=== PATIENT | female | born 1945 | race Caucasian/White ===

== ENCOUNTER 2017-09-24 16:34 | Inpatient (IN) | payer MEDICARE, OTHER ==
--- NOTE | 2017-09-24 17:03 | ED Physician Chart ---
ED Chief Complaint/HPI - Patient Information Date Seen:: 09/24/17 Time Seen:: 16:45 Chief Complaint:: Agitation History of Present Illness:: onset x one day of agitation and aggressive behavior; no SIs, H/As, neck pain, C /P, Cough, SOB, Abd. Pain, A/N/V/D/C, fever, chills, or urinary s/s Allergies:: Allergies Allergy/AdvReac Type Severity Reaction Status Date / Time MDX No Known Allergies - Nka Allergy Verified 08/16/14 15:25 [No Known Allergies - Nka] Historian:: Patient, EMS Review:: Nurse's Note Reviewed, EMS run form Reviewed, Transfer documents Reviewed ED Review of Systems - Review of Systems General/Constitutional: No fever, No chills, No weight loss, No weakness, No diaphoresis, No edema, No loss of appetite Skin: No skin lesions, No rash, No bruising Head: No headache, No light-headedness Eyes: No loss of vision, No pain, No diplopia ENT: No earache, No nasal drainage, No sore throat, No tinnitus Neck: No neck pain, No swelling, No thyromegaly, No stiffness, No mass noted Cardio Vascular: No chest pain, No palpitations, No PND, No orthopnea, No edema Pulmonary: No SOB, No cough, No sputum, No wheezing GI: Nausea, Vomiting, Diarrhea, No pain, Melena, Hematochezia, No constipation, No hematemesis G/U: No dysuria, No frequency, 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, No abnormal vaginal bleed, No contraction Musculoskeletal: No bone or joint pain, No back pain, No muscle pain Endocrine: No polyuria, No polydipsia Psychiatric: Prior psych history, Depression, Anxiety, No suicidal ideation, No homicidal ideation, No auditory hallucination, No visual hallucination Hematopoietic: No bruising, No lymphadenopathy Allergic/Immuno: No urticaria, No angioedema Neurological: No syncope, No focal symptoms, No weakness, No paresthesia, No headache, No seizure, No dizziness, No confusion, No vertigo ED Past Medical History - Past Medical History Obtainable: Yes Past Medical History: HTN, Dyslipidemia, PUD/GERD, ESRD, Seizures Family History: Diabetes Melitus, HTN Social History: Non Smoker, No Alcohol, No Drug Use, Single, Care Facility Surgical History: Cholecystectomy Psychiatricy History: Depression, Schizophrenia, Bipolar Medication: Reviewed Family Medical History - Family Member Father History Unknown: Yes Ethnicity: Unknown Living Status: Unknown Hx Family Coronary Artery Disease: Yes Hx Family Seizures: Yes ED Physical Exam - Physical Examination General/Constitutional: Awake, Well-developed, well-nourished, Alert, No distress, GCS 15, Non-toxic appearing, Ambulatory Head: Atraumatic Eyes: Lids, conjuctiva normal, PERRL, EOMI Skin: Nl inspection, No rash, No skin lesions, No ecchymosis, Well hydrated, No lymphadenopathy ENMT: External ears, nose nl, Nasal exam nl, Lips, teeth, gums nl Neck: Nontender, Full ROM w/o pain, No JVD, No nuchal rigidity, No bruit, No mass, No stridor Respiratory: Nl effort/Exclusion, Clear to Auscultation, No Wheeze/Rhonchi/Rales Cardio Vascular: RRR, No murmur, gallop, rubs, NL S1 S2 GI: No tenderness/rebounding/guarding, No organomegaly, No hernia, Normal BS's, Nondistended, No mass/bruits, No McBurney tenderness : No CVA tenderness Extremities: No tenderness or effusion, Full ROM, normal strength in all extremities, No edema, Normal digits & nails Neuro/Psych: Alert/oriented, DTR's symmetric, Normal sensory exam, Normal motor strength, Normal gait, No focal deficits Other Neuro/Psych comments:: + Psychomotor Agitation; Mood/Affect: Labile; no SIs Misc: Normal back, No paraspinal tenderness ED Labs/Radiology/EKG Results - Lab Results Comments:: unremarkable - EKG Interpretations EKG Time:: 17:27 Rate & Rhythm: 65; NSR Comments:: non-specific st-t changes ED Septic Shock - . Is Septic Shock (SBP<90, OR Lactate>4 mmol\L) present?: No ED Reassessment (Disposition) - Reassessment Reassessment Condition:: Improved - Diagnosis Diagnosis:: Dx: Agitation; BiPolar Disorder; Schizophrenia; Manic-Depression - Aftercare/Follow up Instructions Aftercare/Follow-Up Instructions:: Counseled pt regarding lab results/diagnosis & need follow up, Counseled pt & family regarding lab results/diagnosis & need follow up - Patient Disposition Discharge/Transfer:: Acute Care w/in this hosp Admitted to:: [facility] Condition at Disposition:: Stable, Improved
[2017-09-24 17:32] LABS: URINE MICROSCOPIC INDICATED? YES; URINE SOURCE CLEAN C
[2017-09-24 17:37] LABS: % BASOPHILS 0.9 % (0.0-2.0); % EOSINOPHILS 2.6 % (0.0-5.0); % LYMPHOCYTES 48.5 % (20.0-50.0); % MONOCYTES 7.4 % (2.0-10.0); % NEUTROPHILS 40.6 % (40.0-80.0); EOSINOPHILE ABSOLUTE 0.1 Th/cmm (0.1-0.4); LYMPHOCYTE ABSOLUTE 2.4 Th/cmm (1.5-3.0); MEAN CELL VOLUME 97.6 fl (81-100); MEAN CORPUSCULAR HEMOGLOBIN 33.2 pg (27.0-31.0); MEAN PLATELET VOLUME 8.6 fl; MONOCYTE ABSOLUTE 0.4 Th/cmm (0.3-1.0); PLATELET COUNT 138 Th/cmm (150-400); RED BLOOD COUNT 4.01 Mil/cmm (3.80-5.20); RED CELL DISTRIBUTION WIDTH 13.9 % (11.5-20.0)
[2017-09-24 17:46] LABS: URINE BILIRUBIN NEGATIVE (NEGATIVE); URINE BLOOD NEGATIVE (NEGATIVE); URINE GLUCOSE (UA) NEGATIVE (NEGATIVE); URINE KETONE NEGATIVE (NEGATIVE); URINE LEUKOCYTE ESTERASE NEGATIVE (NEGATIVE); URINE NITRATE NEGATIVE (NEGATIVE); URINE PH 6.5 (4.6 - 8.0); URINE PROTEIN NEGATIVE (NEGATIVE); URINE UROBILINOGEN 0.2 E.U./dL (0.2 - 1.0)
[2017-09-24 17:50] LABS: ACETAMINOPHEN < 10.0 ug/mL (10.0-30.0); ALBUMIN 3.6 gm/dL (3.7-5.3); ALKALINE PHOSPHATASE 88 U/L (34-104); ANION GAP 5.4 (7.0-16.0); BILIRUBIN,TOTAL 0.5 mg/dL (0.3-1.0); BUN - UREA NITROGEN 29 mg/dL (7-25); CALCIUM SERUM 10.1 mg/dL (8.6-10.3); CARBON DIOXIDE 31.1 mEq/L (21.0-31.0); CHLORIDE 103 mEq/L (98-107); CHOLESTEROL 150 mg/dL (<200); CREATININE - SERUM 0.8 mg/dL (0.6-1.2); GFR AFRICAN-AMERICAN > 60.0 ml/min (>90); GFR NON AFRICAN-AMERICAN > 60.0 ml/min; GLUCOSE 94 mg/dL (70-105); HDL -HIGH DENSITY LIPOPROTEIN 53 mg/dL (23-92); POTASSIUM SERUM 4.5 mEq/L (3.5-5.1); SALICYLATES (ASPIRIN) < 25.0 mg/L (30.0-100.0); SGOT 49 U/L (13-39); SGPT/ALT 60 U/L (7-52); SODIUM SERUM 135 mEq/L (136-145); TOTAL PROTEIN,SERUM 7.1 gm/dL (6.0-8.3); TRIGLYCERIDES 77 mg/dL (<150)
[2017-09-24 17:52] LABS: HEMOGLOBIN 13.3 gm/dL (12-16); WHITE BLOOD COUNT 4.9 Th/cmm (4.8-10.8)
[2017-09-24 17:53] LABS: A1C % 4.8 % (4.0-6.0); HEMATOCRIT 39.1 % (41.0-60)
[2017-09-24 18:00] LABS: URINE CLARITY CLEAR (CLEAR); URINE COLOR YELLOW
[2017-09-24 18:01] LABS: URINE BACTERIA NONE SEEN /hpf (NONE SEEN); URINE EPITHELIAL CELLS NONE SEEN /lpf (FEW); URINE RBC NONE SEEN /hpf (0-5); URINE WBC NONE SEEN /hpf (0-5)
[2017-09-24 18:14] LABS: AMPHETAMINE URINE NEGATIVE (NEGATIVE); BARBITURATES URINE NEGATIVE (NEGATIVE); BENZODIAZEPINES QUAL URINE POSITIVE (NEGATIVE); CANNABINOID THC NEGATIVE (NEGATIVE); COCAINE METABOLITE QUAL URINE NEGATIVE (NEGATIVE); METHADONE URINE NEGATIVE (NEGATIVE); METHAMPHETAMINES QUAL URINE NEGATIVE (NEGATIVE); OPIATES (MORPHINE) QUAL. URINE NEGATIVE (NEGATIVE); PHENCYCLIDINE (PCP) URINE NEGATIVE (NEGATIVE); TRICYCLICS (TCA) QUAL. URINE NEGATIVE (NEGATIVE)
[2017-09-24] MEDS ORDERED: Magnesium Hydroxide (MOM) 30 mL UDC PO PRN (22:10)
[2017-09-24] MEDS ORDERED: Maalox 30 mL Cup PO PRN (22:10)
[2017-09-25 00:11] VITALS: BP 131/59
[2017-09-25] MEDS: Multivitamin Tab PO SCH (08:29)
--- NOTE | 2017-09-25 08:43 | History and Physical ---
History of Present Illness - HPI Chief Complaint: Increased in agitation HPI: Patient is a permanent resident of a intermediate, she was send for evaluation secondary that patient became agitated and agressive. She was transferred for evaluation and treatment. 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 Pertinent Hx GI: Report: No Pertinent Hx Psych: Report: Psychosis, Schizophrenia Musculoskeletal: Report: Weakness Rheumatologic: Report: No pertinent Hx Infectious Disease: Report: No Pertinent Hx Renal/: Report: No Pertinent Hx Endocrine: Report: No Pertinent Hx Dermatology: Report: No Pertinent Hx - Past Surgical History Past Surgical History: No pertinent Hx Family Medical History - Family Member Father History Unknown: Yes Ethnicity: Unknown Living Status: Unknown Hx Family Coronary Artery Disease: Yes Hx Family Seizures: Yes Social History Smoke: <1 pack per day Alcohol: None Drugs: None Lives: [facility] Domestic Violence: Negative - Medications Home Medications: Home Medication Medication Instructions Recorded Type Acetaminophen [Mapap] 650 mg PO Q4H PRN 08/16/14 History Docusate Sodium [Colace] 100 mg PO BID 08/16/14 History Gabapentin [Neurontin] 300 mg PO BID 08/16/14 History Olanzapine 5 mg PO Q12H 04/05/15 History Acetaminophen [Tylenol] 325 mg PO Q4HR PRN 09/24/17 History Atomoxetine HCl [Strattera] 40 mg PO HS 09/24/17 History Cran/Vitc/Mannose/Fos/Bromeln 30 ml PO BID 09/24/17 History [Uti-Stat Liquid] Cranberry Conc/C/Bacill Coag 1 each PO BID 09/24/17 History [Cranberry Tablet] Dextromethorphan/Quinidine 1 cap PO Q12H 09/24/17 History [Nuedexta 20mg-10mg] Divalproex DR [Depakote DR] 125 mg PO Q12H 09/24/17 History Lorazepam [Ativan] 0.5 mg PO Q6HR PRN 09/24/17 History Magnesium Hydroxide [Milk of 30 ml PO Q72HR 09/24/17 History Magnesia] Nitroglycerin [Nitrostat*] 0.4 mg SL Q5MIN PRN MDD 3 09/24/17 History PARoxetine [Paxil] 10 mg PO DAILY 09/24/17 History Trazodone HCl 150 mg PO HS 09/24/17 History - Allergies Allergies/Adverse Reactions: Allergies Allergy/AdvReac Type Severity Reaction Status Date / Time codeine Allergy Unverified 09/24/17 22:42 Review of Systems - Review of Systems Constitutional: Report: Weakness Eyes: Report: No Significant ENT: Report: No Significant Respiratory: Report: No Significant Cardiovascular: Report: No Significant Gastrointestinal: Report: No Significant Genitourinary: Report: No Significant Musculoskeletal: Report: No Significant Skin: Report: No Significant Neurological: Report: Weakness Physical Exam - Physical Exam HEENT: Report: Ears Nose Throat within normal limits Neck: Report: Within normal limits Cardiovascular Systems: Report: Regular, Rate and Rhythm Respiratory: Report: Breath Sounds are within normal limits Abdomen: Report: Non-tender to palpation Back: Report: Inspection of back is within normal limits. Extremities: Report: Non-tender to palpation. Skin: Report: Color of skin is within normal limits Neuro/Psych: Report: No motor deficit (Patient is awake, calm, confused, not oriented) - Assessment Assessment: Patient is awake, alert, calm, confused, not oriented. Dx Psychosis, Schizophrenia. - Plan Plan: Patient under Psychiatric care. Will continue with some SNF meds.
[2017-09-25] MEDS ORDERED: Magnesium Hydroxide (MOM) 30 mL UDC PO SCH (08:45)
[2017-09-25] MEDS ORDERED: OLANZAPINE 5 MG PO SCH (09:00)
[2017-09-25] MEDS ORDERED: Non-Formulary Item 1 EA (Cranberry Conc/C/Bacill Coag [Cranberry Tablet] 1 EACH) PO SCH (09:00)
--- NOTE | 2017-09-25 22:39 | Psychosocial Evaluation ---
DATE OF SERVICE: 09/25/2017 IDENTIFYING DATA: The patient is a 72-year-old woman, resident of [facility]. Information obtained by directly interviewing the patient as well as reviewing the admission paper. JUSTIFICATION FOR HOSPITALIZATION: The patient is admitted here on a voluntary basis in view of her agitation and psychosis. CHIEF COMPLAINT: "I need to get these babies out." HISTORY OF PRESENT ILLNESS: This is one of multiple psychiatric hospitalizations for this patient who was hospitalized here in 2015. The patient has been diagnosed to have schizoaffective disorder and the patient has been stabilized and was discharged. The patient is currently at [facility] and the patient's staff was spoken to. The patient is interviewed. During the interview, the patient has been mentioning that she has the babies coming out of her belly and I need to help her and she states she does not want to have the babies any longer. The patient has been screaming and yelling earlier and has been also reported to be cursing and getting uncontrollable at the facility and the patient has to be transferred over here for stabilization. At the time of hospitalization, the patient has been stating that she is not able to sleep and her appetite is fair, but she is more worried about the babies. At the time of the hospitalization, the patient has been only on Paxil 10 mg in the morning and the patient is also reported to be on 125 mg of the Depakote before and the patient at this time is not able to contract for her safety. Plan to start the patient on the lower dose of Seroquel and in view of the psychosis, Seroquel, low dose is to be added and the patient is going to be provided with the supportive therapy. PAST PSYCHIATRIC HISTORY: Please refer to the above. MEDICAL HISTORY: PHYSICAL EXAMINATION: Requested to be done by Dr. Sutton. SUBSTANCE ABUSE HISTORY: None. PHYSICAL OR SEXUAL ABUSE HISTORY: None. LEGAL PROBLEMS: None at this time. STRENGTH AND ASSETS: The patient is motivated. MENTAL STATUS EXAMINATION: The patient is a 72-year-old woman looking older than her stated age, cooperative. Eye contact is fair. Mood is noted to be irritable. Affect is constricted. The patient's insight and judgment are very much impaired. Impulse control seems to be poor. The patient is screaming and yelling and is stating that she has babies coming out of her abdomen and I need to make sure that is okay, but also mentioned that she does not need to have any more babies. The patient is grossly psychotic at this time. The patient is alert and aware that she is in the hospital, but short and residential memory are noted to be impaired. Attention span and concentration are noted to be poor at this time. DIAGNOSTIC IMPRESSION: AXIS I: Psychosis, not otherwise specified, rule out schizoaffective disorder. AXIS II: None. AXIS III: As per Dr. Sutton. IMMEDIATE TREATMENT PLAN: The patient is going to be observed on the inpatient unit. The patient is going to be started on the Seroquel and the Paxil is going to be discontinued. ESTIMATED LENGTH OF STAY: Three to five days. DISCHARGE CRITERIA: When she no longer is a threat to self or others and be able to cope up with the stress. JOB# [id number]
--- NOTE | 2017-09-26 08:59 | General Progress Note ---
Subjective - Review of Systems Service Date: 09/26/17 Subjective: I want go home Objective - Results Result Diagrams: 09/24/17 17:24 09/24/17 17:24 Recent Labs: Laboratory Last Values WBC 4.9 Th/cmm (4.8-10.8) D 09/24/17 17:24 RBC 4.01 Mil/cmm (3.80-5.20) 09/24/17 17:24 Hgb 13.3 gm/dL (12-16) D 09/24/17 17:24 Hct 39.1 % (41.0-60) L D 09/24/17 17:24 MCV 97.6 fl (81-100) 09/24/17 17:24 MCH 33.2 pg (27.0-31.0) H 09/24/17 17:24 MCHC Differential 34.0 pg (28.0-36.0) 09/24/17 17:24 RDW 13.9 % (11.5-20.0) 09/24/17 17:24 Plt Count 138 Th/cmm (150-400) L D 09/24/17 17:24 MPV 8.6 fl 09/24/17 17:24 Neutrophils % 40.6 % (40.0-80.0) 09/24/17 17:24 Lymphocytes % 48.5 % (20.0-50.0) 09/24/17 17:24 Monocytes % 7.4 % (2.0-10.0) 09/24/17 17:24 Eosinophils % 2.6 % (0.0-5.0) 09/24/17 17:24 Basophils % 0.9 % (0.0-2.0) 09/24/17 17:24 Sodium 135 mEq/L (136-145) L 09/24/17 17:24 Potassium 4.5 mEq/L (3.5-5.1) 09/24/17 17:24 Chloride 103 mEq/L (98-107) 09/24/17 17:24 Carbon Dioxide 31.1 mEq/L (21.0-31.0) H 09/24/17 17:24 Anion Gap 5.4 (7.0-16.0) L 09/24/17 17:24 BUN 29 mg/dL (7-25) H 09/24/17 17:24 Creatinine 0.8 mg/dL (0.6-1.2) 09/24/17 17:24 Est GFR ( Amer) > 60.0 ml/min (>90) 09/24/17 17:24 Est GFR (Non-Af Amer) > 60.0 ml/min 09/24/17 17:24 BUN/Creatinine Ratio 36.3 09/24/17 17:24 Glucose 94 mg/dL (70-105) 09/24/17 17:24 Hemoglobin A1c % 4.8 % (4.0-6.0) 09/24/17 17:24 Calcium 10.1 mg/dL (8.6-10.3) 09/24/17:24 Total Bilirubin 0.5 mg/dL (0.3-1.0) 09/24/17 17:24 AST 49 U/L (13-39) H 09/24/17 17:24 ALT 60 U/L (7-52) H 09/24/17 17:24 Alkaline Phosphatase 88 U/L (34-104) 09/24/17 17:24 Total Protein 7.1 gm/dL (6.0-8.3) 09/24/17 17:24 Albumin 3.6 gm/dL (3.7-5.3) L 09/24/17:24 Globulin 3.5 gm/dL 09/24/17 17:24 Albumin/Globulin Ratio 1.0 (1.0-1.8) 09/24/17 17:24 Triglycerides 77 mg/dL (<150) 09/24/17 17:24 Cholesterol 150 mg/dL (<200) 09/24/17 17:24 LDL Cholesterol Direct 80 mg/dL (75-193) 09/24/17 17:24 HDL Cholesterol 53 mg/dL (23-92) 09/24/17 17:24 TSH 0.65 uIU/ml (0.34-5.60) 09/24/17 17:24 Urine Source CLEAN C 09/24/17 17:10 Urine Color YELLOW 09/24/17 17:10 Urine Clarity CLEAR (CLEAR) 09/24/17 17:10 Urine pH 6.5 (4.6 - 8.0) 09/24/17 17:10 Ur Specific [place] 1.020 (1.005-1.030) 09/24/17 17:10 Urine Protein NEGATIVE mg/dL (NEGATIVE) 09/24/17 17:10 Urine Glucose (UA) NEGATIVE mg/dL (NEGATIVE) 09/24/17 17:10 Urine Ketones NEGATIVE mg/dL (NEGATIVE) 09/24/17 17:10 Urine Blood NEGATIVE (NEGATIVE) 09/24/17 17:10 Urine Nitrate NEGATIVE (NEGATIVE) 09/24/17 17:10 Urine Bilirubin NEGATIVE (NEGATIVE) 09/24/17 17:10 Urine Urobilinogen 0.2 E.U./dL (0.2 - 1.0) 09/24/17 17:10 Ur Leukocyte Esterase NEGATIVE (NEGATIVE) 09/24/17 17:10 Urine RBC NONE SEEN /hpf (0-5) 09/24/17 17:10 Urine WBC NONE SEEN /hpf (0-5) 09/24/17 17:10 Ur Epithelial Cells NONE SEEN /lpf (FEW) 09/24/17 17:10 Urine Bacteria NONE SEEN /hpf (NONE SEEN) 09/24/17 17:10 Salicylates < 25.0 mg/L (30.0-100.0) L 09/24/17 17:24 Urine Opiates Screen NEGATIVE (NEGATIVE) 09/24/17 17:10 Urine Methadone Screen NEGATIVE (NEGATIVE) 09/24/17 17:10 Acetaminophen < 10.0 ug/mL (10.0-30.0) L 09/24/17 17:24 Ur Barbiturates Screen NEGATIVE (NEGATIVE) 09/24/17 17:10 Ur Tricyclics Screen NEGATIVE (NEGATIVE) 09/24/17 17:10 Ur Phencyclidine Scrn NEGATIVE (NEGATIVE) 09/24/17 17:10 Amphetamines Screen NEGATIVE (NEGATIVE) 09/24/17 17:10 U Methamphetamines Scrn NEGATIVE (NEGATIVE) 09/24/17 17:10 U Benzodiazepines Scrn POSITIVE (NEGATIVE) H 09/24/17 17:10 U Cocaine Metab Screen NEGATIVE (NEGATIVE) 09/24/17 17:10 U Cannabinoids Screen NEGATIVE (NEGATIVE) 09/24/17 17:10 Ethyl Alcohol < 10 mg/dL (0-10) 09/24/17 17:24 RPR NONREACTIVE (NONREACTIVE) 09/24/17 17:24 - Physical Exam Vitals and I&O: Vital Signs Temp 98.4 F 09/26/17 06:41 Pulse 71 09/26/17 06:41 Resp 20 09/26/17 06:41 BP 142/79 09/26/17 06:41 Pulse Ox 98 09/26/17 06:41 Intake & Output 09/25/17 09/26/17 09/26/17 18:59 06:59 18:59 Intake Total 120 Balance 120 Intake: Oral 120 Other: # Voids 3 Active Medications: Current Medications Acetaminophen (Tylenol) 650 mg PO Q4HR PRN PRN Reason: Mild Pain / Temp above 100 Stop: 11/23/17 22:09 Al Hydrox/Mg Hydrox/Simethicone (Maalox) 30 ml PO Q4HR PRN PRN Reason: GI DISTRESS Stop: 11/23/17 22:09 Docusate Sodium (Colace) 100 mg PO BID STEFANY Stop: 11/24/17 08:59 Last Admin: 09/25/17 16:41 Dose: 100 mg Lorazepam (Ativan) 0.5 mg PO Q4HR PRN; Protocol PRN Reason: Anxiety Stop: 10/24/17 22:09 Last Admin: 09/25/17 08:29 Dose: 0.5 mg Magnesium Hydroxide (Milk Of Magnesia) 30 ml PO HS PRN PRN Reason: Constipation Multivitamins/Vitamin C (Theragran) 1 tab PO DAILY STEFANY Stop: 11/24/17 08:59 Last Admin: 09/25/17 08:29 Dose: 1 tab Quetiapine Fumarate (Seroquel) 25 mg PO HS STEFANY PRN Reason: Protocol Stop: 11/24/17 20:59 Zolpidem Tartrate (Ambien) 5 mg PO HS PRN PRN Reason: Insomnia Stop: 11/23/17 22:09 General: Alert, Other (Confused, not oriented) HEENT: Atraumatic Neck: Supple Cardiovascular: Regular rate Lungs: Clear to auscultation Abdomen: Bowel sounds Extremities: Other (No edema) Neurological: Other (Unstable gait) Skin: Other (Warm and dry) Psych/Mental Status: Other (Confused, not oriented) - Procedures Procedures: Procedures Procedure Code Date ABDOMINAL PROCTOPEXY 48.75 04/05/15 CORRECT RECTAL PROLAPSE 61232 04/05/15 OTHER GROUP THERAPY 94.44 04/13/15 Assessment/Plan - Problem List Patient Problems: All Active Problems Agitation (Acute) R45.1 Alzheimer's disease (Acute) G30.9 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 Dx Psychosis, Schizophrenia. - Plan Plan: Patient under Psychiatric care. Will continue with some SNF meds.
[2017-09-26] MEDS: Multivitamin Tab PO SCH (10:02)
--- NOTE | 2017-09-26 17:06 | Progress Notes ---
DATE: 09/26/2017 SUBJECTIVE: Staff was spoken to. The patient is interviewed. Mood is noted to be irritable. Affect is constricted. Insight and judgment at this time are noted to be impaired. Impulse control seems to be poor. Coping skills are also noted to be poor. The patient has been having difficult time to cope with the stress. The patient is currently on olanzapine 5 mg q. h., and patient also has been placed on the Seroquel to help her with the sleep. The patient continues to be paranoid at this time. No side effects to the medications are noted. ASSESSMENT: The patient is still impulsive. PLAN: To continue the patient with the current medications. I encouraged the patient to verbalize the concerns rather than to act out. Plan to gradually increase the dose on the Seroquel to 25 mg at bedtime and closely monitor the patient for any side effects. [facility]# [id number]
[2017-09-27] MEDS: Multivitamin Tab PO SCH (08:36)
--- NOTE | 2017-09-27 12:36 | General Progress Note ---
Subjective - Review of Systems Service Date: 09/27/17 Subjective: I want go home Objective - Results Result Diagrams: 09/24/17 17:24 09/24/17 17:24 Recent Labs: Laboratory Last Values WBC 4.9 Th/cmm (4.8-10.8) D 09/24/17 17:24 RBC 4.01 Mil/cmm (3.80-5.20) 09/24/17 17:24 Hgb 13.3 gm/dL (12-16) D 09/24/17 17:24 Hct 39.1 % (41.0-60) L D 09/24/17 17:24 MCV 97.6 fl (81-100) 09/24/17 17:24 MCH 33.2 pg (27.0-31.0) H 09/24/17 17:24 MCHC Differential 34.0 pg (28.0-36.0) 09/24/17 17:24 RDW 13.9 % (11.5-20.0) 09/24/17 17:24 Plt Count 138 Th/cmm (150-400) L D 09/24/17 17:24 MPV 8.6 fl 09/24/17 17:24 Neutrophils % 40.6 % (40.0-80.0) 09/24/17 17:24 Lymphocytes % 48.5 % (20.0-50.0) 09/24/17 17:24 Monocytes % 7.4 % (2.0-10.0) 09/24/17 17:24 Eosinophils % 2.6 % (0.0-5.0) 09/24/17 17:24 Basophils % 0.9 % (0.0-2.0) 09/24/17 17:24 Sodium 135 mEq/L (136-145) L 09/24/17 17:24 Potassium 4.5 mEq/L (3.5-5.1) 09/24/17 17:24 Chloride 103 mEq/L (98-107) 09/24/17 17:24 Carbon Dioxide 31.1 mEq/L (21.0-31.0) H 09/24/17 17:24 Anion Gap 5.4 (7.0-16.0) L 09/24/17 17:24 BUN 29 mg/dL (7-25) H 09/24/17 17:24 Creatinine 0.8 mg/dL (0.6-1.2) 09/24/17 17:24 Est GFR ( Amer) > 60.0 ml/min (>90) 09/24/17 17:24 Est GFR (Non-Af Amer) > 60.0 ml/min 09/24/17 17:24 BUN/Creatinine Ratio 36.3 09/24/17 17:24 Glucose 94 mg/dL (70-105) 09/24/17 17:24 Hemoglobin A1c % 4.8 % (4.0-6.0) 09/24/17 17:24 Calcium 10.1 mg/dL (8.6-10.3) 09/24/17:24 Total Bilirubin 0.5 mg/dL (0.3-1.0) 09/24/17 17:24 AST 49 U/L (13-39) H 09/24/17 17:24 ALT 60 U/L (7-52) H 09/24/17 17:24 Alkaline Phosphatase 88 U/L (34-104) 09/24/17 17:24 Total Protein 7.1 gm/dL (6.0-8.3) 09/24/17 17:24 Albumin 3.6 gm/dL (3.7-5.3) L 09/24/17:24 Globulin 3.5 gm/dL 09/24/17 17:24 Albumin/Globulin Ratio 1.0 (1.0-1.8) 09/24/17 17:24 Triglycerides 77 mg/dL (<150) 09/24/17 17:24 Cholesterol 150 mg/dL (<200) 09/24/17 17:24 LDL Cholesterol Direct 80 mg/dL (75-193) 09/24/17 17:24 HDL Cholesterol 53 mg/dL (23-92) 09/24/17 17:24 TSH 0.65 uIU/ml (0.34-5.60) 09/24/17 17:24 Urine Source CLEAN C 09/24/17 17:10 Urine Color YELLOW 09/24/17 17:10 Urine Clarity CLEAR (CLEAR) 09/24/17 17:10 Urine pH 6.5 (4.6 - 8.0) 09/24/17 17:10 Ur Specific [place] 1.020 (1.005-1.030) 09/24/17 17:10 Urine Protein NEGATIVE mg/dL (NEGATIVE) 09/24/17 17:10 Urine Glucose (UA) NEGATIVE mg/dL (NEGATIVE) 09/24/17 17:10 Urine Ketones NEGATIVE mg/dL (NEGATIVE) 09/24/17 17:10 Urine Blood NEGATIVE (NEGATIVE) 09/24/17 17:10 Urine Nitrate NEGATIVE (NEGATIVE) 09/24/17 17:10 Urine Bilirubin NEGATIVE (NEGATIVE) 09/24/17 17:10 Urine Urobilinogen 0.2 E.U./dL (0.2 - 1.0) 09/24/17 17:10 Ur Leukocyte Esterase NEGATIVE (NEGATIVE) 09/24/17 17:10 Urine RBC NONE SEEN /hpf (0-5) 09/24/17 17:10 Urine WBC NONE SEEN /hpf (0-5) 09/24/17 17:10 Ur Epithelial Cells NONE SEEN /lpf (FEW) 09/24/17 17:10 Urine Bacteria NONE SEEN /hpf (NONE SEEN) 09/24/17 17:10 Salicylates < 25.0 mg/L (30.0-100.0) L 09/24/17 17:24 Urine Opiates Screen NEGATIVE (NEGATIVE) 09/24/17 17:10 Urine Methadone Screen NEGATIVE (NEGATIVE) 09/24/17 17:10 Acetaminophen < 10.0 ug/mL (10.0-30.0) L 09/24/17 17:24 Ur Barbiturates Screen NEGATIVE (NEGATIVE) 09/24/17 17:10 Ur Tricyclics Screen NEGATIVE (NEGATIVE) 09/24/17 17:10 Ur Phencyclidine Scrn NEGATIVE (NEGATIVE) 09/24/17 17:10 Amphetamines Screen NEGATIVE (NEGATIVE) 09/24/17 17:10 U Methamphetamines Scrn NEGATIVE (NEGATIVE) 09/24/17 17:10 U Benzodiazepines Scrn POSITIVE (NEGATIVE) H 09/24/17 17:10 U Cocaine Metab Screen NEGATIVE (NEGATIVE) 09/24/17 17:10 U Cannabinoids Screen NEGATIVE (NEGATIVE) 09/24/17 17:10 Ethyl Alcohol < 10 mg/dL (0-10) 09/24/17 17:24 RPR NONREACTIVE (NONREACTIVE) 09/24/17 17:24 - Physical Exam Vitals and I&O: Vital Signs Temp 97.4 F 09/27/17 07:03 Pulse 91 09/27/17 07:03 Resp 20 09/27/17 07:03 BP 141/74 09/27/17 07:03 Pulse Ox 98 09/27/17 07:03 Intake & Output 09/26/17 09/27/17 09/27/17 18:59 06:59 18:59 Intake Total 120 Balance 120 Intake: Oral 120 Other: # Voids 3 Active Medications: Current Medications Acetaminophen (Tylenol) 650 mg PO Q4HR PRN PRN Reason: Mild Pain / Temp above 100 Stop: 11/23/17 22:09 Al Hydrox/Mg Hydrox/Simethicone (Maalox) 30 ml PO Q4HR PRN PRN Reason: GI DISTRESS Stop: 11/23/17 22:09 Docusate Sodium (Colace) 100 mg PO BID STEFANY Stop: 11/24/17 08:59 Last Admin: 09/27/17 08:36 Dose: 100 mg Lorazepam (Ativan) 0.5 mg PO Q4HR PRN; Protocol PRN Reason: Anxiety Stop: 10/24/17 22:09 Last Admin: 09/27/17 08:40 Dose: 0.5 mg Magnesium Hydroxide (Milk Of Magnesia) 30 ml PO HS PRN PRN Reason: Constipation Multivitamins/Vitamin C (Theragran) 1 tab PO DAILY STEFANY Stop: 11/24/17 08:59 Last Admin: 09/27/17 08:36 Dose: 1 tab Quetiapine Fumarate (Seroquel) 25 mg PO BID STEFANY PRN Reason: Protocol Stop: 11/26/17 16:59 Zolpidem Tartrate (Ambien) 5 mg PO HS PRN PRN Reason: Insomnia Stop: 11/23/17 22:09 General: Alert, Other (Confused, not oriented) HEENT: Atraumatic Neck: Supple Cardiovascular: Regular rate Lungs: Clear to auscultation Abdomen: Bowel sounds Extremities: Other (No edema) Neurological: Other (Unstable gait) Skin: Other (Warm and dry) Psych/Mental Status: Other (Confused, not oriented) - Procedures Procedures: Procedures Procedure Code Date ABDOMINAL PROCTOPEXY 48.75 04/05/15 CORRECT RECTAL PROLAPSE 55966 04/05/15 OTHER GROUP THERAPY 94.44 04/13/15 Assessment/Plan - Problem List Patient Problems: All Active Problems Agitation (Acute) R45.1 Alzheimer's disease (Acute) G30.9 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 Dx Psychosis, Schizophrenia. - Plan Plan: Patient under Psychiatric care. Will continue with some SNF meds.
--- NOTE | 2017-09-27 22:35 | Progress Notes ---
DATE: 09/27/2017 Staff was spoken to. The patient is interviewed. Mood is noted to be irritable. Affect is constricted. Insight and judgment are noted to be still impaired. Impulse control is noted to be poor. Coping skills are also noted to be poor. The patient is very delusional and has been getting easily irritable. The patient is currently on 25 mg of Seroquel, which is going to be gradually increased to 25 mg twice a day and the patient is going to be followed up because of O2 therapy. JOB# [id number]
[2017-09-28] MEDS: Multivitamin Tab PO SCH (08:49)
--- NOTE | 2017-09-28 09:57 | General Progress Note ---
Subjective - Review of Systems Service Date: 09/29/17 Subjective: I want go home Objective - Results Result Diagrams: 09/24/17 17:24 09/24/17 17:24 Recent Labs: Laboratory Last Values WBC 4.9 Th/cmm (4.8-10.8) D 09/24/17 17:24 RBC 4.01 Mil/cmm (3.80-5.20) 09/24/17 17:24 Hgb 13.3 gm/dL (12-16) D 09/24/17 17:24 Hct 39.1 % (41.0-60) L D 09/24/17 17:24 MCV 97.6 fl (81-100) 09/24/17 17:24 MCH 33.2 pg (27.0-31.0) H 09/24/17 17:24 MCHC Differential 34.0 pg (28.0-36.0) 09/24/17 17:24 RDW 13.9 % (11.5-20.0) 09/24/17 17:24 Plt Count 138 Th/cmm (150-400) L D 09/24/17 17:24 MPV 8.6 fl 09/24/17 17:24 Neutrophils % 40.6 % (40.0-80.0) 09/24/17 17:24 Lymphocytes % 48.5 % (20.0-50.0) 09/24/17 17:24 Monocytes % 7.4 % (2.0-10.0) 09/24/17 17:24 Eosinophils % 2.6 % (0.0-5.0) 09/24/17 17:24 Basophils % 0.9 % (0.0-2.0) 09/24/17 17:24 Sodium 135 mEq/L (136-145) L 09/24/17 17:24 Potassium 4.5 mEq/L (3.5-5.1) 09/24/17 17:24 Chloride 103 mEq/L (98-107) 09/24/17 17:24 Carbon Dioxide 31.1 mEq/L (21.0-31.0) H 09/24/17 17:24 Anion Gap 5.4 (7.0-16.0) L 09/24/17 17:24 BUN 29 mg/dL (7-25) H 09/24/17 17:24 Creatinine 0.8 mg/dL (0.6-1.2) 09/24/17 17:24 Est GFR ( Amer) > 60.0 ml/min (>90) 09/24/17 17:24 Est GFR (Non-Af Amer) > 60.0 ml/min 09/24/17 17:24 BUN/Creatinine Ratio 36.3 09/24/17 17:24 Glucose 94 mg/dL (70-105) 09/24/17 17:24 Hemoglobin A1c % 4.8 % (4.0-6.0) 09/24/17 17:24 Calcium 10.1 mg/dL (8.6-10.3) 09/24/17:24 Total Bilirubin 0.5 mg/dL (0.3-1.0) 09/24/17 17:24 AST 49 U/L (13-39) H 09/24/17 17:24 ALT 60 U/L (7-52) H 09/24/17 17:24 Alkaline Phosphatase 88 U/L (34-104) 09/24/17 17:24 Total Protein 7.1 gm/dL (6.0-8.3) 09/24/17 17:24 Albumin 3.6 gm/dL (3.7-5.3) L 09/24/17:24 Globulin 3.5 gm/dL 09/24/17 17:24 Albumin/Globulin Ratio 1.0 (1.0-1.8) 09/24/17 17:24 Triglycerides 77 mg/dL (<150) 09/24/17 17:24 Cholesterol 150 mg/dL (<200) 09/24/17 17:24 LDL Cholesterol Direct 80 mg/dL (75-193) 09/24/17 17:24 HDL Cholesterol 53 mg/dL (23-92) 09/24/17 17:24 TSH 0.65 uIU/ml (0.34-5.60) 09/24/17 17:24 Urine Source CLEAN C 09/24/17 17:10 Urine Color YELLOW 09/24/17 17:10 Urine Clarity CLEAR (CLEAR) 09/24/17 17:10 Urine pH 6.5 (4.6 - 8.0) 09/24/17 17:10 Ur Specific [place] 1.020 (1.005-1.030) 09/24/17 17:10 Urine Protein NEGATIVE mg/dL (NEGATIVE) 09/24/17 17:10 Urine Glucose (UA) NEGATIVE mg/dL (NEGATIVE) 09/24/17 17:10 Urine Ketones NEGATIVE mg/dL (NEGATIVE) 09/24/17 17:10 Urine Blood NEGATIVE (NEGATIVE) 09/24/17 17:10 Urine Nitrate NEGATIVE (NEGATIVE) 09/24/17 17:10 Urine Bilirubin NEGATIVE (NEGATIVE) 09/24/17 17:10 Urine Urobilinogen 0.2 E.U./dL (0.2 - 1.0) 09/24/17 17:10 Ur Leukocyte Esterase NEGATIVE (NEGATIVE) 09/24/17 17:10 Urine RBC NONE SEEN /hpf (0-5) 09/24/17 17:10 Urine WBC NONE SEEN /hpf (0-5) 09/24/17 17:10 Ur Epithelial Cells NONE SEEN /lpf (FEW) 09/24/17 17:10 Urine Bacteria NONE SEEN /hpf (NONE SEEN) 09/24/17 17:10 Salicylates < 25.0 mg/L (30.0-100.0) L 09/24/17 17:24 Urine Opiates Screen NEGATIVE (NEGATIVE) 09/24/17 17:10 Urine Methadone Screen NEGATIVE (NEGATIVE) 09/24/17 17:10 Acetaminophen < 10.0 ug/mL (10.0-30.0) L 09/24/17 17:24 Ur Barbiturates Screen NEGATIVE (NEGATIVE) 09/24/17 17:10 Ur Tricyclics Screen NEGATIVE (NEGATIVE) 09/24/17 17:10 Ur Phencyclidine Scrn NEGATIVE (NEGATIVE) 09/24/17 17:10 Amphetamines Screen NEGATIVE (NEGATIVE) 09/24/17 17:10 U Methamphetamines Scrn NEGATIVE (NEGATIVE) 09/24/17 17:10 U Benzodiazepines Scrn POSITIVE (NEGATIVE) H 09/24/17 17:10 U Cocaine Metab Screen NEGATIVE (NEGATIVE) 09/24/17 17:10 U Cannabinoids Screen NEGATIVE (NEGATIVE) 09/24/17 17:10 Ethyl Alcohol < 10 mg/dL (0-10) 09/24/17 17:24 RPR NONREACTIVE (NONREACTIVE) 09/24/17 17:24 - Physical Exam Vitals and I&O: Vital Signs Temp 97.8 F 09/27/17 14:00 Pulse 76 09/27/17 14:00 Resp 19 09/27/17 14:00 BP 148/73 09/27/17 14:00 Pulse Ox 96 09/27/17 14:00 Intake & Output 09/27/17 09/28/17 09/28/17 18:59 06:59 18:59 Intake Total 1320 Balance 1320 Intake: Oral 1320 Other: # Voids 3 # Bowel Movements 1 Active Medications: Current Medications Acetaminophen (Tylenol) 650 mg PO Q4HR PRN PRN Reason: Mild Pain / Temp above 100 Stop: 11/23/17 22:09 Al Hydrox/Mg Hydrox/Simethicone (Maalox) 30 ml PO Q4HR PRN PRN Reason: GI DISTRESS Stop: 11/23/17 22:09 Docusate Sodium (Colace) 100 mg PO BID STEFANY Stop: 11/24/17 08:59 Last Admin: 09/28/17 08:50 Dose: 100 mg Lorazepam (Ativan) 0.5 mg PO Q4HR PRN; Protocol PRN Reason: Anxiety Stop: 10/24/17 22:09 Last Admin: 09/27/17 08:40 Dose: 0.5 mg Magnesium Hydroxide (Milk Of Magnesia) 30 ml PO HS PRN PRN Reason: Constipation Multivitamins/Vitamin C (Theragran) 1 tab PO DAILY STEFANY Stop: 11/24/17 08:59 Last Admin: 09/28/17 08:49 Dose: 1 tab Quetiapine Fumarate (Seroquel) 25 mg PO BID STEFANY PRN Reason: Protocol Stop: 11/26/17 16:59 Last Admin: 09/27/17 17:38 Dose: 25 mg Zolpidem Tartrate (Ambien) 5 mg PO HS PRN PRN Reason: Insomnia Stop: 11/23/17 22:09 Last Admin: 09/27/17 23:42 Dose: 5 mg General: Alert, Other (Confused, not oriented) HEENT: Atraumatic Neck: Supple Cardiovascular: Regular rate Lungs: Clear to auscultation Abdomen: Bowel sounds Extremities: Other (No edema) Neurological: Other (Unstable gait) Skin: Other (Warm and dry) Psych/Mental Status: Other (Confused, not oriented) - Procedures Procedures: Procedures Procedure Code Date ABDOMINAL PROCTOPEXY 48.75 04/05/15 CORRECT RECTAL PROLAPSE 37060 04/05/15 OTHER GROUP THERAPY 94.44 04/13/15 Assessment/Plan - Problem List Patient Problems: All Active Problems Agitation (Acute) R45.1 Alzheimer's disease (Acute) G30.9 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 Dx Psychosis, Schizophrenia. - Plan Plan: Patient under Psychiatric care. Will continue with some SNF meds. Nutritional Asmnt/Malnutr-PDOC - Dietary Evaluation Malnutrition Findings (Please click <Entered> for more info): Nutritional Asmnt/Malnutrition Start: 09/27/17 16: 52 Text: Status: Complete Freq: Document 09/27/17 16:54 GSUN (Rec: 09/27/17 17:02 GSUN [email or web address]) Nutritional Asmnt/Malnutrition Patient General Information Nutritional Screening Moderate Risk Screening Diagnosis Psychosis NOS r/o schizoaffective disorder Pertinent Medical Hx/Surgical Hx Weakness, psychosis Subjective Information 72 year old female from SNF. Per nursing notes, pt is delusional. Spoke to pt in caty in rec room during meal time. Pt was talkative, a poor historian, off topic, did not provide much nutrition hx. Observed pt finished >75% of meal during visit without chew /swallowing difficulties noted . Pt apepared overweight, no muscle/fat wasting noted. Pt is edentulous on ground, stated has dentures but unable to state where, questionable. No nutritinoal concerns per nursing staff. Current Diet Order/ Nutrition Support [facility] soft ground Pertinent Medications Colace, MOM, Theragran, Seroquel Pertinent Labs 09/24: reviewed Nutritional Hx/Data Height 1.75 m Height (Calculated Centimeters) 175.3 Current Weight (lbs) 84.368 kg Weight (Calculated Kilograms) 84.4 Weight (Calculated Grams) 13746.2 [place] Body Weight 145 Recent Weight Change No Weight Status Overweight GI Symptoms Food Allergies No Usual diet at home [facility]: ground, regular Skin Integrity/Comment: Jonel Stallings. Current %PO Good (75-100%) Estimated Nutritional Goals Calories/Kcals/Kg IBW 145lb/65.9kg Kcals Calculated 1648-1977kcal (25-30kcal/kg) Protein Calculated 66g (1g/kg) Fluid: ml 1648-1977ml (1ml/kcal) Nutritional Problem 1. Problem Problem No nutritnioal problem at this time. Intervention/Recommendation Comments 1. Continue with current diet order. 2. Nursing staff to record %PO of every meal. Expected Outcomes/Goals Expected Outcomes/Goals 1. PO intake to meet at least 75% of estimated nutritinoal needs.
--- NOTE | 2017-09-28 21:48 | Progress Notes ---
DATE: 09/28/2017 SUBJECTIVE: Staff was spoken to. The patient is interviewed. Mood is noted to be irritable. Affect is constricted. Continues to be grossly psychotic. The patient has been stating that she needs to have all the babies to come out. The patient's coping skills at this time are noted to be very poor. The patient is stating that too many babies are there, and she needs to help the surgery. ASSESSMENT: The patient is still grossly psychotic and impulsive. PLAN: To continue the patient with the current medications. I encouraged the patient to verbalize the concerns rather than to act out. JOB# [id number]
[2017-09-29] MEDS: Multivitamin Tab PO SCH (08:33)
--- NOTE | 2017-09-29 11:48 | General Progress Note ---
Subjective - Review of Systems Service Date: 09/29/17 Subjective: I want go home Objective - Results Result Diagrams: 09/24/17 17:24 09/24/17 17:24 Recent Labs: Laboratory Last Values WBC 4.9 Th/cmm (4.8-10.8) D 09/24/17 17:24 RBC 4.01 Mil/cmm (3.80-5.20) 09/24/17 17:24 Hgb 13.3 gm/dL (12-16) D 09/24/17 17:24 Hct 39.1 % (41.0-60) L D 09/24/17 17:24 MCV 97.6 fl (81-100) 09/24/17 17:24 MCH 33.2 pg (27.0-31.0) H 09/24/17 17:24 MCHC Differential 34.0 pg (28.0-36.0) 09/24/17 17:24 RDW 13.9 % (11.5-20.0) 09/24/17 17:24 Plt Count 138 Th/cmm (150-400) L D 09/24/17 17:24 MPV 8.6 fl 09/24/17 17:24 Neutrophils % 40.6 % (40.0-80.0) 09/24/17 17:24 Lymphocytes % 48.5 % (20.0-50.0) 09/24/17 17:24 Monocytes % 7.4 % (2.0-10.0) 09/24/17 17:24 Eosinophils % 2.6 % (0.0-5.0) 09/24/17 17:24 Basophils % 0.9 % (0.0-2.0) 09/24/17 17:24 Sodium 135 mEq/L (136-145) L 09/24/17 17:24 Potassium 4.5 mEq/L (3.5-5.1) 09/24/17 17:24 Chloride 103 mEq/L (98-107) 09/24/17 17:24 Carbon Dioxide 31.1 mEq/L (21.0-31.0) H 09/24/17 17:24 Anion Gap 5.4 (7.0-16.0) L 09/24/17 17:24 BUN 29 mg/dL (7-25) H 09/24/17 17:24 Creatinine 0.8 mg/dL (0.6-1.2) 09/24/17 17:24 Est GFR ( Amer) > 60.0 ml/min (>90) 09/24/17 17:24 Est GFR (Non-Af Amer) > 60.0 ml/min 09/24/17 17:24 BUN/Creatinine Ratio 36.3 09/24/17 17:24 Glucose 94 mg/dL (70-105) 09/24/17 17:24 Hemoglobin A1c % 4.8 % (4.0-6.0) 09/24/17 17:24 Calcium 10.1 mg/dL (8.6-10.3) 09/24/17:24 Total Bilirubin 0.5 mg/dL (0.3-1.0) 09/24/17 17:24 AST 49 U/L (13-39) H 09/24/17 17:24 ALT 60 U/L (7-52) H 09/24/17 17:24 Alkaline Phosphatase 88 U/L (34-104) 09/24/17 17:24 Total Protein 7.1 gm/dL (6.0-8.3) 09/24/17 17:24 Albumin 3.6 gm/dL (3.7-5.3) L 09/24/17:24 Globulin 3.5 gm/dL 09/24/17 17:24 Albumin/Globulin Ratio 1.0 (1.0-1.8) 09/24/17 17:24 Triglycerides 77 mg/dL (<150) 09/24/17 17:24 Cholesterol 150 mg/dL (<200) 09/24/17 17:24 LDL Cholesterol Direct 80 mg/dL (75-193) 09/24/17 17:24 HDL Cholesterol 53 mg/dL (23-92) 09/24/17 17:24 TSH 0.65 uIU/ml (0.34-5.60) 09/24/17 17:24 Urine Source CLEAN C 09/24/17 17:10 Urine Color YELLOW 09/24/17 17:10 Urine Clarity CLEAR (CLEAR) 09/24/17 17:10 Urine pH 6.5 (4.6 - 8.0) 09/24/17 17:10 Ur Specific [place] 1.020 (1.005-1.030) 09/24/17 17:10 Urine Protein NEGATIVE mg/dL (NEGATIVE) 09/24/17 17:10 Urine Glucose (UA) NEGATIVE mg/dL (NEGATIVE) 09/24/17 17:10 Urine Ketones NEGATIVE mg/dL (NEGATIVE) 09/24/17 17:10 Urine Blood NEGATIVE (NEGATIVE) 09/24/17 17:10 Urine Nitrate NEGATIVE (NEGATIVE) 09/24/17 17:10 Urine Bilirubin NEGATIVE (NEGATIVE) 09/24/17 17:10 Urine Urobilinogen 0.2 E.U./dL (0.2 - 1.0) 09/24/17 17:10 Ur Leukocyte Esterase NEGATIVE (NEGATIVE) 09/24/17 17:10 Urine RBC NONE SEEN /hpf (0-5) 09/24/17 17:10 Urine WBC NONE SEEN /hpf (0-5) 09/24/17 17:10 Ur Epithelial Cells NONE SEEN /lpf (FEW) 09/24/17 17:10 Urine Bacteria NONE SEEN /hpf (NONE SEEN) 09/24/17 17:10 Salicylates < 25.0 mg/L (30.0-100.0) L 09/24/17 17:24 Urine Opiates Screen NEGATIVE (NEGATIVE) 09/24/17 17:10 Urine Methadone Screen NEGATIVE (NEGATIVE) 09/24/17 17:10 Acetaminophen < 10.0 ug/mL (10.0-30.0) L 09/24/17 17:24 Ur Barbiturates Screen NEGATIVE (NEGATIVE) 09/24/17 17:10 Ur Tricyclics Screen NEGATIVE (NEGATIVE) 09/24/17 17:10 Ur Phencyclidine Scrn NEGATIVE (NEGATIVE) 09/24/17 17:10 Amphetamines Screen NEGATIVE (NEGATIVE) 09/24/17 17:10 U Methamphetamines Scrn NEGATIVE (NEGATIVE) 09/24/17 17:10 U Benzodiazepines Scrn POSITIVE (NEGATIVE) H 09/24/17 17:10 U Cocaine Metab Screen NEGATIVE (NEGATIVE) 09/24/17 17:10 U Cannabinoids Screen NEGATIVE (NEGATIVE) 09/24/17 17:10 Ethyl Alcohol < 10 mg/dL (0-10) 09/24/17 17:24 RPR NONREACTIVE (NONREACTIVE) 09/24/17 17:24 - Physical Exam Vitals and I&O: Vital Signs Temp 98.9 F 09/29/17 06:42 Pulse 60 09/29/17 06:42 Resp 16 09/29/17 06:42 BP 147/74 09/29/17 06:42 Pulse Ox 96 09/29/17 06:42 Intake & Output 09/28/17 09/29/17 09/29/17 18:59 06:59 18:59 Intake Total 1200 120 Balance 1200 120 Intake: Oral 1200 120 Other: # Voids 1 # Bowel Movements 1 Active Medications: Current Medications Acetaminophen (Tylenol) 650 mg PO Q4HR PRN PRN Reason: Mild Pain / Temp above 100 Stop: 11/23/17 22:09 Last Admin: 09/28/17 22:02 Dose: 650 mg Al Hydrox/Mg Hydrox/Simethicone (Maalox) 30 ml PO Q4HR PRN PRN Reason: GI DISTRESS Stop: 11/23/17 22:09 Docusate Sodium (Colace) 100 mg PO BID STEFANY Stop: 11/24/17 08:59 Last Admin: 09/29/17 08:33 Dose: 100 mg Lorazepam (Ativan) 0.5 mg PO Q4HR PRN; Protocol PRN Reason: Anxiety Stop: 10/24/17 22:09 Last Admin: 09/29/17 06:16 Dose: 0.5 mg Magnesium Hydroxide (Milk Of Magnesia) 30 ml PO HS PRN PRN Reason: Constipation Multivitamins/Vitamin C (Theragran) 1 tab PO DAILY STEFANY Stop: 11/24/17 08:59 Last Admin: 09/29/17 08:33 Dose: 1 tab Quetiapine Fumarate (Seroquel) 25 mg PO BID STEFANY PRN Reason: Protocol Stop: 11/26/17 16:59 Last Admin: 09/29/17 08:33 Dose: 25 mg Zolpidem Tartrate (Ambien) 5 mg PO HS PRN PRN Reason: Insomnia Stop: 11/23/17 22:09 Last Admin: 09/28/17 22:02 Dose: 5 mg General: Alert, Other (Confused, not oriented) HEENT: Atraumatic Neck: Supple Cardiovascular: Regular rate Lungs: Clear to auscultation Abdomen: Bowel sounds Extremities: Other (No edema) Neurological: Other (Unstable gait) Skin: Other (Warm and dry) Psych/Mental Status: Other (Confused, not oriented) - Procedures Procedures: Procedures Procedure Code Date ABDOMINAL PROCTOPEXY 48.75 04/05/15 CORRECT RECTAL PROLAPSE 54939 04/05/15 OTHER GROUP THERAPY 94.44 04/13/15 Assessment/Plan - Problem List Patient Problems: All Active Problems Agitation (Acute) R45.1 Alzheimer's disease (Acute) G30.9 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 Dx Psychosis, Schizophrenia. - Plan Plan: Patient under Psychiatric care. Will continue with some SNF meds. Nutritional Asmnt/Malnutr-PDOC - Dietary Evaluation Malnutrition Findings (Please click <Entered> for more info): Nutritional Asmnt/Malnutrition Start: 09/27/17 16: 52 Text: Status: Complete Freq: Document 09/27/17 16:54 GSUN (Rec: 09/27/17 17:02 GSUN [email or web address]) Nutritional Asmnt/Malnutrition Patient General Information Nutritional Screening Moderate Risk Screening Diagnosis Psychosis NOS r/o schizoaffective disorder Pertinent Medical Hx/Surgical Hx Weakness, psychosis Subjective Information 72 year old female from SNF. Per nursing notes, pt is delusional. Spoke to pt in caty in rec room during meal time. Pt was talkative, a poor historian, off topic, did not provide much nutrition hx. Observed pt finished >75% of meal during visit without chew /swallowing difficulties noted . Pt apepared overweight, no muscle/fat wasting noted. Pt is edentulous on ground, stated has dentures but unable to state where, questionable. No nutritinoal concerns per nursing staff. Current Diet Order/ Nutrition Support [facility] soft ground Pertinent Medications Colace, MOM, Theragran, Seroquel Pertinent Labs 09/24: reviewed Nutritional Hx/Data Height 1.75 m Height (Calculated Centimeters) 175.3 Current Weight (lbs) 84.368 kg Weight (Calculated Kilograms) 84.4 Weight (Calculated Grams) 17065.2 [place] Body Weight 145 Recent Weight Change No Weight Status Overweight GI Symptoms Food Allergies No Usual diet at home [facility]: ground, regular Skin Integrity/Comment: Jonel 17. Current %PO Good (75-100%) Estimated Nutritional Goals Calories/Kcals/Kg IBW 145lb/65.9kg Kcals Calculated 1648-1977kcal (25-30kcal/kg) Protein Calculated 66g (1g/kg) Fluid: ml 1648-1977ml (1ml/kcal) Nutritional Problem 1. Problem Problem No nutritnioal problem at this time. Intervention/Recommendation Comments 1. Continue with current diet order. 2. Nursing staff to record %PO of every meal. Expected Outcomes/Goals Expected Outcomes/Goals 1. PO intake to meet at least 75% of estimated nutritinoal needs.
--- NOTE | 2017-09-30 03:30 | Progress Notes ---
DATE: 09/29/2017 SUBJECTIVE: Staff was spoken to. The patient is interviewed. Mood is irritable. Affect is constricted. Insight and judgment are noted to be still impaired. Impulse control seems to be poor. The patient is grossly psychotic. The patient has been stating that she has been too many babies coming out of her ribs and the patient is stating that I need to take her to the surgery. The patient's coping skills at this time are noted to be very poor. The patient is currently on 25 mg twice a day of the Seroquel and has been able to tolerate the medication. In view of her psychosis, it is decided to increase the dose on the Seroquel to 50 mg twice a day and follow the patient. ASSESSMENT: The patient is grossly psychotic. PLAN: To continue the patient with supportive therapy and followup. JOB# [id number]
[2017-09-30] MEDS: Multivitamin Tab PO SCH (08:12)
--- NOTE | 2017-09-30 09:15 | General Progress Note ---
Subjective - Review of Systems Service Date: 09/30/17 Subjective: I want go home Objective - Results Result Diagrams: 09/24/17 17:24 09/24/17 17:24 Recent Labs: Laboratory Last Values WBC 4.9 Th/cmm (4.8-10.8) D 09/24/17 17:24 RBC 4.01 Mil/cmm (3.80-5.20) 09/24/17 17:24 Hgb 13.3 gm/dL (12-16) D 09/24/17 17:24 Hct 39.1 % (41.0-60) L D 09/24/17 17:24 MCV 97.6 fl (81-100) 09/24/17 17:24 MCH 33.2 pg (27.0-31.0) H 09/24/17 17:24 MCHC Differential 34.0 pg (28.0-36.0) 09/24/17 17:24 RDW 13.9 % (11.5-20.0) 09/24/17 17:24 Plt Count 138 Th/cmm (150-400) L D 09/24/17 17:24 MPV 8.6 fl 09/24/17 17:24 Neutrophils % 40.6 % (40.0-80.0) 09/24/17 17:24 Lymphocytes % 48.5 % (20.0-50.0) 09/24/17 17:24 Monocytes % 7.4 % (2.0-10.0) 09/24/17 17:24 Eosinophils % 2.6 % (0.0-5.0) 09/24/17 17:24 Basophils % 0.9 % (0.0-2.0) 09/24/17 17:24 Sodium 135 mEq/L (136-145) L 09/24/17 17:24 Potassium 4.5 mEq/L (3.5-5.1) 09/24/17 17:24 Chloride 103 mEq/L (98-107) 09/24/17 17:24 Carbon Dioxide 31.1 mEq/L (21.0-31.0) H 09/24/17 17:24 Anion Gap 5.4 (7.0-16.0) L 09/24/17 17:24 BUN 29 mg/dL (7-25) H 09/24/17 17:24 Creatinine 0.8 mg/dL (0.6-1.2) 09/24/17 17:24 Est GFR ( Amer) > 60.0 ml/min (>90) 09/24/17 17:24 Est GFR (Non-Af Amer) > 60.0 ml/min 09/24/17 17:24 BUN/Creatinine Ratio 36.3 09/24/17 17:24 Glucose 94 mg/dL (70-105) 09/24/17 17:24 Hemoglobin A1c % 4.8 % (4.0-6.0) 09/24/17 17:24 Calcium 10.1 mg/dL (8.6-10.3) 09/24/17:24 Total Bilirubin 0.5 mg/dL (0.3-1.0) 09/24/17 17:24 AST 49 U/L (13-39) H 09/24/17 17:24 ALT 60 U/L (7-52) H 09/24/17 17:24 Alkaline Phosphatase 88 U/L (34-104) 09/24/17 17:24 Total Protein 7.1 gm/dL (6.0-8.3) 09/24/17 17:24 Albumin 3.6 gm/dL (3.7-5.3) L 09/24/17:24 Globulin 3.5 gm/dL 09/24/17 17:24 Albumin/Globulin Ratio 1.0 (1.0-1.8) 09/24/17 17:24 Triglycerides 77 mg/dL (<150) 09/24/17 17:24 Cholesterol 150 mg/dL (<200) 09/24/17 17:24 LDL Cholesterol Direct 80 mg/dL (75-193) 09/24/17 17:24 HDL Cholesterol 53 mg/dL (23-92) 09/24/17 17:24 TSH 0.65 uIU/ml (0.34-5.60) 09/24/17 17:24 Urine Source CLEAN C 09/24/17 17:10 Urine Color YELLOW 09/24/17 17:10 Urine Clarity CLEAR (CLEAR) 09/24/17 17:10 Urine pH 6.5 (4.6 - 8.0) 09/24/17 17:10 Ur Specific [place] 1.020 (1.005-1.030) 09/24/17 17:10 Urine Protein NEGATIVE mg/dL (NEGATIVE) 09/24/17 17:10 Urine Glucose (UA) NEGATIVE mg/dL (NEGATIVE) 09/24/17 17:10 Urine Ketones NEGATIVE mg/dL (NEGATIVE) 09/24/17 17:10 Urine Blood NEGATIVE (NEGATIVE) 09/24/17 17:10 Urine Nitrate NEGATIVE (NEGATIVE) 09/24/17 17:10 Urine Bilirubin NEGATIVE (NEGATIVE) 09/24/17 17:10 Urine Urobilinogen 0.2 E.U./dL (0.2 - 1.0) 09/24/17 17:10 Ur Leukocyte Esterase NEGATIVE (NEGATIVE) 09/24/17 17:10 Urine RBC NONE SEEN /hpf (0-5) 09/24/17 17:10 Urine WBC NONE SEEN /hpf (0-5) 09/24/17 17:10 Ur Epithelial Cells NONE SEEN /lpf (FEW) 09/24/17 17:10 Urine Bacteria NONE SEEN /hpf (NONE SEEN) 09/24/17 17:10 Salicylates < 25.0 mg/L (30.0-100.0) L 09/24/17 17:24 Urine Opiates Screen NEGATIVE (NEGATIVE) 09/24/17 17:10 Urine Methadone Screen NEGATIVE (NEGATIVE) 09/24/17 17:10 Acetaminophen < 10.0 ug/mL (10.0-30.0) L 09/24/17 17:24 Ur Barbiturates Screen NEGATIVE (NEGATIVE) 09/24/17 17:10 Ur Tricyclics Screen NEGATIVE (NEGATIVE) 09/24/17 17:10 Ur Phencyclidine Scrn NEGATIVE (NEGATIVE) 09/24/17 17:10 Amphetamines Screen NEGATIVE (NEGATIVE) 09/24/17 17:10 U Methamphetamines Scrn NEGATIVE (NEGATIVE) 09/24/17 17:10 U Benzodiazepines Scrn POSITIVE (NEGATIVE) H 09/24/17 17:10 U Cocaine Metab Screen NEGATIVE (NEGATIVE) 09/24/17 17:10 U Cannabinoids Screen NEGATIVE (NEGATIVE) 09/24/17 17:10 Ethyl Alcohol < 10 mg/dL (0-10) 09/24/17 17:24 RPR NONREACTIVE (NONREACTIVE) 09/24/17 17:24 - Physical Exam Vitals and I&O: Vital Signs Temp 98.3 F 09/30/17 06:15 Pulse 71 09/30/17 06:15 Resp 19 09/30/17 06:15 BP 140/71 09/30/17 06:15 Pulse Ox 94 09/30/17 06:15 Intake & Output 09/29/17 09/30/17 09/30/17 18:59 06:59 18:59 Intake Total 1200 360 Balance 1200 360 Intake: Oral 1200 360 Other: # Voids 2 # Bowel Movements 1 0 Active Medications: Current Medications Acetaminophen (Tylenol) 650 mg PO Q4HR PRN PRN Reason: Mild Pain / Temp above 100 Stop: 11/23/17 22:09 Last Admin: 09/30/17 06:54 Dose: 650 mg Al Hydrox/Mg Hydrox/Simethicone (Maalox) 30 ml PO Q4HR PRN PRN Reason: GI DISTRESS Stop: 11/23/17 22:09 Docusate Sodium (Colace) 100 mg PO BID STEFANY Stop: 11/24/17 08:59 Last Admin: 09/30/17 08:12 Dose: 100 mg Lorazepam (Ativan) 0.5 mg PO Q4HR PRN; Protocol PRN Reason: Anxiety Stop: 10/24/17 22:09 Last Admin: 09/29/17 06:16 Dose: 0.5 mg Magnesium Hydroxide (Milk Of Magnesia) 30 ml PO HS PRN PRN Reason: Constipation Multivitamins/Vitamin C (Theragran) 1 tab PO DAILY STEFANY Stop: 11/24/17 08:59 Last Admin: 09/30/17 08:12 Dose: 1 tab Quetiapine Fumarate (Seroquel) 50 mg PO BID STEFANY PRN Reason: Protocol Stop: 11/26/17 16:59 Last Admin: 09/30/17 08:12 Dose: 50 mg Zolpidem Tartrate (Ambien) 5 mg PO HS PRN PRN Reason: Insomnia Stop: 11/23/17 22:09 Last Admin: 09/29/17 21:47 Dose: 5 mg General: Alert, Other (Confused, not oriented) HEENT: Atraumatic Neck: Supple Cardiovascular: Regular rate Lungs: Clear to auscultation Abdomen: Bowel sounds Extremities: Other (No edema) Neurological: Other (Unstable gait) Skin: Other (Warm and dry) Psych/Mental Status: Other (Confused, not oriented) - Procedures Procedures: Procedures Procedure Code Date ABDOMINAL PROCTOPEXY 48.75 04/05/15 CORRECT RECTAL PROLAPSE 67985 04/05/15 OTHER GROUP THERAPY 94.44 04/13/15 Assessment/Plan - Problem List Patient Problems: All Active Problems Agitation (Acute) R45.1 Alzheimer's disease (Acute) G30.9 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 Dx Psychosis, Schizophrenia. - Plan Plan: Patient under Psychiatric care. Will continue with some SNF meds. Nutritional Asmnt/Malnutr-PDOC - Dietary Evaluation Malnutrition Findings (Please click <Entered> for more info): Nutritional Asmnt/Malnutrition Start: 09/27/17 16: 52 Text: Status: Complete Freq: Document 09/27/17 16:54 GSUN (Rec: 09/27/17 17:02 GSUN [facility]) Nutritional Asmnt/Malnutrition Patient General Information Nutritional Screening Moderate Risk Screening Diagnosis Psychosis NOS r/o schizoaffective disorder Pertinent Medical Hx/Surgical Hx Weakness, psychosis Subjective Information 72 year old female from SNF. Per nursing notes, pt is delusional. Spoke to pt in caty in rec room during meal time. Pt was talkative, a poor historian, off topic, did not provide much nutrition hx. Observed pt finished >75% of meal during visit without chew /swallowing difficulties noted . Pt apepared overweight, no muscle/fat wasting noted. Pt is edentulous on ground, stated has dentures but unable to state where, questionable. No nutritinoal concerns per nursing staff. Current Diet Order/ Nutrition Support [facility] soft ground Pertinent Medications Colace, MOM, Theragran, Seroquel Pertinent Labs 09/24: reviewed Nutritional Hx/Data Height 1.75 m Height (Calculated Centimeters) 175.3 Current Weight (lbs) 84.368 kg Weight (Calculated Kilograms) 84.4 Weight (Calculated Grams) 73934.2 [place] Body Weight 145 Recent Weight Change No Weight Status Overweight GI Symptoms Food Allergies No Usual diet at home [facility]: ground, regular Skin Integrity/Comment: Jonel 17. Current %PO Good (75-100%) Estimated Nutritional Goals Calories/Kcals/Kg IBW 145lb/65.9kg Kcals Calculated 1648-1977kcal (25-30kcal/kg) Protein Calculated 66g (1g/kg) Fluid: ml 1648-1977ml (1ml/kcal) Nutritional Problem 1. Problem Problem No nutritnioal problem at this time. Intervention/Recommendation Comments 1. Continue with current diet order. 2. Nursing staff to record %PO of every meal. Expected Outcomes/Goals Expected Outcomes/Goals 1. PO intake to meet at least 75% of estimated nutritinoal needs.
--- NOTE | 2017-09-30 20:43 | Progress Notes ---
DATE: 09/30/2017 SUBJECTIVE: Staff was spoken to. The patient is interviewed. Mood is noted to be irritable. Affect is constricted. The patient is still fixated on that baby is coming out of her home and I need to put her on the ____ for surgery. The patient has no insight into her illness. The patient is currently on Seroquel, but this seems to be not making any impact on the patient. ASSESSMENT: Hence it is decided to start the patient on haloperidol and the patient is going to be considered for Haldol Decanoate in view of her gross psychosis. JOB# [id number]
[2017-10-01] MEDS: Multivitamin Tab PO SCH (08:12)
--- NOTE | 2017-10-01 08:34 | General Progress Note ---
Subjective - Review of Systems Service Date: 10/01/17 Subjective: I want go home Objective - Results Result Diagrams: 09/24/17 17:24 09/24/17 17:24 Recent Labs: Laboratory Last Values WBC 4.9 Th/cmm (4.8-10.8) D 09/24/17 17:24 RBC 4.01 Mil/cmm (3.80-5.20) 09/24/17 17:24 Hgb 13.3 gm/dL (12-16) D 09/24/17 17:24 Hct 39.1 % (41.0-60) L D 09/24/17 17:24 MCV 97.6 fl (81-100) 09/24/17 17:24 MCH 33.2 pg (27.0-31.0) H 09/24/17 17:24 MCHC Differential 34.0 pg (28.0-36.0) 09/24/17 17:24 RDW 13.9 % (11.5-20.0) 09/24/17 17:24 Plt Count 138 Th/cmm (150-400) L D 09/24/17 17:24 MPV 8.6 fl 09/24/17 17:24 Neutrophils % 40.6 % (40.0-80.0) 09/24/17 17:24 Lymphocytes % 48.5 % (20.0-50.0) 09/24/17 17:24 Monocytes % 7.4 % (2.0-10.0) 09/24/17 17:24 Eosinophils % 2.6 % (0.0-5.0) 09/24/17 17:24 Basophils % 0.9 % (0.0-2.0) 09/24/17 17:24 Sodium 135 mEq/L (136-145) L 09/24/17 17:24 Potassium 4.5 mEq/L (3.5-5.1) 09/24/17 17:24 Chloride 103 mEq/L (98-107) 09/24/17 17:24 Carbon Dioxide 31.1 mEq/L (21.0-31.0) H 09/24/17 17:24 Anion Gap 5.4 (7.0-16.0) L 09/24/17 17:24 BUN 29 mg/dL (7-25) H 09/24/17 17:24 Creatinine 0.8 mg/dL (0.6-1.2) 09/24/17 17:24 Est GFR ( Amer) > 60.0 ml/min (>90) 09/24/17 17:24 Est GFR (Non-Af Amer) > 60.0 ml/min 09/24/17 17:24 BUN/Creatinine Ratio 36.3 09/24/17 17:24 Glucose 94 mg/dL (70-105) 09/24/17 17:24 Hemoglobin A1c % 4.8 % (4.0-6.0) 09/24/17 17:24 Calcium 10.1 mg/dL (8.6-10.3) 09/24/17:24 Total Bilirubin 0.5 mg/dL (0.3-1.0) 09/24/17 17:24 AST 49 U/L (13-39) H 09/24/17 17:24 ALT 60 U/L (7-52) H 09/24/17 17:24 Alkaline Phosphatase 88 U/L (34-104) 09/24/17 17:24 Total Protein 7.1 gm/dL (6.0-8.3) 09/24/17 17:24 Albumin 3.6 gm/dL (3.7-5.3) L 09/24/17:24 Globulin 3.5 gm/dL 09/24/17 17:24 Albumin/Globulin Ratio 1.0 (1.0-1.8) 09/24/17 17:24 Triglycerides 77 mg/dL (<150) 09/24/17 17:24 Cholesterol 150 mg/dL (<200) 09/24/17 17:24 LDL Cholesterol Direct 80 mg/dL (75-193) 09/24/17 17:24 HDL Cholesterol 53 mg/dL (23-92) 09/24/17 17:24 TSH 0.65 uIU/ml (0.34-5.60) 09/24/17 17:24 Urine Source CLEAN C 09/24/17 17:10 Urine Color YELLOW 09/24/17 17:10 Urine Clarity CLEAR (CLEAR) 09/24/17 17:10 Urine pH 6.5 (4.6 - 8.0) 09/24/17 17:10 Ur Specific [place] 1.020 (1.005-1.030) 09/24/17 17:10 Urine Protein NEGATIVE mg/dL (NEGATIVE) 09/24/17 17:10 Urine Glucose (UA) NEGATIVE mg/dL (NEGATIVE) 09/24/17 17:10 Urine Ketones NEGATIVE mg/dL (NEGATIVE) 09/24/17 17:10 Urine Blood NEGATIVE (NEGATIVE) 09/24/17 17:10 Urine Nitrate NEGATIVE (NEGATIVE) 09/24/17 17:10 Urine Bilirubin NEGATIVE (NEGATIVE) 09/24/17 17:10 Urine Urobilinogen 0.2 E.U./dL (0.2 - 1.0) 09/24/17 17:10 Ur Leukocyte Esterase NEGATIVE (NEGATIVE) 09/24/17 17:10 Urine RBC NONE SEEN /hpf (0-5) 09/24/17 17:10 Urine WBC NONE SEEN /hpf (0-5) 09/24/17 17:10 Ur Epithelial Cells NONE SEEN /lpf (FEW) 09/24/17 17:10 Urine Bacteria NONE SEEN /hpf (NONE SEEN) 09/24/17 17:10 Salicylates < 25.0 mg/L (30.0-100.0) L 09/24/17 17:24 Urine Opiates Screen NEGATIVE (NEGATIVE) 09/24/17 17:10 Urine Methadone Screen NEGATIVE (NEGATIVE) 09/24/17 17:10 Acetaminophen < 10.0 ug/mL (10.0-30.0) L 09/24/17 17:24 Ur Barbiturates Screen NEGATIVE (NEGATIVE) 09/24/17 17:10 Ur Tricyclics Screen NEGATIVE (NEGATIVE) 09/24/17 17:10 Ur Phencyclidine Scrn NEGATIVE (NEGATIVE) 09/24/17 17:10 Amphetamines Screen NEGATIVE (NEGATIVE) 09/24/17 17:10 U Methamphetamines Scrn NEGATIVE (NEGATIVE) 09/24/17 17:10 U Benzodiazepines Scrn POSITIVE (NEGATIVE) H 09/24/17 17:10 U Cocaine Metab Screen NEGATIVE (NEGATIVE) 09/24/17 17:10 U Cannabinoids Screen NEGATIVE (NEGATIVE) 09/24/17 17:10 Ethyl Alcohol < 10 mg/dL (0-10) 09/24/17 17:24 RPR NONREACTIVE (NONREACTIVE) 09/24/17 17:24 - Physical Exam Vitals and I&O: Vital Signs Temp 98.1 F 10/01/17 05:50 Pulse 80 10/01/17 05:50 Resp 19 10/01/17 05:50 BP 145/59 10/01/17 05:50 Pulse Ox 93 10/01/17 05:50 Intake & Output 09/30/17 10/01/17 10/01/17 18:59 06:59 18:59 Intake Total 360 Balance 360 Intake: Oral 360 Other: # Voids 2 # Bowel Movements 0 Active Medications: Current Medications Acetaminophen (Tylenol) 650 mg PO Q4HR PRN PRN Reason: Mild Pain / Temp above 100 Stop: 11/23/17 22:09 Last Admin: 09/30/17 22:00 Dose: 650 mg Al Hydrox/Mg Hydrox/Simethicone (Maalox) 30 ml PO Q4HR PRN PRN Reason: GI DISTRESS Stop: 11/23/17 22:09 Docusate Sodium (Colace) 100 mg PO BID STEFANY Stop: 11/24/17 08:59 Last Admin: 10/01/17 08:12 Dose: 100 mg Haloperidol (Haldol) 2 mg PO BID STEFANY PRN Reason: Protocol Stop: 11/29/17 16:59 Last Admin: 10/01/17 08:12 Dose: 2 mg Lorazepam (Ativan) 0.5 mg PO Q4HR PRN; Protocol PRN Reason: Anxiety Stop: 10/24/17 22:09 Last Admin: 10/01/17 05:25 Dose: 0.5 mg Magnesium Hydroxide (Milk Of Magnesia) 30 ml PO HS PRN PRN Reason: Constipation Multivitamins/Vitamin C (Theragran) 1 tab PO DAILY STEFANY Stop: 11/24/17 08:59 Last Admin: 10/01/17 08:12 Dose: 1 tab Quetiapine Fumarate (Seroquel) 50 mg PO BID STEFANY PRN Reason: Protocol Stop: 11/26/17 16:59 Last Admin: 10/01/17 08:12 Dose: 50 mg Zolpidem Tartrate (Ambien) 5 mg PO HS PRN PRN Reason: Insomnia Stop: 11/23/17 22:09 Last Admin: 09/30/17 20:39 Dose: 5 mg General: Alert, Other (Confused, not oriented) HEENT: Atraumatic Neck: Supple Cardiovascular: Regular rate Lungs: Clear to auscultation Abdomen: Bowel sounds Extremities: Other (No edema) Neurological: Other (Unstable gait) Skin: Other (Warm and dry) Psych/Mental Status: Other (Confused, not oriented) - Procedures Procedures: Procedures Procedure Code Date ABDOMINAL PROCTOPEXY 48.75 04/05/15 CORRECT RECTAL PROLAPSE 47833 04/05/15 OTHER GROUP THERAPY 94.44 04/13/15 Assessment/Plan - Problem List Patient Problems: All Active Problems Agitation (Acute) R45.1 Alzheimer's disease (Acute) G30.9 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 Dx Psychosis, Schizophrenia. - Plan Plan: Patient under Psychiatric care. Will continue with some SNF meds. Nutritional Asmnt/Malnutr-PDOC - Dietary Evaluation Malnutrition Findings (Please click <Entered> for more info): Nutritional Asmnt/Malnutrition Start: 09/27/17 16: 52 Text: Status: Complete Freq: Document 09/27/17 16:54 GSUN (Rec: 09/27/17 17:02 GSUN [email or web address]) Nutritional Asmnt/Malnutrition Patient General Information Nutritional Screening Moderate Risk Screening Diagnosis Psychosis NOS r/o schizoaffective disorder Pertinent Medical Hx/Surgical Hx Weakness, psychosis Subjective Information 72 year old female from SNF. Per nursing notes, pt is delusional. Spoke to pt in caty in rec room during meal time. Pt was talkative, a poor historian, off topic, did not provide much nutrition hx. Observed pt finished >75% of meal during visit without chew /swallowing difficulties noted . Pt apepared overweight, no muscle/fat wasting noted. Pt is edentulous on ground, stated has dentures but unable to state where, questionable. No nutritinoal concerns per nursing staff. Current Diet Order/ Nutrition Support [facility] soft ground Pertinent Medications Colace, MOM, Theragran, Seroquel Pertinent Labs 09/24: reviewed Nutritional Hx/Data Height 1.75 m Height (Calculated Centimeters) 175.3 Current Weight (lbs) 84.368 kg Weight (Calculated Kilograms) 84.4 Weight (Calculated Grams) 67114.2 [place] Body Weight 145 Recent Weight Change No Weight Status Overweight GI Symptoms Food Allergies No Usual diet at home [facility]: ground, regular Skin Integrity/Comment: Jonel 17. Current %PO Good (75-100%) Estimated Nutritional Goals Calories/Kcals/Kg IBW 145lb/65.9kg Kcals Calculated 1648-1977kcal (25-30kcal/kg) Protein Calculated 66g (1g/kg) Fluid: ml 1648-1977ml (1ml/kcal) Nutritional Problem 1. Problem Problem No nutritnioal problem at this time. Intervention/Recommendation Comments 1. Continue with current diet order. 2. Nursing staff to record %PO of every meal. Expected Outcomes/Goals Expected Outcomes/Goals 1. PO intake to meet at least 75% of estimated nutritinoal needs.
--- NOTE | 2017-10-01 16:51 | Progress Notes ---
DATE: 10/01/2017 SUBJECTIVE: Staff was spoken to. The patient is interviewed. Mood is noted to be irritable. Affect is constricted. The patient's insight and judgment are noted to be still impaired. Impulse control is noted to be poor. The patient is currently on Seroquel and then haloperidol, but even with these two medications, the patient is still having the difficult time to comply with the unit rules and the patient is not able to make much sense. ASSESSMENT: The patient is still grossly psychotic. In view of gross psychosis, it is decided to start the patient with 25 mg of Haldol Decanoate for psychosis and then slowly taper the Seroquel off. The patient is still grossly psychotic and is talking about the babies coming out of her womb, I need to do surgery to get them out faster. The patient is not making much sense. PLAN: To proceed with the Haldol Decanoate and then follow the patient up. JOB# [id number]
[2017-10-02] MEDS: Multivitamin Tab PO SCH (08:46)
--- NOTE | 2017-10-02 09:11 | General Progress Note ---
Subjective - Review of Systems Service Date: 10/02/17 Subjective: I want go home Objective - Results Result Diagrams: 09/24/17 17:24 09/24/17 17:24 Recent Labs: Laboratory Last Values WBC 4.9 Th/cmm (4.8-10.8) D 09/24/17 17:24 RBC 4.01 Mil/cmm (3.80-5.20) 09/24/17 17:24 Hgb 13.3 gm/dL (12-16) D 09/24/17 17:24 Hct 39.1 % (41.0-60) L D 09/24/17 17:24 MCV 97.6 fl (81-100) 09/24/17 17:24 MCH 33.2 pg (27.0-31.0) H 09/24/17 17:24 MCHC Differential 34.0 pg (28.0-36.0) 09/24/17 17:24 RDW 13.9 % (11.5-20.0) 09/24/17 17:24 Plt Count 138 Th/cmm (150-400) L D 09/24/17 17:24 MPV 8.6 fl 09/24/17 17:24 Neutrophils % 40.6 % (40.0-80.0) 09/24/17 17:24 Lymphocytes % 48.5 % (20.0-50.0) 09/24/17 17:24 Monocytes % 7.4 % (2.0-10.0) 09/24/17 17:24 Eosinophils % 2.6 % (0.0-5.0) 09/24/17 17:24 Basophils % 0.9 % (0.0-2.0) 09/24/17 17:24 Sodium 135 mEq/L (136-145) L 09/24/17 17:24 Potassium 4.5 mEq/L (3.5-5.1) 09/24/17 17:24 Chloride 103 mEq/L (98-107) 09/24/17 17:24 Carbon Dioxide 31.1 mEq/L (21.0-31.0) H 09/24/17 17:24 Anion Gap 5.4 (7.0-16.0) L 09/24/17 17:24 BUN 29 mg/dL (7-25) H 09/24/17 17:24 Creatinine 0.8 mg/dL (0.6-1.2) 09/24/17 17:24 Est GFR ( Amer) > 60.0 ml/min (>90) 09/24/17 17:24 Est GFR (Non-Af Amer) > 60.0 ml/min 09/24/17 17:24 BUN/Creatinine Ratio 36.3 09/24/17 17:24 Glucose 94 mg/dL (70-105) 09/24/17 17:24 Hemoglobin A1c % 4.8 % (4.0-6.0) 09/24/17 17:24 Calcium 10.1 mg/dL (8.6-10.3) 09/24/17:24 Total Bilirubin 0.5 mg/dL (0.3-1.0) 09/24/17 17:24 AST 49 U/L (13-39) H 09/24/17 17:24 ALT 60 U/L (7-52) H 09/24/17 17:24 Alkaline Phosphatase 88 U/L (34-104) 09/24/17 17:24 Total Protein 7.1 gm/dL (6.0-8.3) 09/24/17 17:24 Albumin 3.6 gm/dL (3.7-5.3) L 09/24/17:24 Globulin 3.5 gm/dL 09/24/17 17:24 Albumin/Globulin Ratio 1.0 (1.0-1.8) 09/24/17 17:24 Triglycerides 77 mg/dL (<150) 09/24/17 17:24 Cholesterol 150 mg/dL (<200) 09/24/17 17:24 LDL Cholesterol Direct 80 mg/dL (75-193) 09/24/17 17:24 HDL Cholesterol 53 mg/dL (23-92) 09/24/17 17:24 TSH 0.65 uIU/ml (0.34-5.60) 09/24/17 17:24 Urine Source CLEAN C 09/24/17 17:10 Urine Color YELLOW 09/24/17 17:10 Urine Clarity CLEAR (CLEAR) 09/24/17 17:10 Urine pH 6.5 (4.6 - 8.0) 09/24/17 17:10 Ur Specific [place] 1.020 (1.005-1.030) 09/24/17 17:10 Urine Protein NEGATIVE mg/dL (NEGATIVE) 09/24/17 17:10 Urine Glucose (UA) NEGATIVE mg/dL (NEGATIVE) 09/24/17 17:10 Urine Ketones NEGATIVE mg/dL (NEGATIVE) 09/24/17 17:10 Urine Blood NEGATIVE (NEGATIVE) 09/24/17 17:10 Urine Nitrate NEGATIVE (NEGATIVE) 09/24/17 17:10 Urine Bilirubin NEGATIVE (NEGATIVE) 09/24/17 17:10 Urine Urobilinogen 0.2 E.U./dL (0.2 - 1.0) 09/24/17 17:10 Ur Leukocyte Esterase NEGATIVE (NEGATIVE) 09/24/17 17:10 Urine RBC NONE SEEN /hpf (0-5) 09/24/17 17:10 Urine WBC NONE SEEN /hpf (0-5) 09/24/17 17:10 Ur Epithelial Cells NONE SEEN /lpf (FEW) 09/24/17 17:10 Urine Bacteria NONE SEEN /hpf (NONE SEEN) 09/24/17 17:10 Salicylates < 25.0 mg/L (30.0-100.0) L 09/24/17 17:24 Urine Opiates Screen NEGATIVE (NEGATIVE) 09/24/17 17:10 Urine Methadone Screen NEGATIVE (NEGATIVE) 09/24/17 17:10 Acetaminophen < 10.0 ug/mL (10.0-30.0) L 09/24/17 17:24 Ur Barbiturates Screen NEGATIVE (NEGATIVE) 09/24/17 17:10 Ur Tricyclics Screen NEGATIVE (NEGATIVE) 09/24/17 17:10 Ur Phencyclidine Scrn NEGATIVE (NEGATIVE) 09/24/17 17:10 Amphetamines Screen NEGATIVE (NEGATIVE) 09/24/17 17:10 U Methamphetamines Scrn NEGATIVE (NEGATIVE) 09/24/17 17:10 U Benzodiazepines Scrn POSITIVE (NEGATIVE) H 09/24/17 17:10 U Cocaine Metab Screen NEGATIVE (NEGATIVE) 09/24/17 17:10 U Cannabinoids Screen NEGATIVE (NEGATIVE) 09/24/17 17:10 Ethyl Alcohol < 10 mg/dL (0-10) 09/24/17 17:24 RPR NONREACTIVE (NONREACTIVE) 09/24/17 17:24 - Physical Exam Vitals and I&O: Vital Signs Temp 97.5 F 10/02/17 06:00 Pulse 72 10/02/17 06:00 Resp 18 10/02/17 06:00 BP 148/97 10/02/17 06:00 Pulse Ox 99 10/02/17 06:00 Active Medications: Current Medications Acetaminophen (Tylenol) 650 mg PO Q4HR PRN PRN Reason: Mild Pain / Temp above 100 Stop: 11/23/17 22:09 Last Admin: 10/01/17 23:38 Dose: 650 mg Al Hydrox/Mg Hydrox/Simethicone (Maalox) 30 ml PO Q4HR PRN PRN Reason: GI DISTRESS Stop: 11/23/17 22:09 Last Admin: 10/02/17 03:07 Dose: 30 ml Docusate Sodium (Colace) 100 mg PO BID STEFANY Stop: 11/24/17 08:59 Last Admin: 10/02/17 08:46 Dose: 100 mg Haloperidol (Haldol) 2 mg PO BID STEFANY PRN Reason: Protocol Stop: 11/29/17 16:59 Last Admin: 10/02/17 08:47 Dose: 2 mg Haloperidol Decanoate (Haldol Dec) 25 mg IM QMONTH STEFANY PRN Reason: Protocol Stop: 11/30/17 11:59 Last Admin: 10/01/17 12:42 Dose: 25 mg Lorazepam (Ativan) 0.5 mg PO Q4HR PRN; Protocol PRN Reason: Anxiety Stop: 10/24/17 22:09 Last Admin: 10/02/17 03:07 Dose: 0.5 mg Magnesium Hydroxide (Milk Of Magnesia) 30 ml PO HS PRN PRN Reason: Constipation Multivitamins/Vitamin C (Theragran) 1 tab PO DAILY STEFANY Stop: 11/24/17 08:59 Last Admin: 10/02/17 08:46 Dose: 1 tab Quetiapine Fumarate (Seroquel) 50 mg PO BID STEFANY PRN Reason: Protocol Stop: 11/26/17 16:59 Last Admin: 10/02/17 08:46 Dose: 50 mg Zolpidem Tartrate (Ambien) 5 mg PO HS PRN PRN Reason: Insomnia Stop: 11/23/17 22:09 Last Admin: 10/01/17 23:08 Dose: 5 mg General: Alert, Other (Confused, not oriented) HEENT: Atraumatic Neck: Supple Cardiovascular: Regular rate Lungs: Clear to auscultation Abdomen: Bowel sounds Extremities: Other (No edema) Neurological: Other (Unstable gait) Skin: Other (Warm and dry) Psych/Mental Status: Other (Confused, not oriented) - Procedures Procedures: Procedures Procedure Code Date ABDOMINAL PROCTOPEXY 48.75 04/05/15 CORRECT RECTAL PROLAPSE 94372 04/05/15 OTHER GROUP THERAPY 94.44 04/13/15 Assessment/Plan - Problem List Patient Problems: All Active Problems Agitation (Acute) R45.1 Alzheimer's disease (Acute) G30.9 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 Dx Psychosis, Schizophrenia. - Plan Plan: Patient under Psychiatric care. Will continue with some SNF meds. Nutritional Asmnt/Malnutr-PDOC - Dietary Evaluation Malnutrition Findings (Please click <Entered> for more info): Nutritional Asmnt/Malnutrition Start: 09/27/17 16: 52 Text: Status: Complete Freq: Document 09/27/17 16:54 GSUN (Rec: 09/27/17 17:02 [email or web address]) Nutritional Asmnt/Malnutrition Patient General Information Nutritional Screening Moderate Risk Screening Diagnosis Psychosis NOS r/o schizoaffective disorder Pertinent Medical Hx/Surgical Hx Weakness, psychosis Subjective Information 72 year old female from SNF. Per nursing notes, pt is delusional. Spoke [facility] in [facility] room during meal time. Pt was talkative, a poor historian, off topic, did not provide much nutrition hx. Observed pt finished >75% of meal during visit without chew /swallowing difficulties noted . Pt apepared overweight, no muscle/fat wasting noted. Pt is edentulous on ground, stated has dentures but unable to state where, questionable. No nutritinoal concerns per nursing staff. Current Diet Order/ Nutrition Support [facility] soft ground Pertinent Medications Colace, MOM, Theragran, Seroquel Pertinent Labs 09/24: reviewed Nutritional Hx/Data Height 1.75 m Height (Calculated Centimeters) 175.3 Current Weight (lbs) 84.368 kg Weight (Calculated Kilograms) 84.4 Weight (Calculated Grams) 99694.2 [place] Body Weight 145 Recent Weight Change No Weight Status Overweight GI Symptoms Food Allergies No Usual diet at home [facility]: ground, regular Skin Integrity/Comment: Jonel 17. Current %PO Good (75-100%) Estimated Nutritional Goals Calories/Kcals/Kg IBW 145lb/65.9kg Kcals Calculated 1648-1977kcal (25-30kcal/kg) Protein Calculated 66g (1g/kg) Fluid: ml 1648-1977ml (1ml/kcal) Nutritional Problem 1. Problem Problem No nutritnioal problem at this time. Intervention/Recommendation Comments 1. Continue with current diet order. 2. Nursing staff to record %PO of every meal. Expected Outcomes/Goals Expected Outcomes/Goals 1. PO intake to meet at least 75% of estimated nutritinoal needs.
[2017-10-02] MEDS ORDERED: Haloperidol Lactate 5 mg/mL 1mL Vial ONE (14:47)
[2017-10-02] MEDS ORDERED: Haloperidol Lactate 5 mg/mL 1mL Vial IM ONE (15:00)
--- NOTE | 2017-10-03 01:31 | Progress Notes ---
DATE: 10/02/2017 PSYCHIATRIC PROGRESS NOTE SUBJECTIVE: Staff was spoken to. The patient is reporting that she needs to go to the social security office because she needs to collect her social security check. Coping skills are noted to be extremely poor at this time. The patient is still preoccupied with the and she is stating that she is going to be having too many babies and I need to take her to the hospital. ASSESSMENT: The patient is still grossly psychotic. PLAN: To continue the patient with Seroquel. The patient is getting 50 mg b.i.d. of the Seroquel at this time. Plan to continue the patient with supportive therapy. The patient is also started with haloperidol 2 mg twice a day and Haldol Decanoate and has been given 25 mg IM. The patient's Seroquel is going to be changed to only 50 mg at bedtime and patient is going to be continued on the Haldol. JOB# [id number]
[2017-10-03] MEDS: Multivitamin Tab PO SCH (08:57)
--- NOTE | 2017-10-03 10:33 | General Progress Note ---
Subjective - Review of Systems Service Date: 10/03/17 Subjective: I want go home Objective - Results Result Diagrams: 09/24/17 17:24 09/24/17 17:24 Recent Labs: Laboratory Last Values WBC 4.9 Th/cmm (4.8-10.8) D 09/24/17 17:24 RBC 4.01 Mil/cmm (3.80-5.20) 09/24/17 17:24 Hgb 13.3 gm/dL (12-16) D 09/24/17 17:24 Hct 39.1 % (41.0-60) L D 09/24/17 17:24 MCV 97.6 fl (81-100) 09/24/17 17:24 MCH 33.2 pg (27.0-31.0) H 09/24/17 17:24 MCHC Differential 34.0 pg (28.0-36.0) 09/24/17 17:24 RDW 13.9 % (11.5-20.0) 09/24/17 17:24 Plt Count 138 Th/cmm (150-400) L D 09/24/17 17:24 MPV 8.6 fl 09/24/17 17:24 Neutrophils % 40.6 % (40.0-80.0) 09/24/17 17:24 Lymphocytes % 48.5 % (20.0-50.0) 09/24/17 17:24 Monocytes % 7.4 % (2.0-10.0) 09/24/17 17:24 Eosinophils % 2.6 % (0.0-5.0) 09/24/17 17:24 Basophils % 0.9 % (0.0-2.0) 09/24/17 17:24 Sodium 135 mEq/L (136-145) L 09/24/17 17:24 Potassium 4.5 mEq/L (3.5-5.1) 09/24/17 17:24 Chloride 103 mEq/L (98-107) 09/24/17 17:24 Carbon Dioxide 31.1 mEq/L (21.0-31.0) H 09/24/17 17:24 Anion Gap 5.4 (7.0-16.0) L 09/24/17 17:24 BUN 29 mg/dL (7-25) H 09/24/17 17:24 Creatinine 0.8 mg/dL (0.6-1.2) 09/24/17 17:24 Est GFR ( Amer) > 60.0 ml/min (>90) 09/24/17 17:24 Est GFR (Non-Af Amer) > 60.0 ml/min 09/24/17 17:24 BUN/Creatinine Ratio 36.3 09/24/17 17:24 Glucose 94 mg/dL (70-105) 09/24/17 17:24 Hemoglobin A1c % 4.8 % (4.0-6.0) 09/24/17 17:24 Calcium 10.1 mg/dL (8.6-10.3) 09/24/17:24 Total Bilirubin 0.5 mg/dL (0.3-1.0) 09/24/17 17:24 AST 49 U/L (13-39) H 09/24/17 17:24 ALT 60 U/L (7-52) H 09/24/17 17:24 Alkaline Phosphatase 88 U/L (34-104) 09/24/17 17:24 Total Protein 7.1 gm/dL (6.0-8.3) 09/24/17 17:24 Albumin 3.6 gm/dL (3.7-5.3) L 09/24/17:24 Globulin 3.5 gm/dL 09/24/17 17:24 Albumin/Globulin Ratio 1.0 (1.0-1.8) 09/24/17 17:24 Triglycerides 77 mg/dL (<150) 09/24/17 17:24 Cholesterol 150 mg/dL (<200) 09/24/17 17:24 LDL Cholesterol Direct 80 mg/dL (75-193) 09/24/17 17:24 HDL Cholesterol 53 mg/dL (23-92) 09/24/17 17:24 TSH 0.65 uIU/ml (0.34-5.60) 09/24/17 17:24 Urine Source CLEAN C 09/24/17 17:10 Urine Color YELLOW 09/24/17 17:10 Urine Clarity CLEAR (CLEAR) 09/24/17 17:10 Urine pH 6.5 (4.6 - 8.0) 09/24/17 17:10 Ur Specific [place] 1.020 (1.005-1.030) 09/24/17 17:10 Urine Protein NEGATIVE mg/dL (NEGATIVE) 09/24/17 17:10 Urine Glucose (UA) NEGATIVE mg/dL (NEGATIVE) 09/24/17 17:10 Urine Ketones NEGATIVE mg/dL (NEGATIVE) 09/24/17 17:10 Urine Blood NEGATIVE (NEGATIVE) 09/24/17 17:10 Urine Nitrate NEGATIVE (NEGATIVE) 09/24/17 17:10 Urine Bilirubin NEGATIVE (NEGATIVE) 09/24/17 17:10 Urine Urobilinogen 0.2 E.U./dL (0.2 - 1.0) 09/24/17 17:10 Ur Leukocyte Esterase NEGATIVE (NEGATIVE) 09/24/17 17:10 Urine RBC NONE SEEN /hpf (0-5) 09/24/17 17:10 Urine WBC NONE SEEN /hpf (0-5) 09/24/17 17:10 Ur Epithelial Cells NONE SEEN /lpf (FEW) 09/24/17 17:10 Urine Bacteria NONE SEEN /hpf (NONE SEEN) 09/24/17 17:10 Salicylates < 25.0 mg/L (30.0-100.0) L 09/24/17 17:24 Urine Opiates Screen NEGATIVE (NEGATIVE) 09/24/17 17:10 Urine Methadone Screen NEGATIVE (NEGATIVE) 09/24/17 17:10 Acetaminophen < 10.0 ug/mL (10.0-30.0) L 09/24/17 17:24 Ur Barbiturates Screen NEGATIVE (NEGATIVE) 09/24/17 17:10 Ur Tricyclics Screen NEGATIVE (NEGATIVE) 09/24/17 17:10 Ur Phencyclidine Scrn NEGATIVE (NEGATIVE) 09/24/17 17:10 Amphetamines Screen NEGATIVE (NEGATIVE) 09/24/17 17:10 U Methamphetamines Scrn NEGATIVE (NEGATIVE) 09/24/17 17:10 U Benzodiazepines Scrn POSITIVE (NEGATIVE) H 09/24/17 17:10 U Cocaine Metab Screen NEGATIVE (NEGATIVE) 09/24/17 17:10 U Cannabinoids Screen NEGATIVE (NEGATIVE) 09/24/17 17:10 Ethyl Alcohol < 10 mg/dL (0-10) 09/24/17 17:24 RPR NONREACTIVE (NONREACTIVE) 09/24/17 17:24 - Physical Exam Vitals and I&O: Vital Signs Temp 97.8 F 10/02/17 20:00 Pulse 71 10/02/17 20:00 Resp 19 10/02/17 20:00 BP 134/83 10/02/17 20:00 Pulse Ox 99 10/02/17 20:00 Intake & Output 10/02/17 10/03/17 10/03/17 18:59 06:59 18:59 Intake Total 1200 120 Balance 1200 120 Intake: Oral 1200 120 Other: # Voids 3 # Bowel Movements 1 Active Medications: Current Medications Acetaminophen (Tylenol) 650 mg PO Q4HR PRN PRN Reason: Mild Pain / Temp above 100 Stop: 11/23/17 22:09 Last Admin: 10/01/17 23:38 Dose: 650 mg Al Hydrox/Mg Hydrox/Simethicone (Maalox) 30 ml PO Q4HR PRN PRN Reason: GI DISTRESS Stop: 11/23/17 22:09 Last Admin: 10/02/17 03:07 Dose: 30 ml Docusate Sodium (Colace) 100 mg PO BID STEFANY Stop: 11/24/17 08:59 Last Admin: 10/03/17 08:57 Dose: 100 mg Haloperidol (Haldol) 2 mg PO BID STEFANY PRN Reason: Protocol Stop: 11/29/17 16:59 Last Admin: 10/03/17 08:57 Dose: 2 mg Haloperidol Decanoate (Haldol Dec) 25 mg IM QMONTH STEFANY PRN Reason: Protocol Stop: 11/30/17 11:59 Last Admin: 10/01/17 12:42 Dose: 25 mg Lorazepam (Ativan) 0.5 mg PO Q4HR PRN; Protocol PRN Reason: Anxiety Stop: 10/24/17 22:09 Last Admin: 10/03/17 08:57 Dose: 0.5 mg Magnesium Hydroxide (Milk Of Magnesia) 30 ml PO HS PRN PRN Reason: Constipation Multivitamins/Vitamin C (Theragran) 1 tab PO DAILY STEFANY Stop: 11/24/17 08:59 Last Admin: 10/03/17 08:57 Dose: 1 tab Quetiapine Fumarate (Seroquel) 50 mg PO HS STEFANY Stop: 12/01/17 20:59 Last Admin: 10/02/17 21:16 Dose: 50 mg Zolpidem Tartrate (Ambien) 5 mg PO HS PRN PRN Reason: Insomnia Stop: 11/23/17 22:09 Last Admin: 10/02/17 21:16 Dose: 5 mg General: Alert, Other (Confused, not oriented) HEENT: Atraumatic Neck: Supple Cardiovascular: Regular rate Lungs: Clear to auscultation Abdomen: Bowel sounds Extremities: Other (No edema) Neurological: Other (Unstable gait) Skin: Other (Warm and dry) Psych/Mental Status: Other (Confused, not oriented) - Procedures Procedures: Procedures Procedure Code Date ABDOMINAL PROCTOPEXY 48.75 04/05/15 CORRECT RECTAL PROLAPSE 27817 04/05/15 OTHER GROUP THERAPY 94.44 04/13/15 Assessment/Plan - Problem List Patient Problems: All Active Problems Agitation (Acute) R45.1 Alzheimer's disease (Acute) G30.9 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 Dx Psychosis, Schizophrenia. - Plan Plan: Patient under Psychiatric care. Will continue with some SNF meds. Nutritional Asmnt/Malnutr-PDOC - Dietary Evaluation Malnutrition Findings (Please click <Entered> for more info): Nutritional Asmnt/Malnutrition Start: 09/27/17 16: 52 Text: Status: Complete Freq: Document 09/27/17 16:54 GSUN (Rec: 09/27/17 17:02 [email or web address] [email or web address]) Nutritional Asmnt/Malnutrition Patient General Information Nutritional Screening Moderate Risk Screening Diagnosis Psychosis NOS r/o schizoaffective disorder Pertinent Medical Hx/Surgical Hx Weakness, psychosis Subjective Information 72 year old female from SNF. Per nursing notes, pt is delusional. Spoke to pt in [place] in rec room during meal time. Pt was talkative, a poor historian, off topic, did not provide much nutrition hx. Observed pt finished >75% of meal during visit without chew /swallowing difficulties noted . Pt apepared overweight, no muscle/fat wasting noted. Pt is edentulous on ground, stated has dentures but unable to state where, questionable. No nutritinoal concerns per nursing staff. Current Diet Order/ Nutrition Support [facility] soft ground Pertinent Medications Colace, MOM, Theragran, Seroquel Pertinent Labs 09/24: reviewed Nutritional Hx/Data Height 1.75 m Height (Calculated Centimeters) 175.3 Current Weight (lbs) 84.368 kg Weight (Calculated Kilograms) 84.4 Weight (Calculated Grams) 09473.2 [place] Body Weight 145 Recent Weight Change No Weight Status Overweight GI Symptoms Food Allergies No Usual diet at home [facility] SNF: ground, regular Skin Integrity/Comment: Jonel 17. Current %PO Good (75-100%) Estimated Nutritional Goals Calories/Kcals/Kg IBW 145lb/65.9kg Kcals Calculated 1648-1977kcal (25-30kcal/kg) Protein Calculated 66g (1g/kg) Fluid: ml 1648-1977ml (1ml/kcal) Nutritional Problem 1. Problem Problem No nutritnioal problem at this time. Intervention/Recommendation Comments 1. Continue with current diet order. 2. Nursing staff to record %PO of every meal. Expected Outcomes/Goals Expected Outcomes/Goals 1. PO intake to meet at least 75% of estimated nutritinoal needs.
--- NOTE | 2017-10-03 23:12 | Progress Notes ---
DATE: 10/03/2017 SUBJECTIVE: Staff was spoken to. The patient is interviewed. Mood is noted to be irritable. Affect is constricted. Coping skills at this time are noted to be still poor. The patient has paranoid delusions. The patient wants me to take her to the bank to withdraw her money for the social security. The patient has no insight. The patient is also talking about baby is coming out of her ribs. ASSESSMENT: The patient is still grossly psychotic. PLAN: To continue the patient with Haldol and slowly decrease the dose on the Seroquel and followup. JOB# [id number]
[2017-10-04] MEDS: Multivitamin Tab PO SCH (08:08)
--- NOTE | 2017-10-04 08:45 | General Progress Note ---
Subjective - Review of Systems Service Date: 10/04/17 Subjective: I want go home Objective - Results Result Diagrams: 09/24/17 17:24 09/24/17 17:24 Recent Labs: Laboratory Last Values WBC 4.9 Th/cmm (4.8-10.8) D 09/24/17 17:24 RBC 4.01 Mil/cmm (3.80-5.20) 09/24/17 17:24 Hgb 13.3 gm/dL (12-16) D 09/24/17 17:24 Hct 39.1 % (41.0-60) L D 09/24/17 17:24 MCV 97.6 fl (81-100) 09/24/17 17:24 MCH 33.2 pg (27.0-31.0) H 09/24/17 17:24 MCHC Differential 34.0 pg (28.0-36.0) 09/24/17 17:24 RDW 13.9 % (11.5-20.0) 09/24/17 17:24 Plt Count 138 Th/cmm (150-400) L D 09/24/17 17:24 MPV 8.6 fl 09/24/17 17:24 Neutrophils % 40.6 % (40.0-80.0) 09/24/17 17:24 Lymphocytes % 48.5 % (20.0-50.0) 09/24/17 17:24 Monocytes % 7.4 % (2.0-10.0) 09/24/17 17:24 Eosinophils % 2.6 % (0.0-5.0) 09/24/17 17:24 Basophils % 0.9 % (0.0-2.0) 09/24/17 17:24 Sodium 135 mEq/L (136-145) L 09/24/17 17:24 Potassium 4.5 mEq/L (3.5-5.1) 09/24/17 17:24 Chloride 103 mEq/L (98-107) 09/24/17 17:24 Carbon Dioxide 31.1 mEq/L (21.0-31.0) H 09/24/17 17:24 Anion Gap 5.4 (7.0-16.0) L 09/24/17 17:24 BUN 29 mg/dL (7-25) H 09/24/17 17:24 Creatinine 0.8 mg/dL (0.6-1.2) 09/24/17 17:24 Est GFR ( Amer) > 60.0 ml/min (>90) 09/24/17 17:24 Est GFR (Non-Af Amer) > 60.0 ml/min 09/24/17 17:24 BUN/Creatinine Ratio 36.3 09/24/17 17:24 Glucose 94 mg/dL (70-105) 09/24/17 17:24 Hemoglobin A1c % 4.8 % (4.0-6.0) 09/24/17 17:24 Calcium 10.1 mg/dL (8.6-10.3) 09/24/17:24 Total Bilirubin 0.5 mg/dL (0.3-1.0) 09/24/17 17:24 AST 49 U/L (13-39) H 09/24/17 17:24 ALT 60 U/L (7-52) H 09/24/17 17:24 Alkaline Phosphatase 88 U/L (34-104) 09/24/17 17:24 Total Protein 7.1 gm/dL (6.0-8.3) 09/24/17 17:24 Albumin 3.6 gm/dL (3.7-5.3) L 09/24/17:24 Globulin 3.5 gm/dL 09/24/17 17:24 Albumin/Globulin Ratio 1.0 (1.0-1.8) 09/24/17 17:24 Triglycerides 77 mg/dL (<150) 09/24/17 17:24 Cholesterol 150 mg/dL (<200) 09/24/17 17:24 LDL Cholesterol Direct 80 mg/dL (75-193) 09/24/17 17:24 HDL Cholesterol 53 mg/dL (23-92) 09/24/17 17:24 TSH 0.65 uIU/ml (0.34-5.60) 09/24/17 17:24 Urine Source CLEAN C 09/24/17 17:10 Urine Color YELLOW 09/24/17 17:10 Urine Clarity CLEAR (CLEAR) 09/24/17 17:10 Urine pH 6.5 (4.6 - 8.0) 09/24/17 17:10 Ur Specific [place] 1.020 (1.005-1.030) 09/24/17 17:10 Urine Protein NEGATIVE mg/dL (NEGATIVE) 09/24/17 17:10 Urine Glucose (UA) NEGATIVE mg/dL (NEGATIVE) 09/24/17 17:10 Urine Ketones NEGATIVE mg/dL (NEGATIVE) 09/24/17 17:10 Urine Blood NEGATIVE (NEGATIVE) 09/24/17 17:10 Urine Nitrate NEGATIVE (NEGATIVE) 09/24/17 17:10 Urine Bilirubin NEGATIVE (NEGATIVE) 09/24/17 17:10 Urine Urobilinogen 0.2 E.U./dL (0.2 - 1.0) 09/24/17 17:10 Ur Leukocyte Esterase NEGATIVE (NEGATIVE) 09/24/17 17:10 Urine RBC NONE SEEN /hpf (0-5) 09/24/17 17:10 Urine WBC NONE SEEN /hpf (0-5) 09/24/17 17:10 Ur Epithelial Cells NONE SEEN /lpf (FEW) 09/24/17 17:10 Urine Bacteria NONE SEEN /hpf (NONE SEEN) 09/24/17 17:10 Salicylates < 25.0 mg/L (30.0-100.0) L 09/24/17 17:24 Urine Opiates Screen NEGATIVE (NEGATIVE) 09/24/17 17:10 Urine Methadone Screen NEGATIVE (NEGATIVE) 09/24/17 17:10 Acetaminophen < 10.0 ug/mL (10.0-30.0) L 09/24/17 17:24 Ur Barbiturates Screen NEGATIVE (NEGATIVE) 09/24/17 17:10 Ur Tricyclics Screen NEGATIVE (NEGATIVE) 09/24/17 17:10 Ur Phencyclidine Scrn NEGATIVE (NEGATIVE) 09/24/17 17:10 Amphetamines Screen NEGATIVE (NEGATIVE) 09/24/17 17:10 U Methamphetamines Scrn NEGATIVE (NEGATIVE) 09/24/17 17:10 U Benzodiazepines Scrn POSITIVE (NEGATIVE) H 09/24/17 17:10 U Cocaine Metab Screen NEGATIVE (NEGATIVE) 09/24/17 17:10 U Cannabinoids Screen NEGATIVE (NEGATIVE) 09/24/17 17:10 Ethyl Alcohol < 10 mg/dL (0-10) 09/24/17 17:24 RPR NONREACTIVE (NONREACTIVE) 09/24/17 17:24 - Physical Exam Vitals and I&O: Vital Signs Temp 98.5 F 1103/17 00:42 Pulse 67 10/04/17 00:42 Resp 20 10/04/17 00:42 BP 172/77 10/04/17 00:42 Pulse Ox 97 10/04/17 00:42 Intake & Output 10/03/17 10/04/17 10/04/17 18:59 06:59 18:59 Intake Total 1200 Balance 1200 Intake: Oral 1200 Active Medications: Current Medications Acetaminophen (Tylenol) 650 mg PO Q4HR PRN PRN Reason: Mild Pain / Temp above 100 Stop: 11/23/17 22:09 Last Admin: 10/03/17 15:07 Dose: 650 mg Al Hydrox/Mg Hydrox/Simethicone (Maalox) 30 ml PO Q4HR PRN PRN Reason: GI DISTRESS Stop: 11/23/17 22:09 Last Admin: 10/02/17 03:07 Dose: 30 ml Docusate Sodium (Colace) 100 mg PO BID STEFANY Stop: 11/24/17 08:59 Last Admin: 10/04/17 08:08 Dose: 100 mg Haloperidol (Haldol) 2 mg PO BID STEFANY PRN Reason: Protocol Stop: 11/29/17 16:59 Last Admin: 10/04/17 08:07 Dose: 2 mg Haloperidol Decanoate (Haldol Dec) 25 mg IM QMONTH STEFANY PRN Reason: Protocol Stop: 11/30/17 11:59 Last Admin: 10/01/17 12:42 Dose: 25 mg Lorazepam (Ativan) 0.5 mg PO Q4HR PRN; Protocol PRN Reason: Anxiety Stop: 10/24/17 22:09 Last Admin: 10/03/17 20:44 Dose: 0.5 mg Magnesium Hydroxide (Milk Of Magnesia) 30 ml PO HS PRN PRN Reason: Constipation Multivitamins/Vitamin C (Theragran) 1 tab PO DAILY STEFANY Stop: 11/24/17 08:59 Last Admin: 10/04/17 08:08 Dose: 1 tab Quetiapine Fumarate (Seroquel) 50 mg PO HS STEFANY Stop: 12/01/17 20:59 Last Admin: 10/03/17 20:44 Dose: 50 mg Zolpidem Tartrate (Ambien) 5 mg PO HS PRN PRN Reason: Insomnia Stop: 11/23/17 22:09 Last Admin: 10/03/17 20:45 Dose: 5 mg General: Alert, Other (Confused, not oriented) HEENT: Atraumatic Neck: Supple Cardiovascular: Regular rate Lungs: Clear to auscultation Abdomen: Bowel sounds Extremities: Other (No edema) Neurological: Other (Unstable gait) Skin: Other (Warm and dry) Psych/Mental Status: Other (Confused, not oriented) - Procedures Procedures: Procedures Procedure Code Date ABDOMINAL PROCTOPEXY 48.75 04/05/15 CORRECT RECTAL PROLAPSE 06209 04/05/15 OTHER GROUP THERAPY 94.44 04/13/15 Assessment/Plan - Problem List Patient Problems: All Active Problems Agitation (Acute) R45.1 Alzheimer's disease (Acute) G30.9 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 Dx Psychosis, Schizophrenia. - Plan Plan: Patient under Psychiatric care. Will continue with some SNF meds. Nutritional Asmnt/Malnutr-PDOC - Dietary Evaluation Malnutrition Findings (Please click <Entered> for more info): Nutritional Asmnt/Malnutrition Start: 09/27/17 16: 52 Text: Status: Complete Freq: Document 09/27/17 16:54 GSUN (Rec: 09/27/17 17:02 [email or web address]) Nutritional Asmnt/Malnutrition Patient General Information Nutritional Screening Moderate Risk Screening Diagnosis Psychosis NOS r/o schizoaffective disorder Pertinent Medical Hx/Surgical Hx Weakness, psychosis Subjective Information 72 year old female from SNF. Per nursing notes, pt is delusional. Spoke to pt in caty in rec room during meal time. Pt was talkative, a poor historian, off topic, did not provide much nutrition hx. Observed pt finished >75% of meal during visit without chew /swallowing difficulties noted . Pt apepared overweight, no muscle/fat wasting noted. Pt is edentulous on ground, stated has dentures but unable to state where, questionable. No nutritinoal concerns per nursing staff. Current Diet Order/ Nutrition Support [facility] soft ground Pertinent Medications Colace, MOM, Theragran, Seroquel Pertinent Labs 09/24: reviewed Nutritional Hx/Data Height 1.75 m Height (Calculated Centimeters) 175.3 Current Weight (lbs) 84.368 kg Weight (Calculated Kilograms) 84.4 Weight (Calculated Grams) 16550.2 [place] Body Weight 145 Recent Weight Change No Weight Status Overweight GI Symptoms Food Allergies No Usual diet at home [facility]: ground, regular Skin Integrity/Comment: Jonel 17. Current %PO Good (75-100%) Estimated Nutritional Goals Calories/Kcals/Kg IBW 145lb/65.9kg Kcals Calculated 1648-1977kcal (25-30kcal/kg) Protein Calculated 66g (1g/kg) Fluid: ml 1648-1977ml (1ml/kcal) Nutritional Problem 1. Problem Problem No nutritnioal problem at this time. Intervention/Recommendation Comments 1. Continue with current diet order. 2. Nursing staff to record %PO of every meal. Expected Outcomes/Goals Expected Outcomes/Goals 1. PO intake to meet at least 75% of estimated nutritinoal needs.
[2017-10-05] MEDS: Multivitamin Tab PO SCH (09:02)
--- NOTE | 2017-10-05 13:49 | General Progress Note ---
Subjective - Review of Systems Service Date: 10/05/17 Subjective: I want go home Objective - Results Result Diagrams: 09/24/17 17:24 09/24/17 17:24 Recent Labs: Laboratory Last Values WBC 4.9 Th/cmm (4.8-10.8) D 09/24/17 17:24 RBC 4.01 Mil/cmm (3.80-5.20) 09/24/17 17:24 Hgb 13.3 gm/dL (12-16) D 09/24/17 17:24 Hct 39.1 % (41.0-60) L D 09/24/17 17:24 MCV 97.6 fl (81-100) 09/24/17 17:24 MCH 33.2 pg (27.0-31.0) H 09/24/17 17:24 MCHC Differential 34.0 pg (28.0-36.0) 09/24/17 17:24 RDW 13.9 % (11.5-20.0) 09/24/17 17:24 Plt Count 138 Th/cmm (150-400) L D 09/24/17 17:24 MPV 8.6 fl 09/24/17 17:24 Neutrophils % 40.6 % (40.0-80.0) 09/24/17 17:24 Lymphocytes % 48.5 % (20.0-50.0) 09/24/17 17:24 Monocytes % 7.4 % (2.0-10.0) 09/24/17 17:24 Eosinophils % 2.6 % (0.0-5.0) 09/24/17 17:24 Basophils % 0.9 % (0.0-2.0) 09/24/17 17:24 Sodium 135 mEq/L (136-145) L 09/24/17 17:24 Potassium 4.5 mEq/L (3.5-5.1) 09/24/17 17:24 Chloride 103 mEq/L (98-107) 09/24/17 17:24 Carbon Dioxide 31.1 mEq/L (21.0-31.0) H 09/24/17 17:24 Anion Gap 5.4 (7.0-16.0) L 09/24/17 17:24 BUN 29 mg/dL (7-25) H 09/24/17 17:24 Creatinine 0.8 mg/dL (0.6-1.2) 09/24/17 17:24 Est GFR ( Amer) > 60.0 ml/min (>90) 09/24/17 17:24 Est GFR (Non-Af Amer) > 60.0 ml/min 09/24/17 17:24 BUN/Creatinine Ratio 36.3 09/24/17 17:24 Glucose 94 mg/dL (70-105) 09/24/17 17:24 Hemoglobin A1c % 4.8 % (4.0-6.0) 09/24/17 17:24 Calcium 10.1 mg/dL (8.6-10.3) 09/24/17:24 Total Bilirubin 0.5 mg/dL (0.3-1.0) 09/24/17 17:24 AST 49 U/L (13-39) H 09/24/17 17:24 ALT 60 U/L (7-52) H 09/24/17 17:24 Alkaline Phosphatase 88 U/L (34-104) 09/24/17 17:24 Total Protein 7.1 gm/dL (6.0-8.3) 09/24/17 17:24 Albumin 3.6 gm/dL (3.7-5.3) L 09/24/17:24 Globulin 3.5 gm/dL 09/24/17 17:24 Albumin/Globulin Ratio 1.0 (1.0-1.8) 09/24/17 17:24 Triglycerides 77 mg/dL (<150) 09/24/17 17:24 Cholesterol 150 mg/dL (<200) 09/24/17 17:24 LDL Cholesterol Direct 80 mg/dL (75-193) 09/24/17 17:24 HDL Cholesterol 53 mg/dL (23-92) 09/24/17 17:24 TSH 0.65 uIU/ml (0.34-5.60) 09/24/17 17:24 Urine Source CLEAN C 09/24/17 17:10 Urine Color YELLOW 09/24/17 17:10 Urine Clarity CLEAR (CLEAR) 09/24/17 17:10 Urine pH 6.5 (4.6 - 8.0) 09/24/17 17:10 Ur Specific [place] 1.020 (1.005-1.030) 09/24/17 17:10 Urine Protein NEGATIVE mg/dL (NEGATIVE) 09/24/17 17:10 Urine Glucose (UA) NEGATIVE mg/dL (NEGATIVE) 09/24/17 17:10 Urine Ketones NEGATIVE mg/dL (NEGATIVE) 09/24/17 17:10 Urine Blood NEGATIVE (NEGATIVE) 09/24/17 17:10 Urine Nitrate NEGATIVE (NEGATIVE) 09/24/17 17:10 Urine Bilirubin NEGATIVE (NEGATIVE) 09/24/17 17:10 Urine Urobilinogen 0.2 E.U./dL (0.2 - 1.0) 09/24/17 17:10 Ur Leukocyte Esterase NEGATIVE (NEGATIVE) 09/24/17 17:10 Urine RBC NONE SEEN /hpf (0-5) 09/24/17 17:10 Urine WBC NONE SEEN /hpf (0-5) 09/24/17 17:10 Ur Epithelial Cells NONE SEEN /lpf (FEW) 09/24/17 17:10 Urine Bacteria NONE SEEN /hpf (NONE SEEN) 09/24/17 17:10 Salicylates < 25.0 mg/L (30.0-100.0) L 09/24/17 17:24 Urine Opiates Screen NEGATIVE (NEGATIVE) 09/24/17 17:10 Urine Methadone Screen NEGATIVE (NEGATIVE) 09/24/17 17:10 Acetaminophen < 10.0 ug/mL (10.0-30.0) L 09/24/17 17:24 Ur Barbiturates Screen NEGATIVE (NEGATIVE) 09/24/17 17:10 Ur Tricyclics Screen NEGATIVE (NEGATIVE) 09/24/17 17:10 Ur Phencyclidine Scrn NEGATIVE (NEGATIVE) 09/24/17 17:10 Amphetamines Screen NEGATIVE (NEGATIVE) 09/24/17 17:10 U Methamphetamines Scrn NEGATIVE (NEGATIVE) 09/24/17 17:10 U Benzodiazepines Scrn POSITIVE (NEGATIVE) H 09/24/17 17:10 U Cocaine Metab Screen NEGATIVE (NEGATIVE) 09/24/17 17:10 U Cannabinoids Screen NEGATIVE (NEGATIVE) 09/24/17 17:10 Ethyl Alcohol < 10 mg/dL (0-10) 09/24/17 17:24 RPR NONREACTIVE (NONREACTIVE) 09/24/17 17:24 - Physical Exam Vitals and I&O: Vital Signs Temp 98.3 F 1103/17 20:19 Pulse 70 10/04/17 20:19 Resp 20 10/04/17 20:19 BP 164/79 10/04/17 20:19 Pulse Ox 96 10/04/17 20:19 Intake & Output 10/04/17 10/05/17 10/05/17 18:59 06:59 18:59 Intake Total 1000 240 Balance 1000 240 Intake: Oral 1000 240 Other: # Voids 3 2 # Bowel Movements 2 Active Medications: Current Medications Acetaminophen (Tylenol) 650 mg PO Q4HR PRN PRN Reason: Mild Pain / Temp above 100 Stop: 11/23/17 22:09 Last Admin: 10/03/17 15:07 Dose: 650 mg Al Hydrox/Mg Hydrox/Simethicone (Maalox) 30 ml PO Q4HR PRN PRN Reason: GI DISTRESS Stop: 11/23/17 22:09 Last Admin: 10/02/17 03:07 Dose: 30 ml Docusate Sodium (Colace) 100 mg PO BID STEFANY Stop: 11/24/17 08:59 Last Admin: 10/05/17 09:02 Dose: 100 mg Lorazepam (Ativan) 0.5 mg PO Q4HR PRN; Protocol PRN Reason: Anxiety Stop: 10/24/17 22:09 Last Admin: 10/03/17 20:44 Dose: 0.5 mg Magnesium Hydroxide (Milk Of Magnesia) 30 ml PO HS PRN PRN Reason: Constipation Multivitamins/Vitamin C (Theragran) 1 tab PO DAILY STEFANY Stop: 11/24/17 08:59 Last Admin: 10/05/17 09:02 Dose: 1 tab Quetiapine Fumarate (Seroquel) 100 mg PO HS STEFANY Stop: 12/03/17 18:54 Last Admin: 10/04/17 20:46 Dose: 100 mg Zolpidem Tartrate (Ambien) 5 mg PO HS PRN PRN Reason: Insomnia Stop: 11/23/17 22:09 Last Admin: 10/03/17 20:45 Dose: 5 mg General: Alert, Other (Confused, not oriented) HEENT: Atraumatic Neck: Supple Cardiovascular: Regular rate Lungs: Clear to auscultation Abdomen: Bowel sounds Extremities: Other (No edema) Neurological: Other (Unstable gait) Skin: Other (Warm and dry) Psych/Mental Status: Other (Confused, not oriented) - Procedures Procedures: Procedures Procedure Code Date ABDOMINAL PROCTOPEXY 48.75 04/05/15 CORRECT RECTAL PROLAPSE 97263 04/05/15 OTHER GROUP THERAPY 94.44 04/13/15 Assessment/Plan - Problem List Patient Problems: All Active Problems Agitation (Acute) R45.1 Alzheimer's disease (Acute) G30.9 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 Dx Psychosis, Schizophrenia. - Plan Plan: Patient under Psychiatric care. Will continue with some SNF meds. Nutritional Asmnt/Malnutr-PDOC - Dietary Evaluation Malnutrition Findings (Please click <Entered> for more info): Nutritional Asmnt/Malnutrition Start: 09/27/17 16: 52 Text: Status: Complete Freq: Document 09/27/17 16:54 GSUN (Rec: 09/27/17 17:02 [email or web address]) Nutritional Asmnt/Malnutrition Patient General Information Nutritional Screening Moderate Risk Diagnosis Psychosis NOS r/o schizoaffective disorder Pertinent Medical Hx/Surgical Hx Weakness, psychosis Subjective Information 72 year old female from SNF. Per nursing notes, pt is delusional. Spoke to pt in caty in rec room during meal time. Pt was talkative, a poor historian, off topic, did not provide much nutrition hx. Observed pt finished >75% of meal during visit without chew /swallowing difficulties noted . Pt apepared overweight, no muscle/fat wasting noted. Pt is edentulous on ground, stated has dentures but unable to state where, questionable. No nutritinoal concerns per nursing staff. Current Diet Order/ Nutrition Support [facility] soft ground Pertinent Medications Colace, MOM, Theragran, Seroquel Pertinent Labs 09/24: reviewed Nutritional Hx/Data Height 1.75 m Height (Calculated Centimeters) 175.3 Current Weight (lbs) 84.368 kg Weight (Calculated Kilograms) 84.4 Weight (Calculated Grams) 98383.2 [place] Body Weight 145 Recent Weight Change No Weight Status Overweight GI Symptoms Food Allergies No Usual diet at home [facility]: ground, regular Skin Integrity/Comment: Jonel 17. Current %PO Good (75-100%) Estimated Nutritional Goals Calories/Kcals/Kg IBW 145lb/65.9kg Kcals Calculated 1648-1977kcal (25-30kcal/kg) Protein Calculated 66g (1g/kg) Fluid: ml 1648-1977ml (1ml/kcal) Nutritional Problem 1. Problem Problem No nutritnioal problem at this time. Intervention/Recommendation Comments 1. Continue with current diet order. 2. Nursing staff to record %PO of every meal. Expected Outcomes/Goals Expected Outcomes/Goals 1. PO intake to meet at least 75% of estimated nutritinoal needs.
--- NOTE | 2017-10-06 01:38 | Progress Notes ---
DATE: 10/05/2017 SUBJECTIVE: Staff was spoken to. The patient is interviewed. Mood is noted to be irritable. Affect is constricted. The patient is very paranoid and has been mentioning that she has been quiet because she is going to be having the surgery at 11:30. Coping skills at this time are noted to be very poor. Sleep and appetite are also noted to be poor. The patient has been placed on Seroquel 100 mg at bedtime. The patient had been given the Haldol Decanoate. The patient at this time is still psychotic. PLAN: To continue the patient with supportive therapy, encouraged the patient to verbalize the concerns. JOB# [id number]
[2017-10-06] MEDS: Multivitamin Tab PO SCH (08:09)
--- NOTE | 2017-10-06 13:58 | General Progress Note ---
Subjective - Review of Systems Service Date: 10/06/17 Subjective: I want go home Objective - Results Result Diagrams: 09/24/17 17:24 09/24/17 17:24 Recent Labs: Laboratory Last Values WBC 4.9 Th/cmm (4.8-10.8) D 09/24/17 17:24 RBC 4.01 Mil/cmm (3.80-5.20) 09/24/17 17:24 Hgb 13.3 gm/dL (12-16) D 09/24/17 17:24 Hct 39.1 % (41.0-60) L D 09/24/17 17:24 MCV 97.6 fl (81-100) 09/24/17 17:24 MCH 33.2 pg (27.0-31.0) H 09/24/17 17:24 MCHC Differential 34.0 pg (28.0-36.0) 09/24/17 17:24 RDW 13.9 % (11.5-20.0) 09/24/17 17:24 Plt Count 138 Th/cmm (150-400) L D 09/24/17 17:24 MPV 8.6 fl 09/24/17 17:24 Neutrophils % 40.6 % (40.0-80.0) 09/24/17 17:24 Lymphocytes % 48.5 % (20.0-50.0) 09/24/17 17:24 Monocytes % 7.4 % (2.0-10.0) 09/24/17 17:24 Eosinophils % 2.6 % (0.0-5.0) 09/24/17 17:24 Basophils % 0.9 % (0.0-2.0) 09/24/17 17:24 Sodium 135 mEq/L (136-145) L 09/24/17 17:24 Potassium 4.5 mEq/L (3.5-5.1) 09/24/17 17:24 Chloride 103 mEq/L (98-107) 09/24/17 17:24 Carbon Dioxide 31.1 mEq/L (21.0-31.0) H 09/24/17 17:24 Anion Gap 5.4 (7.0-16.0) L 09/24/17 17:24 BUN 29 mg/dL (7-25) H 09/24/17 17:24 Creatinine 0.8 mg/dL (0.6-1.2) 09/24/17 17:24 Est GFR ( Amer) > 60.0 ml/min (>90) 09/24/17 17:24 Est GFR (Non-Af Amer) > 60.0 ml/min 09/24/17 17:24 BUN/Creatinine Ratio 36.3 09/24/17 17:24 Glucose 94 mg/dL (70-105) 09/24/17 17:24 Hemoglobin A1c % 4.8 % (4.0-6.0) 09/24/17 17:24 Calcium 10.1 mg/dL (8.6-10.3) 09/24/17:24 Total Bilirubin 0.5 mg/dL (0.3-1.0) 09/24/17 17:24 AST 49 U/L (13-39) H 09/24/17 17:24 ALT 60 U/L (7-52) H 09/24/17 17:24 Alkaline Phosphatase 88 U/L (34-104) 09/24/17 17:24 Total Protein 7.1 gm/dL (6.0-8.3) 09/24/17 17:24 Albumin 3.6 gm/dL (3.7-5.3) L 09/24/17:24 Globulin 3.5 gm/dL 09/24/17 17:24 Albumin/Globulin Ratio 1.0 (1.0-1.8) 09/24/17 17:24 Triglycerides 77 mg/dL (<150) 09/24/17 17:24 Cholesterol 150 mg/dL (<200) 09/24/17 17:24 LDL Cholesterol Direct 80 mg/dL (75-193) 09/24/17 17:24 HDL Cholesterol 53 mg/dL (23-92) 09/24/17 17:24 TSH 0.65 uIU/ml (0.34-5.60) 09/24/17 17:24 Urine Source CLEAN C 09/24/17 17:10 Urine Color YELLOW 09/24/17 17:10 Urine Clarity CLEAR (CLEAR) 09/24/17 17:10 Urine pH 6.5 (4.6 - 8.0) 09/24/17 17:10 Ur Specific [place] 1.020 (1.005-1.030) 09/24/17 17:10 Urine Protein NEGATIVE mg/dL (NEGATIVE) 09/24/17 17:10 Urine Glucose (UA) NEGATIVE mg/dL (NEGATIVE) 09/24/17 17:10 Urine Ketones NEGATIVE mg/dL (NEGATIVE) 09/24/17 17:10 Urine Blood NEGATIVE (NEGATIVE) 09/24/17 17:10 Urine Nitrate NEGATIVE (NEGATIVE) 09/24/17 17:10 Urine Bilirubin NEGATIVE (NEGATIVE) 09/24/17 17:10 Urine Urobilinogen 0.2 E.U./dL (0.2 - 1.0) 09/24/17 17:10 Ur Leukocyte Esterase NEGATIVE (NEGATIVE) 09/24/17 17:10 Urine RBC NONE SEEN /hpf (0-5) 09/24/17 17:10 Urine WBC NONE SEEN /hpf (0-5) 09/24/17 17:10 Ur Epithelial Cells NONE SEEN /lpf (FEW) 09/24/17 17:10 Urine Bacteria NONE SEEN /hpf (NONE SEEN) 09/24/17 17:10 Salicylates < 25.0 mg/L (30.0-100.0) L 09/24/17 17:24 Urine Opiates Screen NEGATIVE (NEGATIVE) 09/24/17 17:10 Urine Methadone Screen NEGATIVE (NEGATIVE) 09/24/17 17:10 Acetaminophen < 10.0 ug/mL (10.0-30.0) L 09/24/17 17:24 Ur Barbiturates Screen NEGATIVE (NEGATIVE) 09/24/17 17:10 Ur Tricyclics Screen NEGATIVE (NEGATIVE) 09/24/17 17:10 Ur Phencyclidine Scrn NEGATIVE (NEGATIVE) 09/24/17 17:10 Amphetamines Screen NEGATIVE (NEGATIVE) 09/24/17 17:10 U Methamphetamines Scrn NEGATIVE (NEGATIVE) 09/24/17 17:10 U Benzodiazepines Scrn POSITIVE (NEGATIVE) H 09/24/17 17:10 U Cocaine Metab Screen NEGATIVE (NEGATIVE) 09/24/17 17:10 U Cannabinoids Screen NEGATIVE (NEGATIVE) 09/24/17 17:10 Ethyl Alcohol < 10 mg/dL (0-10) 09/24/17 17:24 RPR NONREACTIVE (NONREACTIVE) 09/24/17 17:24 - Physical Exam Vitals and I&O: Vital Signs Temp 97.6 F 11/04/17 20:00 Pulse 80 10/05/17 20:00 Resp 18 10/05/17 20:00 BP 130/66 10/05/17 20:00 Pulse Ox 97 10/05/17 20:00 Intake & Output 10/05/17 10/06/17 10/06/17 19:59 06:59 18:59 Intake Total Balance Intake: Oral Other: # Voids # Bowel Movements Active Medications: Current Medications Acetaminophen (Tylenol) 650 mg PO Q4HR PRN PRN Reason: Mild Pain / Temp above 100 Stop: 11/23/17 22:09 Last Admin: 10/03/17 15:07 Dose: 650 mg Al Hydrox/Mg Hydrox/Simethicone (Maalox) 30 ml PO Q4HR PRN PRN Reason: GI DISTRESS Stop: 11/23/17 22:09 Last Admin: 10/02/17 03:07 Dose: 30 ml Docusate Sodium (Colace) 100 mg PO BID STEFANY Stop: 11/24/17 08:59 Last Admin: 10/06/17 08:09 Dose: 100 mg Lorazepam (Ativan) 0.5 mg PO Q4HR PRN; Protocol PRN Reason: Anxiety Stop: 10/24/17 22:09 Last Admin: 10/03/17 20:44 Dose: 0.5 mg Magnesium Hydroxide (Milk Of Magnesia) 30 ml PO HS PRN PRN Reason: Constipation Multivitamins/Vitamin C (Theragran) 1 tab PO DAILY STEFANY Stop: 11/24/17 08:59 Last Admin: 10/06/17 08:09 Dose: 1 tab Quetiapine Fumarate (Seroquel) 100 mg PO HS STEFANY Stop: 12/03/17 18:54 Last Admin: 10/05/17 20:45 Dose: 100 mg Zolpidem Tartrate (Ambien) 5 mg PO HS PRN PRN Reason: Insomnia Stop: 11/23/17 22:09 Last Admin: 10/03/17 20:45 Dose: 5 mg General: Alert, Other (Confused, not oriented) HEENT: Atraumatic Neck: Supple Cardiovascular: Regular rate Lungs: Clear to auscultation Abdomen: Bowel sounds Extremities: Other (No edema) Neurological: Other (Unstable gait) Skin: Other (Warm and dry) Psych/Mental Status: Other (Confused, not oriented) - Procedures Procedures: Procedures Procedure Code Date ABDOMINAL PROCTOPEXY 48.75 04/05/15 CORRECT RECTAL PROLAPSE 00172 04/05/15 OTHER GROUP THERAPY 94.44 04/13/15 Assessment/Plan - Problem List Patient Problems: All Active Problems Agitation (Acute) R45.1 Alzheimer's disease (Acute) G30.9 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 Dx Psychosis, Schizophrenia. - Plan Plan: Patient under Psychiatric care. Will continue with some SNF meds. Nutritional Asmnt/Malnutr-PDOC - Dietary Evaluation Malnutrition Findings (Please click <Entered> for more info): Nutritional Asmnt/Malnutrition Start: 09/27/17 16: 52 Text: Status: Complete Freq: Document 09/27/17 16:54 GSUN (Rec: 09/27/17 17:02 GSUN [email or web address]) Nutritional Asmnt/Malnutrition Patient General Information Nutritional Screening Moderate Risk Diagnosis Psychosis NOS r/o schizoaffective disorder Pertinent Medical Hx/Surgical Hx Weakness, psychosis Subjective Information 72 year old female from SNF. Per nursing notes, pt is delusional. Spoke to pt in caty in rec room during meal time. Pt was talkative, a poor historian, off topic, did not provide much nutrition hx. Observed pt finished >75% of meal during visit without chew /swallowing difficulties noted . Pt apepared overweight, no muscle/fat wasting noted. Pt is edentulous on ground, stated has dentures but unable to state where, questionable. No nutritinoal concerns per nursing staff. Current Diet Order/ Nutrition Support [facility] soft ground Pertinent Medications Colace, MOM, Theragran, Seroquel Pertinent Labs 09/24: reviewed Nutritional Hx/Data Height 1.75 m Height (Calculated Centimeters) 175.3 Current Weight (lbs) 84.368 kg Weight (Calculated Kilograms) 84.4 Weight (Calculated Grams) 35498.2 [place] Body Weight 145 Recent Weight Change No Weight Status Overweight GI Symptoms Food Allergies No Usual diet at home [place]: ground, regular Skin Integrity/Comment: Jonel 17. Current %PO Good (75-100%) Estimated Nutritional Goals Calories/Kcals/Kg IBW 145lb/65.9kg Kcals Calculated 1648-1977kcal (25-30kcal/kg) Protein Calculated 66g (1g/kg) Fluid: ml 1648-1977ml (1ml/kcal) Nutritional Problem 1. Problem Problem No nutritnioal problem at this time. Intervention/Recommendation Comments 1. Continue with current diet order. 2. Nursing staff to record %PO of every meal. Expected Outcomes/Goals Expected Outcomes/Goals 1. PO intake to meet at least 75% of estimated nutritinoal needs.
--- NOTE | 2017-10-06 23:45 | Progress Notes ---
DATE: 10/06/2017 SUBJECTIVE: Staff was spoken to. The patient is interviewed. Mood is noted to be anxious. The patient is confused. The patient is still psychotic. Coping skills are noted to be still poor. Paranoid delusions are noted, but no command hallucinations are noted. The patient is still believing that she is . The patient has been given the Haldol Decanoate 25 mg IM. The patient is currently being maintained with 100 mg of Seroquel. ASSESSMENT: The patient is still psychotic. PLAN: To continue the patient with the supportive therapy. I encouraged the patient to verbalize the concerns rather than to act out. JOB# [id number]
[2017-10-07] MEDS: Multivitamin Tab PO SCH (08:13)
--- NOTE | 2017-10-07 08:35 | General Progress Note ---
Subjective - Review of Systems Service Date: 10/07/17 Subjective: I want go home Objective - Results Result Diagrams: 09/24/17 17:24 09/24/17 17:24 Recent Labs: Laboratory Last Values WBC 4.9 Th/cmm (4.8-10.8) D 09/24/17 17:24 RBC 4.01 Mil/cmm (3.80-5.20) 09/24/17 17:24 Hgb 13.3 gm/dL (12-16) D 09/24/17 17:24 Hct 39.1 % (41.0-60) L D 09/24/17 17:24 MCV 97.6 fl (81-100) 09/24/17 17:24 MCH 33.2 pg (27.0-31.0) H 09/24/17 17:24 MCHC Differential 34.0 pg (28.0-36.0) 09/24/17 17:24 RDW 13.9 % (11.5-20.0) 09/24/17 17:24 Plt Count 138 Th/cmm (150-400) L D 09/24/17 17:24 MPV 8.6 fl 09/24/17 17:24 Neutrophils % 40.6 % (40.0-80.0) 09/24/17 17:24 Lymphocytes % 48.5 % (20.0-50.0) 09/24/17 17:24 Monocytes % 7.4 % (2.0-10.0) 09/24/17 17:24 Eosinophils % 2.6 % (0.0-5.0) 09/24/17 17:24 Basophils % 0.9 % (0.0-2.0) 09/24/17 17:24 Sodium 135 mEq/L (136-145) L 09/24/17 17:24 Potassium 4.5 mEq/L (3.5-5.1) 09/24/17 17:24 Chloride 103 mEq/L (98-107) 09/24/17 17:24 Carbon Dioxide 31.1 mEq/L (21.0-31.0) H 09/24/17 17:24 Anion Gap 5.4 (7.0-16.0) L 09/24/17 17:24 BUN 29 mg/dL (7-25) H 09/24/17 17:24 Creatinine 0.8 mg/dL (0.6-1.2) 09/24/17 17:24 Est GFR ( Amer) > 60.0 ml/min (>90) 09/24/17 17:24 Est GFR (Non-Af Amer) > 60.0 ml/min 09/24/17 17:24 BUN/Creatinine Ratio 36.3 09/24/17 17:24 Glucose 94 mg/dL (70-105) 09/24/17 17:24 Hemoglobin A1c % 4.8 % (4.0-6.0) 09/24/17 17:24 Calcium 10.1 mg/dL (8.6-10.3) 09/24/17:24 Total Bilirubin 0.5 mg/dL (0.3-1.0) 09/24/17 17:24 AST 49 U/L (13-39) H 09/24/17 17:24 ALT 60 U/L (7-52) H 09/24/17 17:24 Alkaline Phosphatase 88 U/L (34-104) 09/24/17 17:24 Total Protein 7.1 gm/dL (6.0-8.3) 09/24/17 17:24 Albumin 3.6 gm/dL (3.7-5.3) L 09/24/17:24 Globulin 3.5 gm/dL 09/24/17 17:24 Albumin/Globulin Ratio 1.0 (1.0-1.8) 09/24/17 17:24 Triglycerides 77 mg/dL (<150) 09/24/17 17:24 Cholesterol 150 mg/dL (<200) 09/24/17 17:24 LDL Cholesterol Direct 80 mg/dL (75-193) 09/24/17 17:24 HDL Cholesterol 53 mg/dL (23-92) 09/24/17 17:24 TSH 0.65 uIU/ml (0.34-5.60) 09/24/17 17:24 Urine Source CLEAN C 09/24/17 17:10 Urine Color YELLOW 09/24/17 17:10 Urine Clarity CLEAR (CLEAR) 09/24/17 17:10 Urine pH 6.5 (4.6 - 8.0) 09/24/17 17:10 Ur Specific [place] 1.020 (1.005-1.030) 09/24/17 17:10 Urine Protein NEGATIVE mg/dL (NEGATIVE) 09/24/17 17:10 Urine Glucose (UA) NEGATIVE mg/dL (NEGATIVE) 09/24/17 17:10 Urine Ketones NEGATIVE mg/dL (NEGATIVE) 09/24/17 17:10 Urine Blood NEGATIVE (NEGATIVE) 09/24/17 17:10 Urine Nitrate NEGATIVE (NEGATIVE) 09/24/17 17:10 Urine Bilirubin NEGATIVE (NEGATIVE) 09/24/17 17:10 Urine Urobilinogen 0.2 E.U./dL (0.2 - 1.0) 09/24/17 17:10 Ur Leukocyte Esterase NEGATIVE (NEGATIVE) 09/24/17 17:10 Urine RBC NONE SEEN /hpf (0-5) 09/24/17 17:10 Urine WBC NONE SEEN /hpf (0-5) 09/24/17 17:10 Ur Epithelial Cells NONE SEEN /lpf (FEW) 09/24/17 17:10 Urine Bacteria NONE SEEN /hpf (NONE SEEN) 09/24/17 17:10 Salicylates < 25.0 mg/L (30.0-100.0) L 09/24/17 17:24 Urine Opiates Screen NEGATIVE (NEGATIVE) 09/24/17 17:10 Urine Methadone Screen NEGATIVE (NEGATIVE) 09/24/17 17:10 Acetaminophen < 10.0 ug/mL (10.0-30.0) L 09/24/17 17:24 Ur Barbiturates Screen NEGATIVE (NEGATIVE) 09/24/17 17:10 Ur Tricyclics Screen NEGATIVE (NEGATIVE) 09/24/17 17:10 Ur Phencyclidine Scrn NEGATIVE (NEGATIVE) 09/24/17 17:10 Amphetamines Screen NEGATIVE (NEGATIVE) 09/24/17 17:10 U Methamphetamines Scrn NEGATIVE (NEGATIVE) 09/24/17 17:10 U Benzodiazepines Scrn POSITIVE (NEGATIVE) H 09/24/17 17:10 U Cocaine Metab Screen NEGATIVE (NEGATIVE) 09/24/17 17:10 U Cannabinoids Screen NEGATIVE (NEGATIVE) 09/24/17 17:10 Ethyl Alcohol < 10 mg/dL (0-10) 09/24/17 17:24 RPR NONREACTIVE (NONREACTIVE) 09/24/17 17:24 - Physical Exam Vitals and I&O: Vital Signs Temp 98 F 10/07/17 06:10 Pulse 77 10/07/17 06:10 Resp 18 10/07/17 06:10 BP 148/74 10/07/17 06:10 Pulse Ox 96 10/07/17 06:10 Intake & Output 10/06/17 10/07/17 10/07/17 18:59 06:59 18:59 Intake Total 700 120 Balance 700 120 Intake: Oral 700 120 Other: # Voids 4 3 # Bowel Movements 1 Active Medications: Current Medications Acetaminophen (Tylenol) 650 mg PO Q4HR PRN PRN Reason: Mild Pain / Temp above 100 Stop: 11/23/17 22:09 Last Admin: 10/06/17 16:32 Dose: 650 mg Al Hydrox/Mg Hydrox/Simethicone (Maalox) 30 ml PO Q4HR PRN PRN Reason: GI DISTRESS Stop: 11/23/17 22:09 Last Admin: 10/02/17 03:07 Dose: 30 ml Docusate Sodium (Colace) 100 mg PO BID STEFANY Stop: 11/24/17 08:59 Last Admin: 10/07/17 08:12 Dose: 100 mg Lorazepam (Ativan) 0.5 mg PO Q4HR PRN; Protocol PRN Reason: Anxiety Stop: 10/24/17 22:09 Last Admin: 10/07/17 07:42 Dose: 0.5 mg Magnesium Hydroxide (Milk Of Magnesia) 30 ml PO HS PRN PRN Reason: Constipation Multivitamins/Vitamin C (Theragran) 1 tab PO DAILY STEFANY Stop: 11/24/17 08:59 Last Admin: 10/07/17 08:13 Dose: 1 tab Quetiapine Fumarate (Seroquel) 100 mg PO HS STEFANY Stop: 12/03/17 18:54 Last Admin: 10/06/17 21:02 Dose: 100 mg Zolpidem Tartrate (Ambien) 5 mg PO HS PRN PRN Reason: Insomnia Stop: 11/23/17 22:09 Last Admin: 10/06/17 21:27 Dose: 5 mg General: Alert, Other (Confused, not oriented) HEENT: Atraumatic Neck: Supple Cardiovascular: Regular rate Lungs: Clear to auscultation Abdomen: Bowel sounds Extremities: Other (No edema) Neurological: Other (Unstable gait) Skin: Other (Warm and dry) Psych/Mental Status: Other (Confused, not oriented) - Procedures Procedures: Procedures Procedure Code Date ABDOMINAL PROCTOPEXY 48.75 04/05/15 CORRECT RECTAL PROLAPSE 26434 04/05/15 OTHER GROUP THERAPY 94.44 04/13/15 Assessment/Plan - Problem List Patient Problems: All Active Problems Agitation (Acute) R45.1 Alzheimer's disease (Acute) G30.9 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 Dx Psychosis, Schizophrenia. - Plan Plan: Patient under Psychiatric care. Will continue with some SNF meds. Nutritional Asmnt/Malnutr-PDOC - Dietary Evaluation Malnutrition Findings (Please click <Entered> for more info): Nutritional Asmnt/Malnutrition Start: 09/27/17 16: 52 Text: Status: Complete Freq: Document 09/27/17 16:54 GSUN (Rec: 09/27/17 17:02 GSUN [email or web address]) Nutritional Asmnt/Malnutrition Patient General Information Nutritional Screening Moderate Risk Diagnosis Psychosis NOS r/o schizoaffective disorder Pertinent Medical Hx/Surgical Hx Weakness, psychosis Subjective Information 72 year old female from SNF. Per nursing notes, pt is delusional. Spoke to pt in caty in rec room during meal time. Pt was talkative, a poor historian, off topic, did not provide much nutrition hx. Observed pt finished >75% of meal during visit without chew /swallowing difficulties noted . Pt apepared overweight, no muscle/fat wasting noted. Pt is edentulous on ground, stated has dentures but unable to state where, questionable. No nutritinoal concerns per nursing staff. Current Diet Order/ Nutrition Support [facility] soft ground Pertinent Medications Colace, MOM, Theragran, Seroquel Pertinent Labs 09/24: reviewed Nutritional Hx/Data Height 1.75 m Height (Calculated Centimeters) 175.3 Current Weight (lbs) 84.368 kg Weight (Calculated Kilograms) 84.4 Weight (Calculated Grams) 22316.2 [place] Body Weight 145 Recent Weight Change No Weight Status Overweight GI Symptoms Food Allergies No Usual diet at home [facility]: ground, regular Skin Integrity/Comment: Jonel 17. Current %PO Good (75-100%) Estimated Nutritional Goals Calories/Kcals/Kg IBW 145lb/65.9kg Kcals Calculated 1648-1977kcal (25-30kcal/kg) Protein Calculated 66g (1g/kg) Fluid: ml 1648-1977ml (1ml/kcal) Nutritional Problem 1. Problem Problem No nutritnioal problem at this time. Intervention/Recommendation Comments 1. Continue with current diet order. 2. Nursing staff to record %PO of every meal. Expected Outcomes/Goals Expected Outcomes/Goals 1. PO intake to meet at least 75% of estimated nutritinoal needs.
--- NOTE | 2017-10-07 08:37 | Progress Notes ---
DATE: 10/04/2017 PSYCHIATRIC PROGRESS NOTE SUBJECTIVE: Staff was spoken to, the patient is interviewed. Mood is noted to be irritable. Affect is constricted. The patient is still testing the limits. No side effects to the medications are noted. The patient has been currently on the Haldol 2 mg b.i.d. The patient has been given the dose of the Seroquel, which is going to be increased to 200 mg at bedtime and the patient is going to be followed up with supportive therapy. The patient continues to be impulsive and patient has been having acute mood swings. One minute she is okay and the next minute she has been presenting with crying spells. ASSESSMENT: The patient is still impulsive. PLAN: To continue the patient with supportive therapy. I encouraged the patient to verbalize the concerns. The oral dose of the Haldol is going to be discontinued and the patient has already been given the Haldol Decanoate. The patient is going to be continued only with the Seroquel prior to her being discharged with the recommendation that she is going to be continuing with the medications and possibly tapering it if she is going to be doing fairly well. JOB# [id number]
--- NOTE | 2017-10-07 20:49 | Progress Notes ---
DATE: 10/07/2017 SUBJECTIVE: Staff was spoken to. The patient is interviewed. Mood is noted to be irritable. Affect is constricted. The patient is screaming and yelling and stating that she needs to have the baby is to come out. The patient has pain going on a tangent. No side effects to the medications are noted at this time. The patient has been still insisting on having her way. The patient is currently on the 100 mg of the Seroquel and plan to increase the dose to 150 mg and encouraged the patient to verbalize the concerns rather than to act out. The patient already has been given the Haldol Decanoate in the past. The patient is still psychotic and not ready to be discharged to the low level of care. JOB# [id number]
[2017-10-08] MEDS: Multivitamin Tab PO SCH (08:38)
--- NOTE | 2017-10-08 08:57 | General Progress Note ---
Subjective - Review of Systems Service Date: 10/08/17 Subjective: I want go home Objective - Results Result Diagrams: 09/24/17 17:24 09/24/17 17:24 Recent Labs: Laboratory Last Values WBC 4.9 Th/cmm (4.8-10.8) D 09/24/17 17:24 RBC 4.01 Mil/cmm (3.80-5.20) 09/24/17 17:24 Hgb 13.3 gm/dL (12-16) D 09/24/17 17:24 Hct 39.1 % (41.0-60) L D 09/24/17 17:24 MCV 97.6 fl (81-100) 09/24/17 17:24 MCH 33.2 pg (27.0-31.0) H 09/24/17 17:24 MCHC Differential 34.0 pg (28.0-36.0) 09/24/17 17:24 RDW 13.9 % (11.5-20.0) 09/24/17 17:24 Plt Count 138 Th/cmm (150-400) L D 09/24/17 17:24 MPV 8.6 fl 09/24/17 17:24 Neutrophils % 40.6 % (40.0-80.0) 09/24/17 17:24 Lymphocytes % 48.5 % (20.0-50.0) 09/24/17 17:24 Monocytes % 7.4 % (2.0-10.0) 09/24/17 17:24 Eosinophils % 2.6 % (0.0-5.0) 09/24/17 17:24 Basophils % 0.9 % (0.0-2.0) 09/24/17 17:24 Sodium 135 mEq/L (136-145) L 09/24/17 17:24 Potassium 4.5 mEq/L (3.5-5.1) 09/24/17 17:24 Chloride 103 mEq/L (98-107) 09/24/17 17:24 Carbon Dioxide 31.1 mEq/L (21.0-31.0) H 09/24/17 17:24 Anion Gap 5.4 (7.0-16.0) L 09/24/17 17:24 BUN 29 mg/dL (7-25) H 09/24/17 17:24 Creatinine 0.8 mg/dL (0.6-1.2) 09/24/17 17:24 Est GFR ( Amer) > 60.0 ml/min (>90) 09/24/17 17:24 Est GFR (Non-Af Amer) > 60.0 ml/min 09/24/17 17:24 BUN/Creatinine Ratio 36.3 09/24/17 17:24 Glucose 94 mg/dL (70-105) 09/24/17 17:24 Hemoglobin A1c % 4.8 % (4.0-6.0) 09/24/17 17:24 Calcium 10.1 mg/dL (8.6-10.3) 09/24/17:24 Total Bilirubin 0.5 mg/dL (0.3-1.0) 09/24/17 17:24 AST 49 U/L (13-39) H 09/24/17 17:24 ALT 60 U/L (7-52) H 09/24/17 17:24 Alkaline Phosphatase 88 U/L (34-104) 09/24/17 17:24 Total Protein 7.1 gm/dL (6.0-8.3) 09/24/17 17:24 Albumin 3.6 gm/dL (3.7-5.3) L 09/24/17:24 Globulin 3.5 gm/dL 09/24/17 17:24 Albumin/Globulin Ratio 1.0 (1.0-1.8) 09/24/17 17:24 Triglycerides 77 mg/dL (<150) 09/24/17 17:24 Cholesterol 150 mg/dL (<200) 09/24/17 17:24 LDL Cholesterol Direct 80 mg/dL (75-193) 09/24/17 17:24 HDL Cholesterol 53 mg/dL (23-92) 09/24/17 17:24 TSH 0.65 uIU/ml (0.34-5.60) 09/24/17 17:24 Urine Source CLEAN C 09/24/17 17:10 Urine Color YELLOW 09/24/17 17:10 Urine Clarity CLEAR (CLEAR) 09/24/17 17:10 Urine pH 6.5 (4.6 - 8.0) 09/24/17 17:10 Ur Specific [place] 1.020 (1.005-1.030) 09/24/17 17:10 Urine Protein NEGATIVE mg/dL (NEGATIVE) 09/24/17 17:10 Urine Glucose (UA) NEGATIVE mg/dL (NEGATIVE) 09/24/17 17:10 Urine Ketones NEGATIVE mg/dL (NEGATIVE) 09/24/17 17:10 Urine Blood NEGATIVE (NEGATIVE) 09/24/17 17:10 Urine Nitrate NEGATIVE (NEGATIVE) 09/24/17 17:10 Urine Bilirubin NEGATIVE (NEGATIVE) 09/24/17 17:10 Urine Urobilinogen 0.2 E.U./dL (0.2 - 1.0) 09/24/17 17:10 Ur Leukocyte Esterase NEGATIVE (NEGATIVE) 09/24/17 17:10 Urine RBC NONE SEEN /hpf (0-5) 09/24/17 17:10 Urine WBC NONE SEEN /hpf (0-5) 09/24/17 17:10 Ur Epithelial Cells NONE SEEN /lpf (FEW) 09/24/17 17:10 Urine Bacteria NONE SEEN /hpf (NONE SEEN) 09/24/17 17:10 Salicylates < 25.0 mg/L (30.0-100.0) L 09/24/17 17:24 Urine Opiates Screen NEGATIVE (NEGATIVE) 09/24/17 17:10 Urine Methadone Screen NEGATIVE (NEGATIVE) 09/24/17 17:10 Acetaminophen < 10.0 ug/mL (10.0-30.0) L 09/24/17 17:24 Ur Barbiturates Screen NEGATIVE (NEGATIVE) 09/24/17 17:10 Ur Tricyclics Screen NEGATIVE (NEGATIVE) 09/24/17 17:10 Ur Phencyclidine Scrn NEGATIVE (NEGATIVE) 09/24/17 17:10 Amphetamines Screen NEGATIVE (NEGATIVE) 09/24/17 17:10 U Methamphetamines Scrn NEGATIVE (NEGATIVE) 09/24/17 17:10 U Benzodiazepines Scrn POSITIVE (NEGATIVE) H 09/24/17 17:10 U Cocaine Metab Screen NEGATIVE (NEGATIVE) 09/24/17 17:10 U Cannabinoids Screen NEGATIVE (NEGATIVE) 09/24/17 17:10 Ethyl Alcohol < 10 mg/dL (0-10) 09/24/17 17:24 RPR NONREACTIVE (NONREACTIVE) 09/24/17 17:24 - Physical Exam Vitals and I&O: Vital Signs Temp 98.0 F 10/08/17 06:38 Pulse 78 10/08/17 06:38 Resp 20 10/08/17 06:38 BP 147/90 10/08/17 06:38 Pulse Ox 99 10/08/17 06:38 Intake & Output 10/07/17 10/08/17 10/08/17 18:59 06:59 18:59 Intake Total 900 420 Balance 900 420 Intake: Oral 900 420 Other: # Voids 4 2 # Bowel Movements 1 0 Active Medications: Current Medications Acetaminophen (Tylenol) 650 mg PO Q4HR PRN PRN Reason: Mild Pain / Temp above 100 Stop: 11/23/17 22:09 Last Admin: 10/06/17 16:32 Dose: 650 mg Al Hydrox/Mg Hydrox/Simethicone (Maalox) 30 ml PO Q4HR PRN PRN Reason: GI DISTRESS Stop: 11/23/17 22:09 Last Admin: 10/02/17 03:07 Dose: 30 ml Docusate Sodium (Colace) 100 mg PO BID STEFANY Stop: 11/24/17 08:59 Last Admin: 10/08/17 08:38 Dose: 100 mg Lorazepam (Ativan) 0.5 mg PO Q4HR PRN; Protocol PRN Reason: Anxiety Stop: 10/24/17 22:09 Last Admin: 10/07/17 18:48 Dose: 0.5 mg Magnesium Hydroxide (Milk Of Magnesia) 30 ml PO HS PRN PRN Reason: Constipation Multivitamins/Vitamin C (Theragran) 1 tab PO DAILY STEFANY Stop: 11/24/17 08:59 Last Admin: 10/08/17 08:38 Dose: 1 tab Quetiapine Fumarate (Seroquel) 150 mg PO HS STEFANY Stop: 12/03/17 18:54 Last Admin: 10/07/17 21:40 Dose: Not Given Zolpidem Tartrate (Ambien) 5 mg PO HS PRN PRN Reason: Insomnia Stop: 11/23/17 22:09 Last Admin: 10/07/17 21:43 Dose: 5 mg General: Alert, Other (Confused, not oriented) HEENT: Atraumatic Neck: Supple Cardiovascular: Regular rate Lungs: Clear to auscultation Abdomen: Bowel sounds Extremities: Other (No edema) Neurological: Other (Unstable gait) Skin: Other (Warm and dry) Psych/Mental Status: Other (Confused, not oriented) - Procedures Procedures: Procedures Procedure Code Date ABDOMINAL PROCTOPEXY 48.75 04/05/15 CORRECT RECTAL PROLAPSE 85581 04/05/15 OTHER GROUP THERAPY 94.44 04/13/15 Assessment/Plan - Problem List Patient Problems: All Active Problems Agitation (Acute) R45.1 Alzheimer's disease (Acute) G30.9 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 Dx Psychosis, Schizophrenia. - Plan Plan: Patient under Psychiatric care. Will continue with some SNF meds. Nutritional Asmnt/Malnutr-PDOC - Dietary Evaluation Malnutrition Findings (Please click <Entered> for more info): Nutritional Asmnt/Malnutrition Start: 09/27/17 16: 52 Text: Status: Complete Freq: Document 09/27/17 16:54 GSUN (Rec: 09/27/17 17:02 [email or web address]) Nutritional Asmnt/Malnutrition Patient General Information Nutritional Screening Moderate Risk Diagnosis Psychosis NOS r/o schizoaffective disorder Pertinent Medical Hx/Surgical Hx Weakness, psychosis Subjective Information 72 year old female from [facility]. Per nursing notes, pt is delusional. Spoke to pt in caty in rec room during meal time. Pt was talkative, a poor historian, off topic, did not provide much nutrition hx. Observed pt finished >75% of meal during visit without chew /swallowing difficulties noted . Pt apepared overweight, no muscle/fat wasting noted. Pt is edentulous on ground, stated has dentures but unable to state where, questionable. No nutritinoal concerns per nursing staff. Current Diet Order/ Nutrition Support [facility] soft ground Pertinent Medications Colace, MOM, Theragran, Seroquel Pertinent Labs 09/24: reviewed Nutritional Hx/Data Height 1.75 m Height (Calculated Centimeters) 175.3 Current Weight (lbs) 84.368 kg Weight (Calculated Kilograms) 84.4 Weight (Calculated Grams) 37822.2 [place] Body Weight 145 Recent Weight Change No Weight Status Overweight GI Symptoms Food Allergies No Usual diet at home [facility]: ground, regular Skin Integrity/Comment: Jonel 17. Current %PO Good (75-100%) Estimated Nutritional Goals Calories/Kcals/Kg IBW 145lb/65.9kg Kcals Calculated 1648-1977kcal (25-30kcal/kg) Protein Calculated 66g (1g/kg) Fluid: ml 1648-1977ml (1ml/kcal) Nutritional Problem 1. Problem Problem No nutritnioal problem at this time. Intervention/Recommendation Comments 1. Continue with current diet order. 2. Nursing staff to record %PO of every meal. Expected Outcomes/Goals Expected Outcomes/Goals 1. PO intake to meet at least 75% of estimated nutritinoal needs.
--- NOTE | 2017-10-08 11:10 | Discharge Summary ---
DATE OF DISCHARGE: 10/08/2017 IDENTIFYING DATA: The patient is a 72-year-old woman, resident of the [facility]. Information obtained by directly interviewing the patient as well as reviewing the admission papers. JUSTIFICATION OF HOSPITALIZATION: The patient is admitted on a voluntary basis in view of her acute agitation and psychosis. CHIEF COMPLAINT: "I need to get these babies out." DIAGNOSIS AT THE TIME OF ADMISSION: AXIS I: 1A.: Psychotic disorder, not otherwise specified. 1B: Rule out schizoaffective disorder. AXIS II: None. AXIS III: As per Dr. Sutton. HISTORY OF PRESENT ILLNESS: Please refer the 09/25/2017 dictation done by me. Physical examination was done by Dr. Sutton and is noted to be significant for no major medical problems. HOSPITAL COURSE AND RESPONSE TO TREATMENT: The patient has been observed on inpatient unit, provided supportive psychotherapy. The patient has been closely monitored and encouraged to participate in the groups and verbalize the concerns. The patient has been very paranoid and has been fixated with idea that there are too many babies that needs to come out and the patient has initially being given the Seroquel, but did not worked out. The patient has been increased on the Seroquel to 150 mg. In the meantime, Haldol Decanoate was given to continue the psychosis. The patient started to do fairly well and hence patient was discharged on 10/08/2017 with recommendation that she is going to be seeking treatment on an outpatient basis. MENTAL STATUS EXAMINATION AT THE TIME OF DISCHARGE: The patient's mood is noted to be less irritable. Affect is appropriate. The patient is still preoccupied with the and the ____ she needs to get from outside. The patient has not been presenting with any threats to harm self or others and hence patient was discharged. DIAGNOSES AT THE TIME OF DISCHARGE: AXIS I: Schizoaffective disorder. AXIS II: None. AXIS III: None. AFTERCARE PLAN: [facility]. JOB# [id number]
== END 2017-10-08 16:00 | disposition home or self-care (01) | DRG 885 ==
LOC: ER 16:34 → GERO 18:30
PROVIDERS: ADMIT Psychiatry & Neurology Psychiatry; ATTEND Psychiatry & Neurology Psychiatry
DX: F25.9 Schizoaffective disorder, unspecified (principal); I12.0 Hypertensive chronic kidney disease with stage 5 chronic kidney disease or end stage renal disease; R56.9 Unspecified convulsions; N18.6 End stage renal disease; F29 Unspecified psychosis not due to a substance or known physiological condition; E78.5 Hyperlipidemia, unspecified; K21.9 Gastro-esophageal reflux disease without esophagitis; Z83.3 Family history of diabetes mellitus; Z82.49 Family history of ischemic heart disease and other diseases of the circulatory system; Z90.49 Acquired absence of other specified parts of digestive tract; Z79.899 Other long term (current) drug therapy; Z88.5 Allergy status to narcotic agent
CPT/HCPCS: 36415-UA; 80053-TC; 80061-TC; 80307; 80320-TC; 80329-TC; 81001-TC; 83036-90; 84443-TC; 85025-TC; 86592-TC; 90899; 93005; G0410; J1200; J1630; J1631; J7051; Z7610

== ENCOUNTER 2018-06-25 20:50 | Inpatient (IN) | payer MEDICARE, OTHER ==
--- NOTE | 2018-06-25 22:33 | ED Physician Chart ---
ED Chief Complaint/HPI - Patient Information Date Seen:: 06/25/18 Time Seen:: 21:10 Chief Complaint:: Agitation History of Present Illness:: onset x 2 days of agitation and aggressive behavior; no report of trauma, H/As, SIs, neck pain, C/P, SOB, Abd. Pain, A/N/V/D/C, fever, chills, or urinary s/s Allergies:: Allergies Allergy/AdvReac Type Severity Reaction Status Date / Time codeine Allergy Unknown Verified 06/25/18 22:06 Vitals:: Vital Signs - 8 hr 06/25/18 21:10 Temp 97.2 F HR 62 RR 18 BP 144/90 O2 Sat % 95 Historian:: Patient, EMS Review:: Nurse's Note Reviewed, Old Chart Reviewed, EMS run form Reviewed ED Review of Systems - Review of Systems General/Constitutional: No fever, No chills, No weight loss, No weakness, No diaphoresis, No edema, No loss of appetite Skin: No skin lesions, No rash, No bruising Head: No headache, No light-headedness Eyes: No loss of vision, No pain, No diplopia ENT: No earache, No nasal drainage, No sore throat, No tinnitus Neck: No neck pain, No swelling, No thyromegaly, No stiffness, No mass noted Cardio Vascular: No chest pain, No palpitations, No PND, No orthopnea, No edema Pulmonary: No SOB, No cough, No sputum, No wheezing GI: No nausea, No vomiting, No diarrhea, No pain, No melena, No hematochezia, No constipation, No hematemesis G/U: No dysuria, No frequency, No hematuria, No nacturia [employer] Application Consultant: No vaginal discharge, No abnormal vaginal bleed, No contraction Musculoskeletal: No bone or joint pain, No back pain, No muscle pain Endocrine: No polyuria, No polydipsia Psychiatric: Prior psych history, Depression, Anxiety, No suicidal ideation, No homicidal ideation, No auditory hallucination, No visual hallucination Hematopoietic: No bruising, No lymphadenopathy Allergic/Immuno: No urticaria, No angioedema Neurological: No syncope, No focal symptoms, No weakness, No paresthesia, No headache, No seizure, No dizziness, Confusion, No vertigo ED Past Medical History - Past Medical History Obtainable: Yes Past Medical History: HTN, Dyslipidemia, PUD/GERD, Seizures, Arthritis, Dementia Family History: HTN Social History: Non Smoker, No Alcohol, No Drug Use, Single, Care Facility Surgical History: None Psychiatricy History: Schizophrenia, Bipolar, Dementia Medication: Reviewed Family Medical History - Family Member Father History Unknown: Yes Ethnicity: Unknown Living Status: Unknown Hx Family Coronary Artery Disease: Yes Hx Family Seizures: Yes ED Physical Exam - Physical Examination General/Constitutional: Awake, Well-developed, well-nourished, Alert, No distress, GCS 15, Non-toxic appearing, Ambulatory Head: Atraumatic Eyes: Lids, conjuctiva normal, PERRL, EOMI Skin: Nl inspection, No rash, No skin lesions, No ecchymosis, Well hydrated, No lymphadenopathy ENMT: External ears, nose nl, TM canals nl, Nasal exam nl, Lips, teeth, gums nl , Oropharynx nl, Tonsils nl Neck: Nontender, Full ROM w/o pain, No JVD, No nuchal rigidity, No bruit, No mass, No stridor Respiratory: Nl effort/Exclusion, Clear to Auscultation, No Wheeze/Rhonchi/Rales Cardio Vascular: RRR, No murmur, gallop, rubs, NL S1 S2, Carotid/Femoral/Distal pulses equal bilaterally GI: No tenderness/rebounding/guarding, No organomegaly, No hernia, Normal BS's, Nondistended, No mass/bruits, No McBurney tenderness : No CVA tenderness Extremities: No tenderness or effusion, Full ROM, normal strength in all extremities, No edema, Normal digits & nails Neuro/Psych: Alert/oriented, DTR's symmetric, Normal sensory exam, Normal motor strength, Judgement/insight normal, Mood normal, Normal gait, No focal deficits Other Neuro/Psych comments:: + Psychomotor Agitation; no SIs; Mood/Affect: Labile Misc: Normal back, No paraspinal tenderness ED Labs/Radiology/EKG Results - Lab Results Comments:: Reviewed - EKG Interpretations EKG Time:: 21:20 Rate & Rhythm: 62; NSR Comments:: non-specific st-t changes ED Septic Shock - . Is Septic Shock (SBP<90, OR Lactate>4 mmol\L) present?: No - <6hrs of presentation: Vital Signs: Vital Signs - 8 hr 07/25/18 21:10 Temp 97.2 F HR 62 RR 18 BP 144/90 O2 Sat % 95 ED Reassessment (Disposition) - Reassessment Reassessment Condition:: Improved - Diagnosis Diagnosis:: Agitation; Medical Clearance; Psychosis; Dementia; Schizophrenia - Aftercare/Follow up Instructions Aftercare/Follow-Up Instructions:: Counseled pt regarding lab results/diagnosis & need follow up, Counseled pt & family regarding lab results/diagnosis & need follow up - Patient Disposition Discharge/Transfer:: Acute Care w/in this hosp Admitted to:: [facility] Condition at Disposition:: Stable, Improved
[2018-06-25 22:48] LABS: WHITE BLOOD COUNT 5.2 Th/cmm (4.8-10.8)
[2018-06-25 22:50] LABS: HEMATOCRIT 46.1 % (41.0-60); HEMOGLOBIN 15.6 gm/dL (12-16); MEAN CELL VOLUME 95.6 fl (81-100); MEAN CORPUSCULAR HEMOGLOBIN 32.3 pg (27.0-31.0); MEAN CORPUSCULAR HGB CONC 33.8 pg (28.0-36.0); MEAN PLATELET VOLUME 9.4 fl; PLATELET COUNT 112 Th/cmm (150-400); RED BLOOD COUNT 4.82 Mil/cmm (3.80-5.20); RED CELL DISTRIBUTION WIDTH 13.1 % (11.5-20.0)
[2018-06-25 22:59] LABS: ALB/GLOB RATIO 1.1 (1.0-1.8); ALKALINE PHOSPHATASE 102 U/L (34-104); ANION GAP 11.2 (7.0-16.0); BILIRUBIN,TOTAL 0.6 mg/dL (0.3-1.0); BUN - UREA NITROGEN 29 mg/dL (7-25); CALCIUM SERUM 10.6 mg/dL (8.6-10.3); CARBON DIOXIDE 27.7 mEq/L (21.0-31.0); CHLORIDE 103 mEq/L (98-107); CHOLESTEROL 162 mg/dL (<200); CREATININE - SERUM 0.9 mg/dL (0.6-1.2); GFR AFRICAN-AMERICAN > 60.0 ml/min (>90); GFR NON AFRICAN-AMERICAN > 60.0 ml/min; GLUCOSE 96 mg/dL (70-105); HDL -HIGH DENSITY LIPOPROTEIN 45 mg/dL (23-92); POTASSIUM SERUM 3.9 mEq/L (3.5-5.1); SALICYLATES (ASPIRIN) < 25.0 mg/L (30.0-100.0); SGOT 40 U/L (13-39); SGPT/ALT 45 U/L (7-52); SODIUM SERUM 138 mEq/L (136-145); TOTAL PROTEIN,SERUM 7.5 gm/dL (6.0-8.3); TRIGLYCERIDES 90 mg/dL (<150)
[2018-06-25 23:11] LABS: BAND NEUTROPHILE 3 % (0-10); EOSINOPHIL 2 % (0-5); LYMPHOCYTE 52 % (20-50); MONOCYTE 7 % (2-10); NEUTROPHILS 36 % (40-80); PLATELET ESTIMATE ADEQUATE (NORMAL)
[2018-06-25 23:37] VITALS: BP 135/73
[2018-06-25] MEDS ORDERED: Maalox 30 mL Cup PO PRN (23:37)
[2018-06-25] MEDS ORDERED: Magnesium Hydroxide (MOM) 30 mL UDC PO PRN (23:37)
[2018-06-26] MEDS ORDERED: HYPROMELLOSE EACH EYE PRN (00:06)
[2018-06-26] MEDS ORDERED: DEXTRAN EACH EYE PRN (00:06)
[2018-06-26] MEDS ORDERED: Magnesium Hydroxide (MOM) 30 mL UDC PO PRN (00:06)
[2018-06-26 07:33] LABS: ACETAMINOPHEN < 10.0 ug/mL (10.0-30.0)
[2018-06-26] MEDS ORDERED: Multivitamin Tab PO SCH (09:00)
--- NOTE | 2018-06-26 14:58 | Psychiatric Evaluation ---
DATE OF SERVICE: 06/25/2018 PSYCHIATRIC EVALUATION AND MENTAL STATUS EXAMINATION IDENTIFYING DATA: The patient is a 72-year-old woman, resident of [facility]. Information obtained by directly interviewing the patient as well as reviewing the admission papers and they are reliable. JUSTIFICATION OF HOSPITALIZATION: The patient is admitted here on a voluntary basis in view of her agitation and aggressive behavior. CHIEF COMPLAINT: "I do not know why they have to bring me in here." HISTORY OF PRESENT ILLNESS: This is one of multiple psychiatric hospitalizations for this patient who was hospitalized here in 2013 and on the day of the hospitalization, the patient is reported to have been out of control, screaming and yelling and has been aggressive towards the staff and they could not contain her. Review of the chart indicated that the patient has been on Depakote, but the patient is getting easily upset and angry at this time. PAST PSYCHIATRIC HISTORY: The patient had been treated for schizophrenia in the past. MEDICAL HISTORY: Physical examination is requested to be done by Dr. Cid. SUBSTANCE ABUSE HISTORY: None. PHYSICAL OR SEXUAL ABUSE HISTORY: None. LEGAL PROBLEMS: None at this time. STRENGTH AND ASSETS: The patient is motivated. MENTAL STATUS EXAMINATION: The patient is a 72-year-old woman looking her stated age, superficially cooperative. Eye contact is poor. Mood is noted to be irritable. Affect is constricted. Insight and judgment at this time are noted to be impaired. Impulse control is noted to be limited. The patient is reported to be aggressive and has been going after the staff members. The patient has no insight into her illness. The patient has short-term memory deficits. Long-term memory seems to be fair at this time. The patient's behavior is a clear danger to others. Paranoia is noted, but the patient denies any command hallucinations. The patient is asking that she needs to talk to Rani. The patient has been requesting for the director of social services all the time. DIAGNOSTIC IMPRESSION: AXIS I: A. Schizophrenia, chronic paranoid type by history. B. Dementia and behavioral changes secondary to it. AXIS II: None. AXIS III: As per Dr. Cid. IMMEDIATE TREATMENT PLAN: The patient is going to be observed on the inpatient unit, provided with supportive psychotherapy. The patient is going to be continued with the current medications and I encouraged to participate in the groups and verbalize the concerns rather than to act out. ESTIMATED LENGTH OF STAY: 3-5 days. DISCHARGE CRITERIA: When the patient is no longer a threat to self or others and be able to cope up with the stress. [facility]# [id number]
[2018-06-26] MEDS: Polyvinyl Alcohol Ophth Soln 15 mL Bottle EACH EYE SCH ×2 (16:50→21:54)
--- NOTE | 2018-06-26 17:15 | Consultation ---
DATE OF CONSULTATION: INTERNAL MEDICINE CONSULT REFERRING PHYSICIAN: Dr. Mcgarry. REASON FOR CONSULT: Medical management. HISTORY OF PRESENT ILLNESS: The patient is a 72-year-old lady with history of schizoaffective disorder, history of polyneuropathy, generalized muscle weakness, essential hypertension, hyperlipidemia, epilepsy, ataxia, irritable bowel syndrome, anxiety disorder, who was admitted to [facility] secondary to aggressive behavior and agitation. She is currently residing in the [facility]. She is somewhat confused and not able to give me any good history, but denies any medical problems. She also denies any chest pain, shortness of breath or pain at this time. She does complain of lower extremity edema. PAST MEDICAL HISTORY: As noted above. PAST SURGICAL HISTORY: She states that she had what sounds to be like an inguinal hernia repair many years ago. FAMILY HISTORY: Likely noncontributory to this admission. SOCIAL HISTORY: She denies any tobacco, alcohol or illicit drug usage. She lives at [facility]. ALLERGIES: ALLERGIC TO CODEINE. OUTPATIENT MEDICATIONS: Zyprexa 5 mg q.a.m. and 12.5 at bedtime, Tylenol 650 q.4 p.r.n., Dextran/Hypromellose artificial eye drops, Nuedexta 20/10 q.12 hours, Depakote 125 q.12, docusate sodium 100 b.i.d., gabapentin 200 b.i.d., lorazepam 0.5 q.6 p.r.n. for anxiety, milk of magnesia p.r.n., multivitamins daily. REVIEW OF SYSTEMS: A good review of systems was not able to be done given the patient's condition. PHYSICAL EXAMINATION: VITAL SIGNS: Temperature 98.2, she has been afebrile, pulse 73, BP 135/73, respirations 19-20, sats 97-100% on room air. GENERAL: She is well-developed, well-nourished female, currently sitting up in a wheelchair, appears to be comfortable, speaking in full sentences. She is awake but is disoriented to time and place. HEAD AND NECK: Normocephalic, atraumatic. Pupils reactive to light. Extraocular movements are intact. Oropharynx moist and clear. CARDIOVASCULAR: Regular rate and rhythm with distant sounds. LUNGS: Diminished at the bases, but otherwise clear to auscultation. ABDOMEN: Soft, supple, nontender, nondistended, normoactive bowel sounds. EXTREMITIES: In her lower extremities, there is 1+ pitting edema up to the mid shins. There is some dermatitic changes on both lower extremities. LABORATORY AND DIAGNOSTIC DATA: CBC was essentially within normal limits. BUN 29, otherwise chemistry was within normal limits. Calcium 10.6. LFTs were within normal limits. Troponin negative x 1 set. Toxicology was essentially within normal limits. ASSESSMENT: 1. Acute psych decompensation with acute psychosis and aggressive behavior. 2. History of schizoaffective disorder. 3. History of essential hypertension. 4. History of hyperlipidemia. 5. History of peripheral neuropathy with generalized muscle weakness. 6. History of seizure disorder/epilepsy. 7. History of ataxia. 8. History of irritable bowel syndrome. PLAN: The patient has been admitted to [facility] for psych management and care. The patient will be kept on all the medications as scheduled. She will be placed on clonidine p.r.n. for SBP greater than 160. JOB# [id number]
[2018-06-26] MEDS: Dextromethorphan/Quinidine 20mg/10mg Cap PO SCH (20:40)
[2018-06-27] MEDS: Polyvinyl Alcohol Ophth Soln 15 mL Bottle EACH EYE SCH ×5 (03:55→22:00)
[2018-06-27] MEDS: Multivitamin Tab PO SCH (09:12)
[2018-06-27] MEDS: Dextromethorphan/Quinidine 20mg/10mg Cap PO SCH ×2 (09:12→20:54)
--- NOTE | 2018-06-27 22:38 | Consultation ---
DATE OF CONSULTATION: 06/27/2018 REFERRING PHYSICIAN: Izabel Mcgarry M.D. TYPE OF CONSULTATION: Psychology. HISTORY OF PRESENT ILLNESS: The patient is a 72-year-old female. The patient is a resident of [facility]. The following is by review of the medical record and by patient self-report. The patient is being admitted due to increased agitation and aggressive behavior. According to record review, the staff at the patient's facility report that she has been out of control with screaming and yelling episodes as well as aggressive behavior towards the staff. The patient's behavior had been unredirectable and therefore, she was transferred here for stabilization. The patient did not answer the question about experiencing suicidal ideation. The patient was easily agitated and irritable at the time of the clinical interview. The patient responded intermittently throughout the evaluation. PAST MEDICAL HISTORY: Please see history and physical by Dr. Cid. PAST PSYCHIATRIC HISTORY: The patient has a history of schizophrenia, chronic, paranoid type. According to available records, the patient is under the care of a psychiatrist at her facility. SUBSTANCE ABUSE HISTORY: The patient denies any history. PSYCHOSOCIAL HISTORY: The patient did not answer questions about occupational or educational history or gnosticist affiliation. The patient did not answer questions about family relationships or marital status. The patient did not answer questions about history of physical or sexual abuse. The patient stated no current legal problems. MENTAL STATUS EXAMINATION: The patient appears to be her stated age. The patient's attitude is superficially cooperative. Eye contact is poor. Speech is pressured. Mood is irritable. Affect is constricted. Thought process shows to have loose associations and is markedly tangential. The patient denied any suicidal ideation, plan or intention. The patient denied any auditory or visual hallucinations. There is possible paranoid ideation present. The patient's behavior has been difficult to redirect according to the staff. Impulse control is poor. The patient's concentration is poor. The patient was unable to perform the memory assessment. The patient's sensorium is alert and oriented to self only. The patient repeatedly asked to talk to someone named Rani; however, the patient was unable to identify this person. The patient did not participate in the interpretation of proverbs. Insight is poor. Judgment is poor. DIAGNOSTIC IMPRESSION: AXIS I: 1. History of schizophrenia, chronic, paranoid type. 2. Dementia with behavioral disturbance. AXIS II: Deferred. AXIS III: Per Dr. Cid. TREATMENT PLAN: The patient has been seen by Dr. Mcgarry for psychiatric evaluation and for the management of the patient's psychotropic medications. We will provide supportive psychotherapy to include reality orientation, reality differentiation and reality integration. We will provide motivational enhancement for the patient to become compliant and stay compliant with all aspects of her care and treatment. We will provide opportunities for the patient to verbally contract for safety on a daily basis. We will encourage the patient to be able to demonstrate emotional and self-regulation prior to her discharge versus acting out. We will also provide coping mechanisms for chronic severe mental illness. Thank you, Dr. Mcgarry for this consult and the opportunity to participate with you in this patient's care. JOB# [id number] [email or web address]
[2018-06-28] MEDS: Polyvinyl Alcohol Ophth Soln 15 mL Bottle EACH EYE SCH ×4 (04:00→21:29)
[2018-06-28] MEDS: Multivitamin Tab PO SCH (09:14)
[2018-06-28] MEDS: Dextromethorphan/Quinidine 20mg/10mg Cap PO SCH ×2 (09:14→20:40)
--- NOTE | 2018-06-28 09:28 | Progress Notes ---
DATE: 06/27/2018 SUBJECTIVE: Staff was spoken to. The patient is interviewed. Mood is noted to be irritable. Affect is constricted. The patient's insight and judgment is noted to be still impaired. Impulse control is noted to be poor. Coping skills are also noted to be very poor. The patient has been getting easily irritable and angry. The patient has been getting easily upset. Coping skills at this time are noted to be very poor. No side effects to the medications are noted and the patient needs to be redirected. ASSESSMENT: The patient is still impulsive. PLAN: To continue the patient with supportive therapy, encouraged the patient to verbalize the concerns rather than to act out. JOB# [id number]
--- NOTE | 2018-06-28 19:11 | Progress Notes ---
DATE: 06/28/2018 SUBJECTIVE: Staff was spoken to. The patient is interviewed. Mood is noted to be irritable. Affect is constricted. The patient has paranoid delusions, but the patient denies any command hallucinations. No side effects to the medications are noted. The patient has been perseverating and the patient has been intrusive today. The patient is currently on the valproic acid 125 mg twice a day and for her impulsivity. PLAN: To gradually increase the dose to 2 mg twice a day and follow the patient with the supportive therapy. [facility]# [id number]
[2018-06-29] MEDS: Polyvinyl Alcohol Ophth Soln 15 mL Bottle EACH EYE SCH ×4 (04:07→22:35)
[2018-06-29] MEDS: Dextromethorphan/Quinidine 20mg/10mg Cap PO SCH ×2 (09:51→20:36)
[2018-06-29] MEDS: Multivitamin Tab PO SCH (09:53)
--- NOTE | 2018-06-29 21:06 | Progress Notes ---
DATE: 06/29/2018 PSYCHIATRIC PROGRESS NOTE SUBJECTIVE: Staff was spoken to. The patient is interviewed. Mood is noted to be irritable. Affect is constricted. Coping skills are noted to be poor. The patient has been still somatically preoccupied and has been saying that her feet are very red and that needs to be taken care of right away. The staff nurse has been informed of the patient's concern and the primary care physician is going to be made aware of it. ASSESSMENT: The patient is still impulsive and paranoid. PLAN: To continue the patient with the current medications and followup. JOB# [id number]
[2018-06-30] MEDS: Polyvinyl Alcohol Ophth Soln 15 mL Bottle EACH EYE SCH ×4 (03:55→22:02)
[2018-06-30] MEDS: Dextromethorphan/Quinidine 20mg/10mg Cap PO SCH ×2 (08:30→21:20)
[2018-06-30] MEDS: Multivitamin Tab PO SCH (08:30)
--- NOTE | 2018-06-30 08:45 | General Progress Note ---
Subjective - Review of Systems Service Date: 06/30/18 Subjective: Patient is confused Objective - Results Result Diagrams: 06/25/18 22:25 06/25/18 22:25 Recent Labs: Laboratory Last Values WBC 5.2 Th/cmm (4.8-10.8) 06/25/18 22:25 RBC 4.82 Mil/cmm (3.80-5.20) 06/25/18 22:25 Hgb 15.6 gm/dL (12-16) 06/25/18 22:25 Hct 46.1 % (41.0-60) 06/25/18 22:25 MCV 95.6 fl (81-100) 06/25/18 22:25 MCH 32.3 pg (27.0-31.0) H 06/25/18 22: MCHC Differential 33.8 pg (28.0-36.0) 06/25/18 22:25 RDW 13.1 % (11.5-20.0) 06/25/18: Plt Count 112 Th/cmm (150-400) L 06/25/18 22:25 MPV 9.4 fl 06/25/18 22:25 Add Manual Diff YES 06/25/18 22:25 Band Neutrophils % 3 % (0-10) 06/25/18 22:25 Neutrophils (Manual) 36 % (40-80) L 06/25/18 22:25 Lymphocytes 52 % (20-50) H 06/25/18 22:25 Monocytes 7 % (2-10) 06/25/18 22:25 Eosinophils 2 % (0-5) 06/25/18 22:25 Platelet Estimate ADEQUATE (NORMAL) 06/25/18 22:25 Sodium 138 mEq/L (136-145) 06/25/18 22:25 Potassium 3.9 mEq/L (3.5-5.1) 06/25/18 22:25 Chloride 103 mEq/L (98-107) 06/25/18 22:25 Carbon Dioxide 27.7 mEq/L (21.0-31.0) 06/25/18 22:25 Anion Gap 11.2 (7.0-16.0) 06/25/18 22:25 BUN 29 mg/dL (7-25) H 06/25/18 22:25 Creatinine 0.9 mg/dL (0.6-1.2) 06/25/18 22:25 Est GFR ( Amer) > 60.0 ml/min (>90) 06/25/18 22:25 Est GFR (Non-Af Amer) > 60.0 ml/min 06/25/18 22:25 BUN/Creatinine Ratio 32.2 06/25/18 22:25 Glucose 96 mg/dL (70-105) 06/25/18 22:25 Hemoglobin A1c % 5.0 % (4.0-6.0) 06/25/18 22:25 Calcium 10.6 mg/dL (8.6-10.3) H 06/25/18 22:25 Total Bilirubin 0.6 mg/dL (0.3-1.0) 06/25/18 22:25 AST 40 U/L (13-39) H 06/25/18 22:25 ALT 45 U/L (7-52) 06/25/18 22:25 Alkaline Phosphatase 102 U/L (34-104) 06/25/18:25 Troponin I 0.03 ng/mL (0.01-0.05) 06/25/18 22:25 Total Protein 7.5 gm/dL (6.0-8.3) 06/25/18 22:25 Albumin 4.0 gm/dL (3.7-5.3) 06/25/18 22:25 Globulin 3.5 gm/dL 06/25/18 22:25 Albumin/Globulin Ratio 1.1 (1.0-1.8) 06/25/18 22:25 Triglycerides 90 mg/dL (<150) 06/25/18 22:25 Cholesterol 162 mg/dL (<200) 06/25/18 22:25 LDL Cholesterol Direct 90 mg/dL (75-193) 06/25/18 22:25 HDL Cholesterol 45 mg/dL (23-92) 06/25/18 22:25 TSH 0.72 uIU/ml (0.34-5.60) 06/25/18 22:25 Salicylates < 25.0 mg/L (30.0-100.0) L 06/25/18 22:25 Acetaminophen < 10.0 ug/mL (10.0-30.0) L 06/25/18 22:25 Valproic Acid 26.5 ug/mL (50.0-100.0) L 06/25/18 22:25 Ethyl Alcohol < 10 mg/dL (0-10) 06/25/18 22:25 RPR NONREACTIVE (NONREACTIVE) 06/25/18 22:25 - Physical Exam Vitals and I&O: Vital Signs Temp 97.8 F 06/30/18 04:42 Pulse 67 06/30/18 04:42 Resp 19 06/30/18 04:42 BP 145/70 06/30/18 04:42 Pulse Ox 97 06/30/18 04:42 Intake & Output 06/29/18 06/30/18 06/30/18 18:59 06:59 18:59 Intake Total 480 Balance 480 Intake: Oral 480 Other: # Voids 2 Active Medications: Current Medications Acetaminophen (Tylenol) 650 mg PO Q4HR PRN PRN Reason: Mild Pain / Temp above 100 Stop: 08/25/18 00:05 Al Hydrox/Mg Hydrox/Simethicone (Maalox) 30 ml PO Q4HR PRN PRN Reason: GI DISTRESS Stop: 08/24/18 23:36 Artificial Tears (Artificial Tears Ophth Soln) 2 drop EACH EYE Q6H ST[facility] Stop: 08/25/18 09:59 Last Admin: 06/30/18 03:55 Dose: 2 drop Dextromethorphan/Quinidine (Nuedexta 20mg-10mg) 1 cap PO Q12HR ST[facility] Stop: 08/25/18 08:59 Last Admin: 06/30/18 08:30 Dose: 1 cap Divalproex Sodium (Depakote Dr) 125 mg PO Q12HR [facility]; Protocol Stop: 08/25/18 08:59 Last Admin: 06/30/18 08:29 Dose: 125 mg Docusate Sodium (Colace) 100 mg PO BID STEFANY Stop: 08/25/18 08:59 Last Admin: 06/30/18 08:29 Dose: 100 mg Gabapentin (Neurontin) 300 mg PO BID STEFANY Stop: 08/25/18 08:59 Last Admin: 06/30/18 08:29 Dose: 300 mg Lorazepam (Ativan) 0.5 mg PO Q6HR PRN; Protocol PRN Reason: Anxiety Stop: 08/25/18 00:05 Last Admin: 06/27/18 09:15 Dose: 0.5 mg Magnesium Hydroxide (Milk Of Magnesia) 30 ml PO HS PRN PRN Reason: Constipation Magnesium Hydroxide (Milk Of Magnesia) 30 ml PO HS PRN PRN Reason: Constipation Stop: 08/25/18 00:05 Multivitamins/Vitamin C (Theragran) 1 tab PO DAILY STEFANY Stop: 08/25/18 08:59 Last Admin: 06/30/18 08:30 Dose: 1 tab Zolpidem Tartrate (Ambien) 5 mg PO HS PRN PRN Reason: Insomnia Stop: 08/24/18 23:54 Last Admin: 06/29/18 20:36 Dose: 5 mg General: Alert HEENT: Atraumatic Neck: Supple Cardiovascular: Regular rate Lungs: Clear to auscultation Abdomen: Bowel sounds Extremities: Other (No edema) Neurological: Other (Unstable gait) Skin: Other Psych/Mental Status: Other (Confused) - Procedures Procedures: Procedures Procedure Code Date ABDOMINAL PROCTOPEXY 48.75 04/05/15 CORRECT RECTAL PROLAPSE 98769 04/05/15 OTHER GROUP THERAPY 94.44 04/13/15 Assessment/Plan - Assessment Assessment: Patient is confused, in no acute distress. Dx: Increased in agitation, Schizophrenia, Polyneuropathy, General muscle weakness, HTN, Seizure disorder, Ataxia, IBS. - Plan Plan: Patient is under care, continue with SNF meds. Will continue to monitor. Nutritional Asmnt/Malnutr-PDOC - Dietary Evaluation Malnutrition Findings (Please click <Entered> for more info): Nutritional Asmnt/Malnutrition Start: 06/28/18 10: 51 Text: Status: Complete Freq: Protocol: Document 06/28/18 11:06 TONY (Rec: 06/28/18 11:14 TONY CAMPOS- FNS1) Nutritional Asmnt/Malnutrition Patient General Information Nutritional Screening High Risk Diagnosis psychosis Pertinent Medical Hx/Surgical Hx epilepsy, ataxia, anxiety disorder, generalized muscle weakness, HTN Subjective Information Pt sitting in wheelchair scooting around, asked if she could go to the activity room to play a game. Reported good appetite and no nutrition concerns at this time. Current Diet Order/ Nutrition Support regular with ground texture Pertinent Medications Maalox, colace, MOM, theragran Pertinent Labs 06/25: Na 138, K 3.9, Cl 103, CO2 27.7, BUN 29, Cr 0.9, Ca 10.6, glucose 96 Nutritional Hx/Data Height 1.65 m Height (Calculated Centimeters) 165.1 Current Weight (lbs) 63.503 kg Weight (Calculated Kilograms) 63.5 Weight (Calculated Grams) 47734.9 Body Mass Index (BMI) 23.3 Weight Status Approriate GI Symptoms GI Symptoms None Last BM 06/28 Cultural/Ethnic/Druze Belief unknow Usual diet at home regular Skin Integrity/Comment: michael score 18, intact Current %PO Good (75-100%) Estimated Nutritional Goals BEE in Kcals: Using Current wt Calories/Kcals/Kg 25-30kcals/kg Kcals Calculated 1600-1920kcals/day Protein: Using Current wt Protein g/kg/kg Protein Calculated 64g/day Fluid: ml 1600-1920ml/day (1ml/kcal) Nutritional Problem 1. Problem Problem No nutrition diagnosis at this time Intervention/Recommendation Comments Recommend continuing Regular ground texture Expected Outcomes/Goals Expected Outcomes/Goals PO intake >75% of meals
--- NOTE | 2018-06-30 14:11 | Progress Notes ---
DATE: 06/30/2018 SUBJECTIVE: Staff was spoken to. The patient is interviewed. Mood is noted to be irritable. Affect is constricted. Continues to be very paranoid. The patient has been having difficult time to cope with the stress. No side effects to the medications are noted. The patient has been testing the limits and has been somatically preoccupied and is stating that there is something wrong with her feet. The nurse has informed to bring it to the attention of the primary care physician to address the issue of her concerns with the feet. In view of the patient's preoccupation, it is decided to add a low dose of the Seroquel for paranoia and follow the patient up with the supportive therapy. [facility]# [id number]
[2018-07-01] MEDS: Polyvinyl Alcohol Ophth Soln 15 mL Bottle EACH EYE SCH ×4 (04:37→22:10)
[2018-07-01] MEDS: Multivitamin Tab PO SCH (09:10)
[2018-07-01] MEDS: Dextromethorphan/Quinidine 20mg/10mg Cap PO SCH ×2 (09:10→22:04)
--- NOTE | 2018-07-02 04:01 | Progress Notes ---
DATE: 07/01/2018 SUBJECTIVE: Staff was spoken to. The patient is interviewed. Mood is noted to be dysphoric. Insight and judgment are noted to be still impaired. Impulse control is poor. The patient has paranoia. The patient is currently on the Depakote and a low dose of the Seroquel has been started. The patient has been able to tolerate. ASSESSMENT: The patient is still psychotic. PLAN: To continue the patient with the supportive therapy and followup. JOB# [id number]
[2018-07-02] MEDS: Polyvinyl Alcohol Ophth Soln 15 mL Bottle EACH EYE SCH ×4 (04:16→21:36)
--- NOTE | 2018-07-02 09:09 | General Progress Note ---
Subjective - Review of Systems Service Date: 07/02/18 Subjective: Patient is confused Objective - Results Result Diagrams: 06/25/18 22:25 06/25/18 22:25 Recent Labs: Laboratory Last Values WBC 5.2 Th/cmm (4.8-10.8) 06/25/18 22:25 RBC 4.82 Mil/cmm (3.80-5.20) 06/25/18 22:25 Hgb 15.6 gm/dL (12-16) 06/25/18 22:25 Hct 46.1 % (41.0-60) 06/25/18 22:25 MCV 95.6 fl (81-100) 06/25/18 22:25 MCH 32.3 pg (27.0-31.0) H 06/25/18 22: MCHC Differential 33.8 pg (28.0-36.0) 06/25/18 22: RDW 13.1 % (11.5-20.0) 06/25/18: Plt Count 112 Th/cmm (150-400) L 06/25/18 22:25 MPV 9.4 fl 06/25/18 22:25 Add Manual Diff YES 06/25/18 22:25 Band Neutrophils % 3 % (0-10) 06/25/18 22:25 Neutrophils (Manual) 36 % (40-80) L 06/25/18 22:25 Lymphocytes 52 % (20-50) H 06/25/18 22:25 Monocytes 7 % (2-10) 06/25/18 22: Eosinophils 2 % (0-5) 06/25/18 22:25 Platelet Estimate ADEQUATE (NORMAL) 06/25/18 22:25 Sodium 138 mEq/L (136-145) 06/25/18 22:25 Potassium 3.9 mEq/L (3.5-5.1) 06/25/18 22:25 Chloride 103 mEq/L (98-107) 06/25/18 22:25 Carbon Dioxide 27.7 mEq/L (21.0-31.0) 06/25/18 22:25 Anion Gap 11.2 (7.0-16.0) 06/25/18 22:25 BUN 29 mg/dL (7-25) H 06/25/18 22:25 Creatinine 0.9 mg/dL (0.6-1.2) 06/25/18 22:25 Est GFR ( Amer) > 60.0 ml/min (>90) 06/25/18 22:25 Est GFR (Non-Af Amer) > 60.0 ml/min 06/25/18 22:25 BUN/Creatinine Ratio 32.2 06/25/18 22:25 Glucose 96 mg/dL (70-105) 06/25/18 22:25 Hemoglobin A1c % 5.0 % (4.0-6.0) 06/25/18 22:25 Calcium 10.6 mg/dL (8.6-10.3) H 06/25/18 22:25 Total Bilirubin 0.6 mg/dL (0.3-1.0) 06/25/18 22:25 AST 40 U/L (13-39) H 06/25/18 22:25 ALT 45 U/L (7-52) 06/25/18 22:25 Alkaline Phosphatase 102 U/L (34-104) 06/25/18:25 Troponin I 0.03 ng/mL (0.01-0.05) 06/25/18 22:25 Total Protein 7.5 gm/dL (6.0-8.3) 06/25/18 22:25 Albumin 4.0 gm/dL (3.7-5.3) 06/25/18 22:25 Globulin 3.5 gm/dL 06/25/18 22:25 Albumin/Globulin Ratio 1.1 (1.0-1.8) 06/25/18 22:25 Triglycerides 90 mg/dL (<150) 06/25/18 22:25 Cholesterol 162 mg/dL (<200) 06/25/18 22:25 LDL Cholesterol Direct 90 mg/dL (75-193) 06/25/18 22:25 HDL Cholesterol 45 mg/dL (23-92) 06/25/18 22:25 TSH 0.72 uIU/ml (0.34-5.60) 06/25/18 22:25 Salicylates < 25.0 mg/L (30.0-100.0) L 06/25/18 22:25 Acetaminophen < 10.0 ug/mL (10.0-30.0) L 06/25/18 22:25 Valproic Acid 26.5 ug/mL (50.0-100.0) L 06/25/18 22:25 Ethyl Alcohol < 10 mg/dL (0-10) 06/25/18 22:25 RPR NONREACTIVE (NONREACTIVE) 06/25/18 22:25 - Physical Exam Vitals and I&O: Vital Signs Temp 97.8 F 07/02/18 07:35 Pulse 59 07/02/18 07:35 Resp 19 07/02/18 07:35 BP 122/70 07/02/18 07:35 Pulse Ox 95 07/02/18 07:35 Intake & Output 07/01/18 07/02/18 07/02/18 18:59 06:59 18:59 Intake Total 500 Balance 500 Intake: Oral 500 Other: # Voids 4 # Bowel Movements 0 Active Medications: Current Medications Acetaminophen (Tylenol) 650 mg PO Q4HR PRN PRN Reason: Mild Pain / Temp above 100 Stop: 08/25/18 00:05 Al Hydrox/Mg Hydrox/Simethicone (Maalox) 30 ml PO Q4HR PRN PRN Reason: GI DISTRESS Stop: 08/24/18 23:36 Artificial Tears (Artificial Tears Ophth Soln) 2 drop EACH EYE Q6H [facility] Stop: 08/25/18 09:59 Last Admin: 07/02/18 04:16 Dose: Not Given Dextromethorphan/Quinidine (Nuedexta 20mg-10mg) 1 cap PO Q12HR STEFANY Stop: 08/25/18 08:59 Last Admin: 07/01/18 22:04 Dose: 1 cap Divalproex Sodium (Depakote Dr) 125 mg PO Q12HR STEFANY; Protocol Stop: 08/25/18 08:59 Last Admin: 07/01/18 22:04 Dose: 125 mg Docusate Sodium (Colace) 100 mg PO BID STEFANY Stop: 08/25/18 08:59 Last Admin: 07/01/18 16:12 Dose: Not Given Gabapentin (Neurontin) 300 mg PO BID STEFANY Stop: 08/25/18 08:59 Last Admin: 07/01/18 16:12 Dose: 300 mg Lorazepam (Ativan) 0.5 mg PO Q6HR PRN; Protocol PRN Reason: Anxiety Stop: 08/25/18 00:05 Last Admin: 06/27/18 09:15 Dose: 0.5 mg Magnesium Hydroxide (Milk Of Magnesia) 30 ml PO HS PRN PRN Reason: Constipation Stop: 08/25/18 00:05 Multivitamins/Vitamin C (Theragran) 1 tab PO DAILY STEFANY Stop: 08/25/18 08:59 Last Admin: 07/01/18 09:10 Dose: 1 tab Quetiapine Fumarate (Seroquel) 12.5 mg PO HS STEFANY; Protocol Stop: 08/29/18 20:59 Last Admin: 07/01/18 22:04 Dose: 12.5 mg Zolpidem Tartrate (Ambien) 5 mg PO HS PRN PRN Reason: Insomnia Stop: 08/24/18 23:54 Last Admin: 07/01/18 22:05 Dose: 5 mg General: Alert HEENT: Atraumatic Neck: Supple Cardiovascular: Regular rate Lungs: Clear to auscultation Abdomen: Bowel sounds Extremities: Other (No edema) Neurological: Other (Unstable gait) Skin: Other Psych/Mental Status: Other (Confused) - Procedures Procedures: Procedures Procedure Code Date ABDOMINAL PROCTOPEXY 48.75 04/05/15 CORRECT RECTAL PROLAPSE 94438 04/05/15 OTHER GROUP THERAPY 94.44 04/13/15 Assessment/Plan - Assessment Assessment: Patient is confused, in no acute distress. Dx: Increased in agitation, Schizophrenia, Polyneuropathy, General muscle weakness, HTN, Seizure disorder, Ataxia, IBS. - Plan Plan: Patient is under care, continue with SNF meds. Will continue to monitor. Nutritional Asmnt/Malnutr-PDOC - Dietary Evaluation Malnutrition Findings (Please click <Entered> for more info): Nutritional Asmnt/Malnutrition Start: 06/28/18 10: 51 Text: Status: Complete Freq: Protocol: Document 06/28/18 11:06 TONY (Rec: 06/28/18 11:14 TONY CAMPOS- FNS1) Nutritional Asmnt/Malnutrition Patient General Information Nutritional Screening High Risk Diagnosis psychosis Pertinent Medical Hx/Surgical Hx epilepsy, ataxia, anxiety disorder, generalized muscle weakness, HTN Subjective Information Pt sitting in wheelchair scooting around, asked if she could go to the activity room to play a game. Reported good appetite and no nutrition concerns at this time. Current Diet Order/ Nutrition Support regular with ground texture Pertinent Medications Maalox, colace, MOM, theragran Pertinent Labs 06/25: Na 138, K 3.9, Cl 103, CO2 27.7, BUN 29, Cr 0.9, Ca 10.6, glucose 96 Nutritional Hx/Data Height 1.65 m Height (Calculated Centimeters) 165.1 Current Weight (lbs) 63.503 kg Weight (Calculated Kilograms) 63.5 Weight (Calculated Grams) 12999.9 Body Mass Index (BMI) 23.3 Weight Status Approriate GI Symptoms GI Symptoms None Last BM 06/28 Cultural/Ethnic/Mosque Belief unknow Usual diet at home regular Skin Integrity/Comment: michael score 18, intact Current %PO Good (75-100%) Estimated Nutritional Goals BEE in Kcals: Using Current wt Calories/Kcals/Kg 25-30kcals/kg Kcals Calculated 1600-1920kcals/day Protein: Using Current wt Protein g/kg/kg Protein Calculated 64g/day Fluid: ml 1600-1920ml/day (1ml/kcal) Nutritional Problem 1. Problem Problem No nutrition diagnosis at this time Intervention/Recommendation Comments Recommend continuing Regular ground texture Expected Outcomes/Goals Expected Outcomes/Goals PO intake >75% of meals
[2018-07-02] MEDS: Multivitamin Tab PO SCH (09:26)
[2018-07-02] MEDS: Dextromethorphan/Quinidine 20mg/10mg Cap PO SCH ×2 (09:26→21:35)
--- NOTE | 2018-07-02 23:48 | Progress Notes ---
DATE: 07/02/2018 PSYCHIATRIC PROGRESS NOTE PROGRESS IN THE UNIT: Staff was spoken to. The patient is interviewed. Mood is noted to be irritable. Affect is constricted. Insight and judgment at this time are noted to be improving. Impulse control seems to be fair. The patient has been stating that I need to contact the facility so that she can leave tomorrow morning. The patient's aggression seems to be coming under control, but the patient has paranoia. No side effects to the medications are noted. ASSESSMENT: The patient's impulsivity is coming under control. PLAN: To increase the dose on Seroquel to 25 mg and follow the patient with supportive therapy. JOB# [id number]
[2018-07-03] MEDS: Polyvinyl Alcohol Ophth Soln 15 mL Bottle EACH EYE SCH ×3 (04:54→17:53)
[2018-07-03] MEDS: Dextromethorphan/Quinidine 20mg/10mg Cap PO SCH (09:29)
[2018-07-03] MEDS: Multivitamin Tab PO SCH ×2 (09:30→09:31)
--- NOTE | 2018-07-03 20:18 | Progress Notes ---
DATE: 07/03/2018 SUBJECTIVE: Staff was spoken to. The patient is interviewed. Mood is noted to be anxious. The patient has been able to verbalize the concerns rather than to act out. Mood swings are under control. No aggressive behavior is noted. ASSESSMENT: The patient is stabilizing. PLAN: To discharge the patient today for followup on outpatient basis. JOB# [id number]
== END 2018-07-03 19:40 | DRG 885 ==
LOC: ER 20:50 → GERO2 23:18
PROVIDERS: ADMIT Psychiatry & Neurology Psychiatry; ATTEND Psychiatry & Neurology Psychiatry
DX: F20.0 Paranoid schizophrenia (principal); F03.91 Unspecified dementia, unspecified severity, with behavioral disturbance; I10 Essential (primary) hypertension; E78.5 Hyperlipidemia, unspecified; K21.9 Gastro-esophageal reflux disease without esophagitis; M19.90 Unspecified osteoarthritis, unspecified site; G62.9 Polyneuropathy, unspecified; G40.909 Epilepsy, unspecified, not intractable, without status epilepticus; F41.9 Anxiety disorder, unspecified; R27.0 Ataxia, unspecified; K58.9 Irritable bowel syndrome, unspecified; M62.81 Muscle weakness (generalized); Z88.5 Allergy status to narcotic agent; Z82.49 Family history of ischemic heart disease and other diseases of the circulatory system; Z86.69 Personal history of other diseases of the nervous system and sense organs
CPT/HCPCS: 36415-UA; 80053-TC; 80061-TC; 80164-TC; 80320-TC; 80329-TC; 83036-90; 84443-TC; 84484-TC; 85007-TC; 85025-TC; 86592-TC; 93005; Z7610

== ENCOUNTER 2019-06-26 14:04 | Inpatient (IN) | payer MEDICARE, OTHER ==
[2019-06-26 15:30] LABS: % BASOPHILS 1.4 % (0.0-2.0); % EOSINOPHILS 2.3 % (0.0-5.0); % LYMPHOCYTES 40.1 % (20.0-50.0); % MONOCYTES 8.5 % (2.0-10.0); % NEUTROPHILS 47.7 % (40.0-80.0); BASOPHILE ABSOLUTE 0.1 Th/cumm (0-0.2); EOSINOPHILE ABSOLUTE 0.2 Th/cmm (0.1-0.4); HEMATOCRIT 40.8 % (41.0-60); HEMOGLOBIN 13.6 gm/dL (12-16); LYMPHOCYTE ABSOLUTE 3.1 Th/cmm (1.5-3.0); MEAN CELL VOLUME 97.6 fl (81-100); MEAN CORPUSCULAR HEMOGLOBIN 32.4 pg (27.0-31.0); MEAN CORPUSCULAR HGB CONC 33.2 pg (28.0-36.0); MONOCYTE ABSOLUTE 0.7 Th/cmm (0.3-1.0); NEUTROPHILE ABSOLUTE 3.6 Th/cmm (1.8-8.0); PLATELET COUNT 101 Th/cmm (150-400); RED BLOOD COUNT 4.18 Mil/cmm (3.80-5.20); RED CELL DISTRIBUTION WIDTH 12.7 % (11.5-20.0); WHITE BLOOD COUNT 7.7 Th/cmm (4.8-10.8)
[2019-06-26 15:46] LABS: ALB/GLOB RATIO 1.1 (1.0-1.8); ALBUMIN 3.3 gm/dL (3.7-5.3); ALKALINE PHOSPHATASE 67 U/L (34-104); ANION GAP 12.4 (7.0-16.0); BILIRUBIN,TOTAL 0.5 mg/dL (0.3-1.0); BUN - UREA NITROGEN 43 mg/dL (7-25); CALCIUM SERUM 9.8 mg/dL (8.6-10.3); CARBON DIOXIDE 25.4 mEq/L (21.0-31.0); CHLORIDE 110 mEq/L (98-107); CHOLESTEROL 142 mg/dL (<200); CREATININE - SERUM 0.9 mg/dL (0.6-1.2); GLUCOSE 114 mg/dL (70-105); HDL -HIGH DENSITY LIPOPROTEIN 32 mg/dL (23-92); POTASSIUM SERUM 3.8 mEq/L (3.5-5.1); SGOT 118 U/L (13-39); SGPT/ALT 82 U/L (7-52); SODIUM SERUM 144 mEq/L (136-145); TOTAL PROTEIN,SERUM 6.3 gm/dL (6.0-8.3); TRIGLYCERIDES 109 mg/dL (<150)
[2019-06-26 15:49] LABS: ACETAMINOPHEN < 10.0 ug/mL (10.0-30.0)
--- NOTE | 2019-06-26 17:19 | ED Physician Chart ---
ED Chief Complaint/HPI - Patient Information Date Seen:: 06/26/19 Time Seen:: 14:15 Chief Complaint:: Agitation History of Present Illness:: onset x 3 days of agitation and aggressive behavior; no report of trauma, SIs, H /As, neck pain, C/P, SOB, cough, Abd. Pain, or urinary s/s Allergies:: Allergies Allergy/AdvReac Type Severity Reaction Status Date / Time codeine Allergy Unknown Verified 06/26/19 14:15 Vitals:: Vital Signs - 8 hr 06/26/19 14:15 Temp 98.5 F HR 85 RR 18 BP 125/61 O2 Sat % 99 Historian:: Patient, EMS Review:: Nurse's Note Reviewed, Old Chart Reviewed, EMS run form Reviewed <Efrain Reaves - Last Filed: 06/26/19 17:37> - Patient Information Allergies:: Allergies Allergy/AdvReac Type Severity Reaction Status Date / Time codeine Allergy Unknown Verified 06/26/19 14:15 Vitals:: Vital Signs - 8 hr 06/26/19 06/26/19 14:15 17:29 Temp 98.5 F 98.1 F HR 85 72 RR 18 21 BP 125/61 145/78 O2 Sat % 99 96 <Kwesi Hernandez - Last Filed: 06/26/19 21:34> ED Review of Systems - Review of Systems General/Constitutional: No fever, No chills, No weight loss, No weakness, No diaphoresis, No edema, No loss of appetite Skin: No skin lesions, No rash, No bruising Head: No headache, No light-headedness Eyes: No loss of vision, No pain, No diplopia ENT: No earache, No nasal drainage, No sore throat, No tinnitus Neck: No neck pain, No swelling, No thyromegaly, No stiffness, No mass noted Cardio Vascular: No chest pain, No palpitations, No PND, No orthopnea, No edema Pulmonary: No SOB, No cough, No sputum, No wheezing GI: No nausea, No vomiting, No diarrhea, No pain, No melena, No hematochezia, No constipation, No hematemesis G/U: No dysuria, No frequency, No hematuria, No nacturia Section Cutter: No vaginal discharge, No abnormal vaginal bleed, No contraction Musculoskeletal: No bone or joint pain, No back pain, No muscle pain Endocrine: No polyuria, No polydipsia Psychiatric: Prior psych history, Depression, Anxiety, No suicidal ideation, No homicidal ideation, No auditory hallucination, No visual hallucination Hematopoietic: No bruising, No lymphadenopathy Allergic/Immuno: No urticaria, No angioedema Neurological: No syncope, No focal symptoms, No weakness, No paresthesia, No headache, Seizure, No dizziness, Confusion, No vertigo <Efrain Reaves - Last Filed: 06/26/19 17:37> ED Past Medical History - Past Medical History Obtainable: Yes Past Medical History: HTN, PUD/GERD, Seizures, Dementia Family History: HTN Social History: Non Smoker, No Alcohol, No Drug Use, Single, Care Facility Surgical History: None Psychiatricy History: Depression, Schizophrenia, Bipolar, Dementia Medication: Reviewed <Efrain Reaves Filed: 06/26/19 17:37> Family Medical History - Family Member Father History Unknown: Yes Ethnicity: Unknown Living Status: Unknown Hx Family Coronary Artery Disease: Yes Hx Family Seizures: Yes <Efrain Reaves Filed: 06/26/19 17:37> ED Physical Exam - Physical Examination General/Constitutional: Awake, Well-developed, well-nourished, Alert, No distress, GCS 15, Non-toxic appearing, Ambulatory Head: Atraumatic Eyes: Lids, conjuctiva normal, PERRL, EOMI Skin: Nl inspection, No rash, No skin lesions, No ecchymosis, Well hydrated, No lymphadenopathy ENMT: External ears, nose nl, TM canals nl, Nasal exam nl, Lips, teeth, gums nl , Oropharynx nl, Tonsils nl Neck: Nontender, Full ROM w/o pain, No JVD, No nuchal rigidity, No bruit, No mass, No stridor Respiratory: Nl effort/Exclusion, Clear to Auscultation, No Wheeze/Rhonchi/Rales Cardio Vascular: No murmur, gallop, rubs, NL S1 S2, Carotid/Femoral/Distal pulses equal bilaterally Other Cardio Vascular comments:: Irregular Rhythm GI: No tenderness/rebounding/guarding, No organomegaly, No hernia, Normal BS's, Nondistended, No mass/bruits, No McBurney tenderness, Rectum exam nl : No CVA tenderness Extremities: No tenderness or effusion, Full ROM, normal strength in all extremities, No edema, Normal digits & nails Neuro/Psych: Alert/oriented, DTR's symmetric, Normal sensory exam, Normal motor strength, Judgement/insight normal, Mood normal, Normal gait, No focal deficits Other Neuro/Psych comments:: + Psychomotor Agitation; no SIs; Mood/Affect: Labile Misc: Normal back, No paraspinal tenderness <Efrain Reaves - Last Filed: 06/26/19 17:37> ED Labs/Radiology/EKG Results - Lab Results Results: Laboratory Tests 06/26/19 06/26/19 06/26/19 15:05 15:05 15:05 WBC 7.7 RBC 4.18 Hgb 13.6 Hct 40.8 L MCV 97.6 MCH 32.4 H MCHC Differential 33.2 RDW 12.7 Plt Count 101 L MPV 8.8 Neutrophils % 47.7 Lymphocytes % 40.1 Monocytes % 8.5 Eosinophils % 2.3 Basophils % 1.4 Sodium 144 Potassium 3.8 Chloride 110 H Carbon Dioxide 25.4 Anion Gap 12.4 BUN 43 H Creatinine 0.9 Est GFR ( Amer) TNP Est GFR (Non-Af Amer) TNP BUN/Creatinine Ratio 47.8 Glucose 114 H Calcium 9.8 Total Bilirubin 0.5 AST 118 H ALT 82 H Alkaline Phosphatase 67 Troponin I Total Protein 6.3 Albumin 3.3 L Globulin 3.0 Albumin/Globulin Ratio 1.1 Triglycerides 109 Cholesterol 142 LDL Cholesterol Direct 89 HDL Cholesterol 32 TSH 0.23 L Salicylates < 25.0 L Acetaminophen < 10.0 L Valproic Acid Ethyl Alcohol < 10 06/26/19 06/26/19 15:05 15:05 WBC RBC Hgb Hct MCV MCH MCHC Differential RDW Plt Count MPV Neutrophils % Lymphocytes % Monocytes % Eosinophils % Basophils % Sodium Potassium Chloride Carbon Dioxide Anion Gap BUN Creatinine Est GFR ( Amer) Est GFR (Non-Af Amer) BUN/Creatinine Ratio Glucose Calcium Total Bilirubin AST ALT Alkaline Phosphatase Troponin I 0.14 H* D Total Protein Albumin Globulin Albumin/Globulin Ratio Triglycerides Cholesterol LDL Cholesterol Direct HDL Cholesterol TSH Salicylates Acetaminophen Valproic Acid 33.8 L Ethyl Alcohol Comments:: Reviewed - EKG Interpretations EKG Time:: 17:29 Rate & Rhythm: 70; NSR Comments:: Bigeminy; T-Wave Inversions; non-specific st-t changes <Efrain Reaves - Last Filed: 06/26/19 17:37> - Lab Results Results: Laboratory Tests 06/26/19 06/26/19 06/26/19 15:05 15:05 15:05 WBC 7.7 RBC 4.18 Hgb 13.6 Hct 40.8 L MCV 97.6 MCH 32.4 H MCHC Differential 33.2 RDW 12.7 Plt Count 101 L MPV 8.8 Neutrophils % 47.7 Lymphocytes % 40.1 Monocytes % 8.5 Eosinophils % 2.3 Basophils % 1.4 Sodium 144 Potassium 3.8 Chloride 110 H Carbon Dioxide 25.4 Anion Gap 12.4 BUN 43 H Creatinine 0.9 Est GFR ( Amer) TNP Est GFR (Non-Af Amer) TNP BUN/Creatinine Ratio 47.8 Glucose 114 H Calcium 9.8 Total Bilirubin 0.5 AST 118 H ALT 82 H Alkaline Phosphatase 67 Troponin I Total Protein 6.3 Albumin 3.3 L Globulin 3.0 Albumin/Globulin Ratio 1.1 Triglycerides 109 Cholesterol 142 LDL Cholesterol Direct 89 HDL Cholesterol 32 TSH 0.23 L Salicylates < 25.0 L Acetaminophen < 10.0 L Valproic Acid Ethyl Alcohol < 10 06/26/19 06/26/19 15:05 15:05 WBC RBC Hgb Hct MCV MCH MCHC Differential RDW Plt Count MPV Neutrophils % Lymphocytes % Monocytes % Eosinophils % Basophils % Sodium Potassium Chloride Carbon Dioxide Anion Gap BUN Creatinine Est GFR ( Amer) Est GFR (Non-Af Amer) BUN/Creatinine Ratio Glucose Calcium Total Bilirubin AST ALT Alkaline Phosphatase Troponin I 0.14 H* D Total Protein Albumin Globulin Albumin/Globulin Ratio Triglycerides Cholesterol LDL Cholesterol Direct HDL Cholesterol TSH Salicylates Acetaminophen Valproic Acid 33.8 L Ethyl Alcohol <Kwesi Hernandez - Last Filed: 06/26/19 21:34> ED Assessment - Assessment General Assessment: Patient to be admitted to telemetry because of an elevated troponin. EKG showed a normal sinus rhythm with a rate of 80 and poor R-wave progression. Repeat EKG showed a rate of 70 with PACs and poor R-wave progression. No ST or T-wave changes to suggest an acute myocardial infarction. <Kwesi Hernandez - Last Filed: 06/26/19 21:34> ED Septic Shock - . Is Septic Shock (SBP<90, OR Lactate>4 mmol\L) present?: No - <6hrs of presentation: Vital Signs: Vital Signs - 8 hr 06/26/19 14:15 Temp 98.5 F HR 85 RR 18 BP 125/61 O2 Sat % 99 <Efrain Reaves - Last Filed: 06/26/19 17:37> - . Is Septic Shock (SBP<90, OR Lactate>4 mmol\L) present?: No - <6hrs of presentation: Vital Signs: Vital Signs - 8 hr 06/26/19 06/26/19 14:15 17:29 Temp 98.5 F 98.1 F HR 85 72 RR 18 21 BP 125/61 145/78 O2 Sat % 99 96 <Kwesi Hernandez - Last Filed: 06/26/19 21:34> ED Reassessment (Disposition) - Reassessment Reassessment Condition:: Improved - Diagnosis Diagnosis:: Agitation; Medical Clearance; Psychosis; Schizophrenia; Bipolar Disorder; Elevated troponin; Myocardial Ischemia; Cardiac Arrythmias <Efrain Reaves - Last Filed: 06/26/19 17:37> - Patient Disposition Admitted to:: Telemetry Spoke to:: Larry Tejeda Admitting Medical Physician:: Larry Tejeda Condition at Disposition:: Stable, Unchanged <Kwesi Hernandez - Last Filed: 06/26/19 21:34>
[2019-06-27 02:15] VITALS: BP 138/77
--- NOTE | 2019-06-27 10:36 | Diagnostic Imaging Report ---
CHEST X-RAY: AP view INDICATION: Elevated troponin COMPARISON: 04/05/2015 FINDINGS: Congestive changes are noted with left basal density. Cardiomegaly is noted with atherosclerosis. Degenerative changes of the spine are noted. Postsurgical changes of the right clavicle are again noted. IMPRESSION: Congestive changes with left basal density which may represent a small left effusion with possible infiltrate in this region also. Cardiomegaly and atherosclerosis.
--- NOTE | 2019-06-27 10:43 | Diagnostic Imaging Report ---
CHEST X-RAY: 2 views INDICATION: CHF COMPARISON: 06/26/2019 FINDINGS: Chronic lung changes are noted. Small left effusion is noted. Cardiomegaly is noted with with atherosclerosis. Age-indeterminate possible spinal compression deformities are noted. Degenerative changes of the spine are noted. Old right rib fractures are noted. IMPRESSION: Small left effusion suspected. Faint infiltrate at the left base cannot be excluded. Increased interstitial lung markings suggestive chronic changes. A marginal degree of congestion cannot be excluded. Cardiomegaly and atherosclerotic vascular disease.
[2019-06-27 18:31] LABS: % BASOPHILS 0.1 % (0.0-2.0); % EOSINOPHILS 2.9 % (0.0-5.0); % LYMPHOCYTES 49.5 % (20.0-50.0); % MONOCYTES 9.1 % (2.0-10.0); % NEUTROPHILS 38.4 % (40.0-80.0); EOSINOPHILE ABSOLUTE 0.2 Th/cmm (0.1-0.4); HEMATOCRIT 41.9 % (41.0-60); LYMPHOCYTE ABSOLUTE 3.3 Th/cmm (1.5-3.0); MEAN CELL VOLUME 97.7 fl (81-100); MEAN CORPUSCULAR HEMOGLOBIN 32.7 pg (27.0-31.0); MEAN CORPUSCULAR HGB CONC 33.4 pg (28.0-36.0); MONOCYTE ABSOLUTE 0.6 Th/cmm (0.3-1.0); NEUTROPHILE ABSOLUTE 2.5 Th/cmm (1.8-8.0); PLATELET COUNT 103 Th/cmm (150-400); RED BLOOD COUNT 4.29 Mil/cmm (3.80-5.20); RED CELL DISTRIBUTION WIDTH 12.9 % (11.5-20.0); WHITE BLOOD COUNT 6.6 Th/cmm (4.8-10.8)
[2019-06-27 18:47] LABS: ALB/GLOB RATIO 1.1 (1.0-1.8); ALBUMIN 3.4 gm/dL (3.7-5.3); ALKALINE PHOSPHATASE 65 U/L (34-104); ANION GAP 11.1 (7.0-16.0); BILIRUBIN,TOTAL 0.6 mg/dL (0.3-1.0); BUN - UREA NITROGEN 36 mg/dL (7-25); CALCIUM SERUM 9.7 mg/dL (8.6-10.3); CARBON DIOXIDE 29.8 mEq/L (21.0-31.0); CHLORIDE 105 mEq/L (98-107); CREATININE - SERUM 0.8 mg/dL (0.6-1.2); GLUCOSE 115 mg/dL (70-105); POTASSIUM SERUM 3.9 mEq/L (3.5-5.1); SGOT 88 U/L (13-39); SGPT/ALT 79 U/L (7-52); SODIUM SERUM 142 mEq/L (136-145); TOTAL PROTEIN,SERUM 6.4 gm/dL (6.0-8.3)
[2019-06-28] MEDS ORDERED: Magnesium Hydroxide (MOM) 30 mL UDC PO PRN (05:26)
--- NOTE | 2019-06-28 06:49 | History & Physical ---
ADMIT DATE: 06/27/2019 CHIEF COMPLAINT: Agitation. HISTORY OF PRESENT ILLNESS: The patient is a 73-year-old female with past medical history of schizophrenia, psychosis, weakness, and agitation. The patient is agitated and very aggressive. On initial evaluation, the patient was afebrile and WBC count was 7700. The chest x-ray showed pneumonia. The patient was started on Levaquin in the ER. The patient did resumed her medication. PAST MEDICAL HISTORY: schizophrenia, psychosis, weakness, MEDICATIONS: See medication reconciliation sheet. Antibiotic mckenna, none. ALLERGIES: NKDA. SOCIAL HISTORY: The patient lives at nursing facility. No history of smoking, alcohol, or drug use. TRAVEL HISTORY: None. FAMILY HISTORY: Not available. REVIEW OF SYSTEMS: The patient is a poor historian, unable to provide any meaningful history. PHYSICAL EXAMINATION: GENERAL: The patient is comfortable lying in the bed, not in acute distress. VITAL SIGNS: Current vital signs shows temperature of 97.6, pulse of 71, respirations 20, and blood pressure of 138/81. HEENT: Head is normocephalic, atraumatic. Oral cavity is moist, pink tongue. Eyes: Pallor is present, no icterus. Pupils PERRLA, EOMI. NECK: Supple. No JVD. No carotid bruit. Trachea in midline. CHEST: Bilateral breath sounds. No crackles or wheezing. HEART: S1, S2 within normal limits. Regular rhythm. No murmur. No gallop. ABDOMEN: Soft, nontender, and nondistended. Bowel sounds present. LABORATORY DATA: Current lab shows WBC count is 6600, hemoglobin is 14, hematocrit is 41.9, platelets are 103,000, neutrophils are 47.7%. IMPRESSION: 1. Leukocytosis. 2. Pneumonia. 3. Psychosis. 4. Chronic obstructive pulmonary disease exacerbation. 5. History of Schizophrenia. 6. CHF RECOMMENDATION AND PLAN: 1. Continue home meds.. 2. Antibiotic mckenna, start Levaquin p.o. and lasix. JOB# [id number] ALFREDO
[2019-06-28] MEDS: Multivitamin Tab PO SCH (08:19)
--- NOTE | 2019-06-28 15:16 | Consultation ---
DATE OF CONSULTATION: 06/28/2019 IDENTIFYING INFORMATION: The patient is a 73-year-old female. HISTORY OF PRESENT ILLNESS: This patient with a history of schizophrenia, psychosis, weakness, agitation, or very aggressive. The patient was seen by the medical doctor, Dr. Tejeda and the patient was a very poor historian and unable to provide any meaningful conversation. She was completely naked. When I talked to her, she was nodding her head yes, but then she would not give me any details. She has been on Seroquel 25 mg at bedtime, She is also on Lasix and Levaquin. PAST PSYCHIATRIC HISTORY: Schizophrenia, psychosis. MEDICAL HISTORY: THE PATIENT IS ALLERGIC TO DEPAKOTE. The patient have leukocytosis, pneumonia, and COPD. Antibiotic was initiated. FAMILY AND SOCIAL HISTORY: The patient came from a nursing facility. The patient unable to give any meaningful conversation or participate in her care. She with a history of psychosis, unable to get much information from her she is , , or single, she said, no. She could not give information however, further details. Her long and short term memory is poor, unable to tell me the date, where she is, why she is here, unable to even say a complete sentence. Her insight and judgment is impaired. IMPRESSION: Psychosis, not otherwise specified, rule out schizophrenic illness. MEDICAL DIAGNOSES: As per medical doctor. PLAN: I would recommend continue with the Seroquel. Medication may need to be adjusted. Thank you very much for allowing me to participate in the care of this most interesting lady. I saw her. Covering for Dr. Charles. JOB# [id number] MTDD
--- NOTE | 2019-06-29 03:29 | Infectious Disease Prog Note ---
Infectious Disease Subjective - Review of Systems Service Date: 06/28/19 Events since last encounter: Constipated. Subjective: unreliable history. Infectious Disease Objective - Results Result Diagrams: 06/27/19 18:20 06/27/19 18:20 Recent Labs: Laboratory Last Values WBC 6.6 Th/cmm (4.8-10.8) 06/27/19 18:20 RBC 4.29 Mil/cmm (3.80-5.20) 06/27/19 18:20 Hgb 14.0 gm/dL (12-16) 06/27/19 18:20 Hct 41.9 % (41.0-60) 06/27/19 18:20 MCV 97.7 fl (81-100) 06/27/19 18:20 MCH 32.7 pg (27.0-31.0) H 06/27/19 18:20 MCHC Differential 33.4 pg (28.0-36.0) 06/27/19 18:20 RDW 12.9 % (11.5-20.0) 06/27/19 18:20 Plt Count 103 Th/cmm (150-400) L 06/27/19 18:20 MPV 8.6 fl 06/27/19 18:20 Neutrophils % 38.4 % (40.0-80.0) L 06/27/19 18:20 Lymphocytes % 49.5 % (20.0-50.0) 06/27/19 18:20 Monocytes % 9.1 % (2.0-10.0) 06/27/19 18:20 Eosinophils % 2.9 % (0.0-5.0) 06/27/19 18:20 Basophils % 0.1 % (0.0-2.0) 06/27/19 18:20 Sodium 142 mEq/L (136-145) 06/27/19 18:20 Potassium 3.9 mEq/L (3.5-5.1) 06/27/19 18:20 Chloride 105 mEq/L (98-107) 06/27/19 18:20 Carbon Dioxide 29.8 mEq/L (21.0-31.0) 06/27/19 18:20 Anion Gap 11.1 (7.0-16.0) 06/27/19 18:20 BUN 36 mg/dL (7-25) H 06/27/19 18:20 Creatinine 0.8 mg/dL (0.6-1.2) 06/27/19 18:20 Est GFR ( Amer) TNP 06/27/19 18:20 Est GFR (Non-Af Amer) TNP 06/27/19 18:20 BUN/Creatinine Ratio 45.0 06/27/19 18:20 Glucose 115 mg/dL (70-105) H 06/27/19 18:20 Calcium 9.7 mg/dL (8.6-10.3) 06/27/19 18:20 Total Bilirubin 0.6 mg/dL (0.3-1.0) 06/27/19 18:20 AST 88 U/L (13-39) H 06/27/19 18:20 ALT 79 U/L (7-52) H 06/27/19 18:20 Alkaline Phosphatase 65 U/L (34-104) 06/27/19 18:20 Troponin I 0.07 ng/mL (0.01-0.05) H* D 06/27/19 18:20 B-Natriuretic Peptide 276.0 pg/mL (5.0-100.0) H 06/26/19 15:05 Total Protein 6.4 gm/dL (6.0-8.3) 06/27/19 18:20 Albumin 3.4 gm/dL (3.7-5.3) L 06/27/19 18:20 Globulin 3.0 gm/dL 06/27/19 18:20 Albumin/Globulin Ratio 1.1 (1.0-1.8) 06/27/19 18:20 Triglycerides 109 mg/dL (<150) 06/26/19 15:05 Cholesterol 142 mg/dL (<200) 06/26/19 15:05 LDL Cholesterol Direct 89 mg/dL (75-193) 06/26/19 15:05 HDL Cholesterol 32 mg/dL (23-92) 06/26/19 15:05 TSH 0.23 uIU/ml (0.34-5.60) L 06/26/19 15:05 Salicylates < 25.0 mg/L (30.0-100.0) L 06/26/19 15:05 Acetaminophen < 10.0 ug/mL (10.0-30.0) L 06/26/19 15:05 Valproic Acid 33.8 ug/mL (50.0-100.0) L 06/26/19 15:05 Ethyl Alcohol < 10 mg/dL (0-10) 06/26/19 15:05 RPR NONREACTIVE (NONREACTIVE) 06/26/19 15:05 - Physical Exam Vitals and I&O: Vital Signs Temp 98.4 F 06/29/19 01:00 Pulse 90 06/29/19 01:00 Resp 18 06/29/19 01:00 BP 154/75 06/29/19 01:00 Pulse Ox 95 06/29/19 01:00 Intake & Output 06/28/19 06/28/19 06/29/19 06:59 18:59 06:59 Intake Total 300 400 Balance 300 400 Weight (lbs) 94.347 kg 94.347 kg Intake: Oral 300 400 Other: # Voids 2 3 # Bowel Movements 1 Weight Source Bedscale Bedscale Active Medications: Current Medications Divalproex Sodium (Depakote Dr) 125 mg PO Q12HR [facility]; Protocol Stop: 08/26/19 20:59 Last Admin: 06/28/19 21:09 Dose: 125 mg Docusate Sodium (Colace) 200 mg PO DAILY [facility] Stop: 08/27/19 19:29 Last Admin: 06/28/19 21:09 Dose: 200 mg Furosemide (Lasix) 40 mg IVP DAILY [facility] Stop: 08/26/19 08:59 Last Admin: 06/28/19 08:19 Dose: 40 mg Levofloxacin (Levaquin) 500 mg PO DAILY [facility] Stop: 08/27/19 08:59 Last Admin: 06/28/19 08:19 Dose: 500 mg Magnesium Hydroxide (Milk Of Magnesia) 30 ml PO HS PRN PRN Reason: Constipation Stop: 08/27/19 05:25 Multivitamins/Vitamin C (Theragran) 1 tab PO DAILY [facility] Stop: 08/27/19 08:59 Last Admin: 06/28/19 08:19 Dose: 1 tab Quetiapine Fumarate (Seroquel) 25 mg PO HS [facility]; Protocol Stop: 08/26/19 20:59 Last Admin: 06/28/19 21:09 Dose: 25 mg General: no acute distress, cachectic HEENT: atraumatic, normocephalic, PERRLA, EOMI Neck: supple, no thyromegaly, no lymphadenopathy, no rigid Cardiovascular: S1S2, regular Lungs: clear to auscultation bilaterally, clear to percussion Abdomen: soft, bowel sounds, no tender, no distended Extremities: no cyanosis, no clubbing, no edema Neurological: awake, alert Skin: intact - Procedures Procedures: Procedures Procedure Code Date ABDOMINAL PROCTOPEXY 48.75 04/05/15 CORRECT RECTAL PROLAPSE 81253 04/05/15 OTHER GROUP THERAPY 94.44 04/13/15 Infectious Disease Assmt/Plan - Assessment Assessment: 1. Leukocytosis. 2. Pneumonia. 3. Psychosis. 4. Chronic obstructive pulmonary disease exacerbation. 5. History of Schizophrenia. - Plan Plan: [facility] eval. Colace given. Enema
[2019-06-29] MEDS ORDERED: Fleet Enema 135 mL RC PRN (03:30)
--- NOTE | 2019-06-29 08:12 | Diagnostic Imaging Report ---
Exam: KUB of the abdomen HISTORY: Vomiting Findings: Multiple views of the abdomen reviewed. The study demonstrates evidence of previous cholecystectomy. Bony structures intact. The bowel gas distribution is nonspecific. Incidentally noted left lower lobe infiltrate IMPRESSION Nonspecific bowel gas pattern. Left lower lobe infiltrate. Clinical correlation recommended.
[2019-06-29] MEDS: Multivitamin Tab PO SCH (10:06)
--- NOTE | 2019-06-29 12:43 | Infectious Disease Prog Note ---
Infectious Disease Subjective - Review of Systems Service Date: 06/29/19 Subjective: Refusing treatment. no fever. aggressive behavior. Infectious Disease Objective - Results Result Diagrams: 06/27/19 18:20 06/27/19 18:20 Recent Labs: Laboratory Last Values WBC 6.6 Th/cmm (4.8-10.8) 06/27/19 18:20 RBC 4.29 Mil/cmm (3.80-5.20) 06/27/19 18:20 Hgb 14.0 gm/dL (12-16) 06/27/19 18:20 Hct 41.9 % (41.0-60) 06/27/19 18:20 MCV 97.7 fl (81-100) 06/27/19 18:20 MCH 32.7 pg (27.0-31.0) H 06/27/19 18:20 MCHC Differential 33.4 pg (28.0-36.0) 06/27/19 18:20 RDW 12.9 % (11.5-20.0) 06/27/19 18:20 Plt Count 103 Th/cmm (150-400) L 06/27/19 18:20 MPV 8.6 fl 06/27/19 18:20 Neutrophils % 38.4 % (40.0-80.0) L 06/27/19 18:20 Lymphocytes % 49.5 % (20.0-50.0) 06/27/19 18:20 Monocytes % 9.1 % (2.0-10.0) 06/27/19 18:20 Eosinophils % 2.9 % (0.0-5.0) 06/27/19 18:20 Basophils % 0.1 % (0.0-2.0) 06/27/19 18:20 Sodium 142 mEq/L (136-145) 06/27/19 18:20 Potassium 3.9 mEq/L (3.5-5.1) 06/27/19 18:20 Chloride 105 mEq/L (98-107) 06/27/19 18:20 Carbon Dioxide 29.8 mEq/L (21.0-31.0) 06/27/19 18:20 Anion Gap 11.1 (7.0-16.0) 06/27/19 18:20 BUN 36 mg/dL (7-25) H 06/27/19 18:20 Creatinine 0.8 mg/dL (0.6-1.2) 06/27/19 18:20 Est GFR ( Amer) TNP 06/27/19 18:20 Est GFR (Non-Af Amer) TNP 06/27/19 18:20 BUN/Creatinine Ratio 45.0 06/27/19 18:20 Glucose 115 mg/dL (70-105) H 06/27/19 18:20 Calcium 9.7 mg/dL (8.6-10.3) 06/27/19 18:20 Total Bilirubin 0.6 mg/dL (0.3-1.0) 06/27/19 18:20 AST 88 U/L (13-39) H 06/27/19 18:20 ALT 79 U/L (7-52) H 06/27/19 18:20 Alkaline Phosphatase 65 U/L (34-104) 06/27/19 18:20 Troponin I 0.07 ng/mL (0.01-0.05) H* D 06/27/19 18:20 B-Natriuretic Peptide 276.0 pg/mL (5.0-100.0) H 06/26/19 15:05 Total Protein 6.4 gm/dL (6.0-8.3) 06/27/19 18:20 Albumin 3.4 gm/dL (3.7-5.3) L 06/27/19 18:20 Globulin 3.0 gm/dL 06/27/19 18:20 Albumin/Globulin Ratio 1.1 (1.0-1.8) 06/27/19 18:20 Triglycerides 109 mg/dL (<150) 06/26/19 15:05 Cholesterol 142 mg/dL (<200) 06/26/19 15:05 LDL Cholesterol Direct 89 mg/dL (75-193) 06/26/19 15:05 HDL Cholesterol 32 mg/dL (23-92) 06/26/19 15:05 TSH 0.23 uIU/ml (0.34-5.60) L 06/26/19 15:05 Salicylates < 25.0 mg/L (30.0-100.0) L 06/26/19 15:05 Acetaminophen < 10.0 ug/mL (10.0-30.0) L 06/26/19 15:05 Valproic Acid 33.8 ug/mL (50.0-100.0) L 06/26/19 15:05 Ethyl Alcohol < 10 mg/dL (0-10) 06/26/19 15:05 RPR NONREACTIVE (NONREACTIVE) 06/26/19 15:05 - Physical Exam Vitals and I&O: Vital Signs Temp 97.4 F 06/29/19 11:58 Pulse 77 06/29/19 11:58 Resp 19 06/29/19 11:58 BP 139/77 06/29/19 11:58 Pulse Ox 96 06/29/19 11:58 Intake & Output 06/28/19 06/29/19 06/29/19 18:59 06:59 18:59 Intake Total 400 Balance 400 Weight (lbs) 94.347 kg 94.347 kg Intake: Oral 400 Other: # Voids 3 2 # Bowel Movements 1 Weight Source Bedscale Bedscale Active Medications: Current Medications Divalproex Sodium (Depakote Dr) 250 mg PO Q12HR [facility]; Protocol Stop: 08/28/19 08:59 Last Admin: 06/29/19 11:56 Dose: Not Given Docusate Sodium (Colace) 200 mg PO DAILY [facility] Stop: 08/27/19 19:29 Last Admin: 06/29/19 11:56 Dose: Not Given Furosemide (Lasix) 40 mg IVP DAILY [facility] Stop: 08/26/19 08:59 Last Admin: 06/29/19 10:06 Dose: 40 mg Levofloxacin (Levaquin) 500 mg PO DAILY [facility] Stop: 08/27/19 08:59 Last Admin: 06/29/19 11:56 Dose: Not Given Lorazepam (Ativan) 1 mg PO Q6HR PRN; Protocol PRN Reason: Anxiety Stop: 08/28/19 07:35 Magnesium Hydroxide (Milk Of Magnesia) 30 ml PO HS PRN PRN Reason: Constipation Stop: 08/27/19 05:25 Multivitamins/Vitamin C (Theragran) 1 tab PO DAILY [facility] Stop: 08/27/19 08:59 Last Admin: 06/29/19 10:06 Dose: 1 tab Quetiapine Fumarate (Seroquel) 50 mg PO TID [facility]; Protocol Stop: 08/28/19 08:59 Last Admin: 06/29/19 10:36 Dose: Not Given Sodium Phosphate (Fleet Enema) 135 ml RC PRN PRN PRN Reason: Constipation Stop: 08/28/19 03:29 General: no acute distress, well developed, well nourished HEENT: atraumatic, normocephalic, PERRLA, EOMI Neck: supple, no thyromegaly Cardiovascular: S1S2, regular Lungs: clear to auscultation bilaterally, clear to percussion Abdomen: soft, no tender, no distended, no hepatomegaly Extremities: no cyanosis, no clubbing, no edema Neurological: awake, alert Skin: intact - Procedures Procedures: Procedures Procedure Code Date ABDOMINAL PROCTOPEXY 48.75 04/05/15 CORRECT RECTAL PROLAPSE 61339 04/05/15 OTHER GROUP THERAPY 94.44 04/13/15 Infectious Disease Assmt/Plan - Assessment Assessment: 1. Aggressive behaviour. 2. Pneumonia. 3. Psychosis. 4. Chronic obstructive pulmonary disease exacerbation. 5. History of Schizophrenia. 6. CHF. - [facility] Enema. If accepted may transfer to the [facility].
[2019-06-29] MEDS: Therahoney Gel 42.5gm Tube TP SCH (17:50)
--- NOTE | 2019-06-30 01:23 | Progress Notes ---
DATE: PSYCHIATRIC PROGRESS NOTE LOCATION: The patient is in room 17, bed B. SUBJECTIVE: Chart reviewed and the patient interviewed. Also discussed the patient's condition with the staff and reviewed records and labs. The patient is extremely irritable and is extremely agitated. The patient is taking off her clothes and she is yelling and screaming all night for no apparent reason according to the staff. Also, during my trial to interview the patient, the patient is extremely irritable and is extremely agitated. The patient also is having severe mood swings. She also is still noncompliant with taking his medications and the patient at times spitting her medications. ASSESSMENT: The patient is still extremely agitated and is still extremely irritable. TREATMENT PLAN: We will continue monitoring her behavior and her condition closely. Also, we will change her Depakote to be given as Depakote liquid in a dose of 250 twice a day and we will monitor Depakote blood level. Also, we will increase Seroquel to be given in a dose of 50 mg 3 times a day. Also, we will work on her irritability and her agitation and we will give Ativan on a p.r.n. basis. JOB# [id number]
[2019-06-30] MEDS: Multivitamin Tab PO SCH (09:53)
[2019-06-30] MEDS: Therahoney Gel 42.5gm Tube TP SCH (09:53)
--- NOTE | 2019-06-30 13:07 | Infectious Disease Prog Note ---
Infectious Disease Subjective - Review of Systems Service Date: 06/30/19 Events since last encounter: None Subjective: Refusing treatment. no fever. aggressive behavior. Infectious Disease Objective - Results Result Diagrams: 06/27/19 18:20 06/27/19 18:20 Recent Labs: Laboratory Last Values WBC 6.6 Th/cmm (4.8-10.8) 06/27/19 18:20 RBC 4.29 Mil/cmm (3.80-5.20) 06/27/19 18:20 Hgb 14.0 gm/dL (12-16) 06/27/19 18:20 Hct 41.9 % (41.0-60) 06/27/19 18:20 MCV 97.7 fl (81-100) 06/27/19 18:20 MCH 32.7 pg (27.0-31.0) H 06/27/19 18:20 MCHC Differential 33.4 pg (28.0-36.0) 06/27/19 18:20 RDW 12.9 % (11.5-20.0) 06/27/19 18:20 Plt Count 103 Th/cmm (150-400) L 06/27/19 18:20 MPV 8.6 fl 06/27/19 18:20 Neutrophils % 38.4 % (40.0-80.0) L 06/27/19 18:20 Lymphocytes % 49.5 % (20.0-50.0) 06/27/19 18:20 Monocytes % 9.1 % (2.0-10.0) 06/27/19 18:20 Eosinophils % 2.9 % (0.0-5.0) 06/27/19 18:20 Basophils % 0.1 % (0.0-2.0) 06/27/19 18:20 Sodium 142 mEq/L (136-145) 06/27/19 18:20 Potassium 3.9 mEq/L (3.5-5.1) 06/27/19 18:20 Chloride 105 mEq/L (98-107) 06/27/19 18:20 Carbon Dioxide 29.8 mEq/L (21.0-31.0) 06/27/19 18:20 Anion Gap 11.1 (7.0-16.0) 06/27/19 18:20 BUN 36 mg/dL (7-25) H 06/27/19 18:20 Creatinine 0.8 mg/dL (0.6-1.2) 06/27/19 18:20 Est GFR ( Amer) TNP 06/27/19 18:20 Est GFR (Non-Af Amer) TNP 06/27/19 18:20 BUN/Creatinine Ratio 45.0 06/27/19 18:20 Glucose 115 mg/dL (70-105) H 06/27/19 18:20 Calcium 9.7 mg/dL (8.6-10.3) 06/27/19 18:20 Total Bilirubin 0.6 mg/dL (0.3-1.0) 06/27/19 18:20 AST 88 U/L (13-39) H 06/27/19 18:20 ALT 79 U/L (7-52) H 06/27/19 18:20 Alkaline Phosphatase 65 U/L (34-104) 06/27/19 18:20 Troponin I 0.07 ng/mL (0.01-0.05) H* D 06/27/19 18:20 B-Natriuretic Peptide 276.0 pg/mL (5.0-100.0) H 06/26/19 15:05 Total Protein 6.4 gm/dL (6.0-8.3) 06/27/19 18:20 Albumin 3.4 gm/dL (3.7-5.3) L 06/27/19 18:20 Globulin 3.0 gm/dL 06/27/19 18:20 Albumin/Globulin Ratio 1.1 (1.0-1.8) 06/27/19 18:20 Triglycerides 109 mg/dL (<150) 06/26/19 15:05 Cholesterol 142 mg/dL (<200) 06/26/19 15:05 LDL Cholesterol Direct 89 mg/dL (75-193) 06/26/19 15:05 HDL Cholesterol 32 mg/dL (23-92) 06/26/19 15:05 TSH 0.23 uIU/ml (0.34-5.60) L 06/26/19 15:05 Salicylates < 25.0 mg/L (30.0-100.0) L 06/26/19 15:05 Acetaminophen < 10.0 ug/mL (10.0-30.0) L 06/26/19 15:05 Valproic Acid 33.8 ug/mL (50.0-100.0) L 06/26/19 15:05 Ethyl Alcohol < 10 mg/dL (0-10) 06/26/19 15:05 RPR NONREACTIVE (NONREACTIVE) 06/26/19 15:05 - Physical Exam Vitals and I&O: Vital Signs Temp 97.6 F 06/30/19 11:28 Pulse 79 06/30/19 11:28 Resp 18 06/30/19 11:28 BP 123/71 06/30/19 11:28 Pulse Ox 96 06/30/19 11:28 Intake & Output 06/29/19 06/30/19 06/30/19 18:59 06:59 18:59 Intake Total 100 240 Balance 100 240 Weight (lbs) 94.347 kg 94.347 kg Intake: Oral 100 240 Other: # Voids 3 2 # Bowel Movements 1 1 Weight Source Bedscale Bedscale Active Medications: Current Medications Divalproex Sodium (Depakote Dr) 250 mg PO Q12HR STEFANY; Protocol Stop: 08/28/19 08:59 Last Admin: 06/30/19 09:52 Dose: 250 mg Docusate Sodium (Colace) 200 mg PO DAILY STEFANY Stop: 08/27/19 19:29 Last Admin: 06/30/19 09:53 Dose: 200 mg Furosemide (Lasix) 40 mg IVP DAILY STEFANY Stop: 08/26/19 08:59 Last Admin: 06/30/19 09:57 Dose: 40 mg Levofloxacin (Levaquin) 500 mg PO DAILY STEFANY Stop: 08/27/19 08:59 Last Admin: 06/30/19 09:53 Dose: 500 mg Lorazepam (Ativan) 1 mg PO Q6HR PRN; Protocol PRN Reason: Anxiety Stop: 08/28/19 07:35 Last Admin: 06/30/19 12:26 Dose: 1 mg Magnesium Hydroxide (Milk Of Magnesia) 30 ml PO HS PRN PRN Reason: Constipation Stop: 08/27/19 05:25 Multivitamins/Vitamin C (Theragran) 1 tab PO DAILY STEFANY Stop: 08/27/19 08:59 Last Admin: 06/30/19 09:53 Dose: 1 tab Quetiapine Fumarate (Seroquel) 50 mg PO TID STEFANY; Protocol Stop: 08/28/19 08:59 Last Admin: 06/30/19 09:53 Dose: 50 mg Sodium Phosphate (Fleet Enema) 135 ml RC DAILY PRN PRN Reason: IF MOM INEFFECTIVE Stop: 08/28/19 03:29 Wound Care/Dressing Products (Therahoney) 1 appl TP DAILY STEFANY Stop: 08/28/19 16:59 Last Admin: 06/30/19 09:53 Dose: 1 appl General: no acute distress, cachectic HEENT: atraumatic, normocephalic, PERRLA, EOMI Neck: supple, no thyromegaly Cardiovascular: S1S2, regular Lungs: clear to auscultation bilaterally, clear to percussion Abdomen: soft, no tender, no distended, no mass Extremities: no cyanosis, no clubbing, no edema Neurological: awake, alert Skin: intact - Procedures Procedures: Procedures Procedure Code Date ABDOMINAL PROCTOPEXY 48.75 04/05/15 CORRECT RECTAL PROLAPSE 68848 04/05/15 OTHER GROUP THERAPY 94.44 04/13/15 Infectious Disease Assmt/Plan - Assessment Assessment: 1. Aggressive behaviour. 2. Pneumonia. 3. Psychosis. 4. Chronic obstructive pulmonary disease exacerbation. 5. History of Schizophrenia. 6. CHF. - Plan Plan: Geropsych eval. Colace given. Enema. If accepted may transfer to the [facility].
--- NOTE | 2019-07-02 03:33 | Discharge Summary ---
DATE OF DISCHARGE: 06/30/2019 HISTORY OF PRESENT ILLNESS AND HOSPITAL COURSE: The patient is a 73-year-old female with a past medical history of schizophrenia, psychosis, and generalized weakness, brought in from nursing facility for aggressive behavior and agitation. She was taking and throwing things on the medical staff. So, the patient was brought to the ER for further evaluation and management. On initial evaluation, the patient was afebrile and WBC count is 7700. Chest x-ray showed pneumonia and the patient was started on Levaquin, which was continued on the hospital course. The patient found to be agitated the most of the time and not giving appropriate history. Ultimately, the patient was monitored and found to be stable medically. So the patient was made ready for discharge/transfer to the Geropsych Unit and psych client support consultant. Past medical history of schizophrenia, psychosis, and weakness. DISCHARGE DIAGNOSES: 1. Pneumonia. 2. Psychosis. 3. Chronic obstructive pulmonary disease. 4. History of schizophrenia. 5. Aggressive behavior. 6. Congestive heart failure. DISCHARGE MEDICATIONS: As per medication reconciliation sheet. DISCHARGE CONDITION: Medically stable. JOB# [id number]
== END 2019-06-30 18:40 | DRG 177 ==
LOC: ER 14:04 → TELE 21:50
PROVIDERS: ADMIT Internal Medicine Infectious Disease; ATTEND Internal Medicine Infectious Disease
DX: J69.0 Pneumonitis due to inhalation of food and vomit (principal); I50.23 Acute on chronic systolic (congestive) heart failure; J44.0 Chronic obstructive pulmonary disease with (acute) lower respiratory infection; J44.1 Chronic obstructive pulmonary disease with (acute) exacerbation; I11.0 Hypertensive heart disease with heart failure; D72.829 Elevated white blood cell count, unspecified; K21.9 Gastro-esophageal reflux disease without esophagitis; F31.9 Bipolar disorder, unspecified; F03.90 Unspecified dementia, unspecified severity, without behavioral disturbance, psychotic disturbance, mood disturbance, and anxiety; F20.9 Schizophrenia, unspecified; Z88.5 Allergy status to narcotic agent; Z87.11 Personal history of peptic ulcer disease; Z82.49 Family history of ischemic heart disease and other diseases of the circulatory system; Z88.8 Allergy status to other drugs, medicaments and biological substances; Z91.14 Patient's other noncompliance with medication regimen; Z79.899 Other long term (current) drug therapy
CPT/HCPCS: 36415-UA; 71045-TC; 71046-TC; 74000-TC; 80053-TC; 80061-TC; 80164-TC; 80320-TC; 80329-TC; 83880-TC; 84443-TC; 84484-TC; 85025-TC; 86592-TC; 93005; J1940; Z7610